=== PATIENT | female | born 1965 | race Caucasian/White ===

== ENCOUNTER → 2017-10-10 12:18 | Outpatient (CLI) | payer OTHER, MEDICAID, SELFPAY ==
--- NOTE | 2017-10-10 | DI.MG.S_ITS ---
BILATERAL DIGITAL SCREENING MAMMOGRAM 3D/2D WITH CAD: 10/10/2017 CLINICAL: Routine screening. Family history of breast cancer. Comparison is made to exams dated: 01/31/2014 mammogram, 09/09/2012 mammogram, and 06/26/2011 mammogram - [facility]. There are scattered fibroglandular elements in both breasts. Current study was also evaluated with a Computer Aided Detection (CAD) system. There is a 0.5 cm oval low density mass with a circumscribed margin in the right breast at 11 o'clock posterior depth. No other significant masses, calcifications, or other findings are seen in either breast. IMPRESSION: INCOMPLETE: NEEDS ADDITIONAL IMAGING EVALUATION The 0.5 cm oval low density mass in the right breast is indeterminate. Mediolateral and spot compression views as well as additional views with possible ultrasound are recommended. This exam was interpreted at Station ID: [id number]. NOTE: For mammograms, a report in lay terms will be sent to the patient. Approximately 15% of breast malignancies will not be visualized mammographically. In the management of a palpable breast mass, a negative mammogram must not discourage biopsy of a clinically suspicious lesion. Electronically Signed By: Ernie davis/saroj:10/12/2017 11:24:58 letter sent: Additional Imaging Needed ACR BI-RADS Category 0: Incomplete 3340F
== END ==
PROVIDERS: PCP Family Medicine; Visit Provider Family Medicine
DX: Z12.31 Encounter for screening mammogram for malignant neoplasm of breast (principal); Z80.3 Family history of malignant neoplasm of breast; R92.8 Other abnormal and inconclusive findings on diagnostic imaging of breast
CPT/HCPCS: 77063; 77067

== ENCOUNTER → 2017-10-22 09:59 | Outpatient (CLI) | payer OTHER, MEDICAID, SELFPAY ==
--- NOTE | 2017-10-22 | DI.MRI.S_ITS ---
PROCEDURE: MR FOOT RT WO CON INDICATIONS: 52 year-old female with right foot metatarsalgia since 2012, with last foot surgery December 2015. TECHNIQUE: Noncontrast sagittal T1 spin echo and T2 fast spin echo with fat saturation, long-axis T1 spin echo and T2 fast spin echo with fat saturation, short-axis T1 spin echo and T2 fast spin echo with fat saturation through the forefoot. COMPARISON: [facility], , FOOT 3V RIGHT, 04/04/2016, 15:49. [facility], CR, FOOT 3V RIGHT, 11/16/2015, 20:15. [facility], CR, FOOT 3V RIGHT, 10/05/2015, 15:37. [facility], CR, FOOT 3V RIGHT, 04/12/2014, 11:03. [facility], CR, FOOT 3V RIGHT, 02/07/2014, 13:23. FINDINGS: Image quality: There is metallic susceptibility artifact from medial column fixation and fusion hardware, obscuring adjacent bony and soft tissue structures, and causing inhomogeneous fat saturation. Bones and joints: Metallic susceptibility artifact obscures much of the first and proximal second metatarsals, as well as the medial mid foot. Patient is status post medial bunionectomy as before. No metatarsal stress fractures. There is patchy bone marrow edema within the proximal fourth and fifth metatarsals. The sesamoid bones appear in expected positions, without internal edema. There is lateral tarsometatarsal joint degeneration, with fifth metatarsal base subchondral cyst formation. No suspicious marrow space occupying lesions. Soft tissues: The visualized plantar foot muscles demonstrate normal signal and bulk. Visualized flexor and extensor tendons appear intact, without tenosynovitis. The distal insertion of the peroneus brevis tendon appears intact. No soft tissue ganglion cysts or bursal fluid collections. IMPRESSION: 1. Limited overall examination, secondary to metallic susceptibility artifact from medial column fixation and fusion hardware. 2. Marrow edema in the proximal fourth and fifth metatarsal shafts, consistent with stress reaction. No stress fractures. Dictated by: Tanvir Zaman M.D. on 10/22/2017 at 12:38 Approved by: Tanvir Zaman M.D. on 10/22/2017 at 12:50
== END ==
PROVIDERS: PCP Family Medicine; Visit Provider Podiatrist
DX: M77.41 Metatarsalgia, right foot (principal)
CPT/HCPCS: 73718

== ENCOUNTER → 2017-10-28 14:23 | Outpatient (CLI) | payer OTHER, MEDICAID, SELFPAY ==
--- NOTE | 2017-10-28 14:25 | DI.US.S_ITS ---
ULTRASOUND OF RIGHT BREAST: 10/28/2017 CLINICAL: Patient returns for additional imaging over a suspected mass in the right breast. Comparison is made to exams dated: 10/28/2017 mammogram, 10/10/2017 mammogram - [facility], and 01/31/2014 mammogram - [facility]. Color flow ultrasound of the right breast was performed. Goodwin scale images of the real-time examination were reviewed. There is a benign 0.5 cm x 0.4 cm x 0.4 cm lymph node in the right breast at 9 o'clock posterior depth 9 cm from the nipple. This correlates with mammography findings. IMPRESSION: BENIGN There is no sonographic evidence of malignancy. The 0.5 cm x 0.4 cm x 0.4 cm lymph node in the right breast is benign. A 1 year screening mammogram is recommended. This exam was interpreted at Station ID: [id number]. Electronically Signed By: Miguel rangel/saroj:10/28/2017 17:24:58 letter sent: Normal Exam Ultrasound BI-RADS: 2 Benign
--- NOTE | 2017-10-28 14:25 | DI.MG.S_ITS ---
UNILATERAL RIGHT DIGITAL DIAGNOSTIC MAMMOGRAM 3D/2D: 10/28/2017 CLINICAL: Additional evaluation requested from prior study. Comparison is made to exams dated: 10/10/2017 mammogram - [facility], 01/31/2014 mammogram, and 09/09/2012 mammogram - [facility]. There are scattered fibroglandular elements in the right breast. There is an oval low density mass with a circumscribed margin in the right breast at 9 o'clock posterior depth. No other significant masses or calcifications are seen in the breast. IMPRESSION: INCOMPLETE: NEEDS ADDITIONAL IMAGING EVALUATION The oval low density mass in the right breast is indeterminate. An ultrasound is recommended. This exam was interpreted at Station ID: [id number]. NOTE: For mammograms, a report in lay terms will be sent to the patient. Approximately 15% of breast malignancies will not be visualized mammographically. In the management of a palpable breast mass, a negative mammogram must not discourage biopsy of a clinically suspicious lesion. Electronically Signed By: Miguel rangel/saroj:10/28/2017 15:47:00 ACR BI-RADS Category 0: Incomplete 3340F
== END ==
PROVIDERS: PCP Family Medicine; Visit Provider Family Medicine
DX: R92.2 Inconclusive mammogram (principal); R59.0 Localized enlarged lymph nodes
CPT/HCPCS: 76642; 77065; G0279

== ENCOUNTER → 2018-04-02 13:57 | Outpatient (CLI) | payer OTHER, MEDICAID, SELFPAY ==
--- NOTE | 2018-04-02 13:59 | DI.RAD.S_ITS ---
PROCEDURE: XR LUMBAR SPINE 2-3V INDICATIONS: back pain TECHNIQUE: 3 views of the lumbar spine were acquired. COMPARISON: [facility], , T-SPINE WITHOUT CONTRAST, 06/03/2017, 10:10. FINDINGS: Bones: 5 [id number] vertebrae are present. There is prominent S1-S2, suggesting transitional anatomy. Mild levoscoliosis. Grade 1 spondylolisthesis L3-L4. Endplate osteophytes indicate early disc degeneration.. No vertebral body compression fractures. No suspicious bony lesions. Soft tissues: Overlying bowel gas pattern is normal. No suspicious soft tissue calcifications. IMPRESSION: Transitional anatomy may be present. Endplate osteophytes indicating early disc degeneration. Dictated by: Sai Atwood [facility] Interpreted: Félix Castano MD on 04/02/2018 at 15:47 Approved by: Félix Castano M.D. on 04/03/2018 at 9:43
== END ==
PROVIDERS: PCP Family Medicine; Visit Provider Family Medicine
DX: M51.36 Other intervertebral disc degeneration, lumbar region (principal); Z78.0 Asymptomatic menopausal state; M41.86 Other forms of scoliosis, lumbar region; M43.16 Spondylolisthesis, lumbar region; M54.9 Dorsalgia, unspecified; E07.9 Disorder of thyroid, unspecified; F17.210 Nicotine dependence, cigarettes, uncomplicated
CPT/HCPCS: 72100; 77080

== ENCOUNTER → 2018-07-05 15:52 | Outpatient (CLI) | payer OTHER, MEDICAID, SELFPAY | PROVIDERS: PCP Family Medicine; Visit Provider Family Medicine | DX: L08.9 Local infection of the skin and subcutaneous tissue, unspecified (principal); S20.101A Unspecified superficial injuries of breast, right breast, initial encounter | CPT/HCPCS: 87070; 87075; 87077; 87147; 87186; 87205 ==

== ENCOUNTER → 2018-07-22 09:40 | Outpatient (CLI) | payer OTHER, MEDICAID, SELFPAY ==
[2018-07-22 10:30] LABS: Hemoglobin A1C% w Est Avg Glu 5.3 % (4.0-6.0)
[2018-07-22 11:36] LABS: Alanine Aminotransferase 28 IU/L (9-52); Albumin 4.8 g/dL (3.5-5.0); Albumin Globulin Ratio 1.4 (1.0-2.8); Alkaline Phosphatase 88 U/L (38-126); Aspartate Aminotransferase 22 IU/L (14-36); Bilirubin Total 0.3 mg/dL (0.2-1.3); Blood Urea Nitrogen 30 mg/dL (7-17); Carbon Dioxide 30 mmol/L (22-32); Chloride 99 mmol/L (98-107); Cholesterol 234 mg/dL (140-199); Estimated Glomerular Filt Rate 47.4 mL/min (>60); Globulin 3.5 g/dL (1.7-4.1); Glucose 116 mg/dL (70-100); HDL Cholesterol 54 mg/dL (40-60); HEMOLYSIS < 15 (0-50); LDL Cholesterol Calculated 117 mg/dL (<100); Sodium 139 mmol/L (137-145); Total Protein 8.3 g/dL (6.3-8.2); Triglycerides 315 mg/dL (35-150)
[2018-07-22 11:46] LABS: Potassium 5.4 mmol/L (3.4-5.1)
[2018-07-22 11:53] LABS: Vitamin D 25 Hydroxy (D3) 38.2 ng/mL (30.0-100.0)
[2018-07-22 12:01] LABS: Creatinine Urine Random 133.8 mg/dL
[2018-07-22 12:03] LABS: Microalbumi Creatinin Ratio Ur 8.2 ug/mg CR (<30); Microalbumin Urine Random 1.1 mg/dL (0-1.6)
== END ==
PROVIDERS: PCP Family Medicine; Visit Provider Family Medicine
DX: E03.9 Hypothyroidism, unspecified (principal); E04.1 Nontoxic single thyroid nodule; E78.5 Hyperlipidemia, unspecified; I10 Essential (primary) hypertension; R73.09 Other abnormal glucose; R89.9 Unspecified abnormal finding in specimens from other organs, systems and tissues; Z87.81 Personal history of (healed) traumatic fracture
CPT/HCPCS: 36415; 80053; 80061; 82043; 82306; 82570; 83036; 84443

== ENCOUNTER → 2018-10-20 14:08 | Outpatient (CLI) | payer OTHER, MEDICAID, SELFPAY ==
[2018-10-20 15:49] LABS: Alanine Aminotransferase 23 IU/L (9-52); Albumin 4.2 g/dL (3.5-5.0); Albumin Globulin Ratio 1.5 (1.0-2.8); Alkaline Phosphatase 88 U/L (38-126); Aspartate Aminotransferase 22 IU/L (14-36); BUN Creatinine Ratio 22.7 (6-22); Bilirubin Total 0.4 mg/dL (0.2-1.3); Blood Urea Nitrogen 34 mg/dL (7-17); Carbon Dioxide 29 mmol/L (22-32); Chloride 100 mmol/L (98-107); Estimated Glomerular Filt Rate 36.6 mL/min (>60); Globulin 2.8 g/dL (1.7-4.1); Glucose 111 mg/dL (70-100); HEMOLYSIS < 15 (0-50); Potassium 4.6 mmol/L (3.4-5.1); Sodium 139 mmol/L (137-145)
== END ==
PROVIDERS: PCP Family Medicine; Visit Provider Family Medicine
DX: I10 Essential (primary) hypertension (principal)
CPT/HCPCS: 36415; 80053

== ENCOUNTER → 2018-10-27 12:40 | Outpatient (CLI) | payer OTHER, MEDICAID, SELFPAY ==
[2018-10-27 13:45] LABS: Blood Urea Nitrogen 17 mg/dL (7-17); Calcium 9.7 mg/dL (8.4-10.2); Carbon Dioxide 31 mmol/L (22-32); Chloride 99 mmol/L (98-107); Estimated Glomerular Filt Rate 58.5 mL/min (>60); Glucose 105 mg/dL (70-100); HEMOLYSIS < 15 (0-50); Potassium 4.3 mmol/L (3.4-5.1); Sodium 137 mmol/L (137-145)
[2018-10-27 14:23] LABS: Hemoglobin A1C% w Est Avg Glu 5.4 % (4.0-6.0)
== END ==
PROVIDERS: PCP Family Medicine; Visit Provider Family Medicine
DX: N28.9 Disorder of kidney and ureter, unspecified (principal); R89.9 Unspecified abnormal finding in specimens from other organs, systems and tissues; R73.09 Other abnormal glucose; Z13.1 Encounter for screening for diabetes mellitus
CPT/HCPCS: 36415; 80048; 83036

== ENCOUNTER → 2018-10-27 14:01 | Outpatient (CLI) | payer OTHER, MEDICAID, SELFPAY ==
--- NOTE | 2018-10-27 14:02 | DI.MRI.S_ITS ---
PROCEDURE: MR KNEE RT WO CON INDICATIONS: right knee pain TECHNIQUE: Noncontrast sagittal PD fast spin echo and T2 fast spin echo with fat saturation, sagittal 3-D FLASH with fat saturation; coronal T1 spin echo and PD fast spin echo with fat saturation, and axial PD fast spin echo with fat saturation through the knee. COMPARISON: None. FINDINGS: Image quality: Excellent. Menisci: The medial and lateral menisci demonstrate normal morphology and internal signal. The meniscal root ligaments appear intact. Cruciate ligaments: The anterior and posterior cruciate ligaments appear intact. Medial structures: The medial collateral ligament appears intact. Visualized portions of the pes anserinus tendons appear normal. Small amount of medial bursal fluid. Lateral structures: The lateral collateral ligament, long and short heads of the biceps femoris tendon appear intact. The popliteus tendon appears normal. Iliotibial band appears normal. Anterior structures: The quadriceps and patellar tendons appear intact. There is mild T2 signal elevation within the patellar tendon at the patellar and tibial insertion sites. Patellar alignment is normal. No femoral trochlear dysplasia or ventral trochlear prominence. No edema in the infrapatellar fat pad. Bones and cartilage: No bone marrow contusions or fractures. Mild diffuse articular cartilage loss overlies the weightbearing aspects of the medial femoral condyle and medial tibial plateau. A focal region of moderate articular cartilage loss overlies the medial patellar facet, spanning roughly 4 mm. Joint space: There is physiologic knee joint fluid. No Elizabeth's cyst. Normal appearing synovial plicae are incidentally noted. IMPRESSION: 1. Mild patellar tendinitis. 2. No internal derangement. 3. Medial and patellofemoral compartment due to cartilage loss. 4. Mild medial bursitis. Dictated by: Hoda Da Silva M.D. on 10/27/2018 at 15:34 Approved by: Hoda Da Silva M.D. on 10/27/2018 at 15:36
== END ==
PROVIDERS: PCP Family Medicine; Visit Provider Family Medicine
DX: M25.561 Pain in right knee (principal); M76.51 Patellar tendinitis, right knee; N28.9 Disorder of kidney and ureter, unspecified; R73.09 Other abnormal glucose; R89.9 Unspecified abnormal finding in specimens from other organs, systems and tissues; Z13.1 Encounter for screening for diabetes mellitus
CPT/HCPCS: 36415; 73721; 80048; 83036

== ENCOUNTER → 2018-11-10 13:59 | Outpatient (CLI) | payer OTHER, MEDICAID, SELFPAY ==
--- NOTE | 2018-11-10 14:07 | DI.NM.S_ITS ---
PROCEDURE: NM HIDA WITH CCK PHARMACEUTICAL: 5.0 mCi Tc-99m mebrofenin IV; 1.0 mcg CCK IV. INDICATIONS: Right upper quadrant pain TECHNIQUE: Following intravenous administration of Tc-99m mebrofenin, sequential anterior abdominal images were obtained. To evaluate the contractile response of the gallbladder in response to Cholecystokinin (CCK), sincalide (0.02 ?g/kg) was administered by slow intravenous infusion approximately 60 minutes after the administration of the radiopharmaceutical. Sequential imaging was continued for 30 minutes after the start of CCK infusion. Gallbladder ejection fraction was calculated. COMPARISON: [facility], CT, CT ABDOMEN PELVIS WITH CONTRAST, 10/24/2018, 22:07. FINDINGS: Biliary scan: There is normal tracer uptake and excretion by the liver. There is normal visualization of the intrahepatic ducts, common bile duct, and gallbladder. There is normal tracer transit into the duodenum. CCK stimulation: There is normal contractile response of the gallbladder to CCK infusion. The calculated gallbladder ejection fraction is 84%; normal values are above 35%. It has been shown that any patient abdominal pain after CCK administration is related to the rate of CCK injection, rather than to any underlying gallbladder disease (Clinical Nuclear Medicine 2012; 37: 63-70. Journal of Nuclear Medicine 2014; 55: 1-9). IMPRESSION: 1. Normal filling of gallbladder. No evidence for acute cholecystitis. 2. Normal contractile response of gallbladder to CCK stimulation. Dictated by: Félix Castano M.D. on 11/10/2018 at 15:51 Approved by: Félix Castano M.D. on 11/10/2018 at 15:53
== END ==
PROVIDERS: PCP Family Medicine; Visit Provider Family Medicine
DX: R10.11 Right upper quadrant pain (principal)
CPT/HCPCS: 78227; A9537; J2805

== ENCOUNTER → 2018-12-01 14:46 | Outpatient (CLI) | payer OTHER, MEDICAID, SELFPAY ==
[2018-12-01 15:34] LABS: D Dimer 329 ng/mL (<230)
[2018-12-01 15:40] LABS: Add Manual Diff / Slide Review NO; Basophils Absolute Auto 100 /uL (0-100); Basophils Percent Auto 0.9 % (0-2); Eosinophils Absolute Auto 300 /uL (0-450); Eosinophils Percent Auto 2.5 % (2-4); Hematocrit 42.5 % (36-46); Hemoglobin 14.4 g/dL (12.0-16.0); Lymphocytes Absolute Auto 4400 /uL (1100-4500); Lymphocytes Percent Auto 37.3 % (25-40); Mean Corpuscular HGB Conc 33.9 % (30-36); Mean Corpuscular Hemoglobin 31.2 PG (26-34); Mean Corpuscular Volume 92.2 fL (80-100); Monocytes Absolute Auto 700 /uL (0-900); Monocytes Percent Auto 5.8 % (3-14); Neutrophils Absolute Auto 6300 /uL (1500-7000); Neutrophils Percent Auto 53.5 % (50-75); Platelet Count 470 X10^3/uL (150-400); Red Blood Cell Count 4.61 X10^6/uL (4.0-5.2); Red Cell Distribution Width 13.4 % (11.6-14.8); White Blood Cell Count 11.7 X10^3/uL (4.5-11.0)
[2018-12-01 15:53] LABS: Blood Urea Nitrogen 26 mg/dL (7-17); Calcium 9.7 mg/dL (8.4-10.2); Carbon Dioxide 28 mmol/L (22-32); Chloride 101 mmol/L (98-107); Estimated Glomerular Filt Rate 58.5 mL/min (>60); Glucose 90 mg/dL (70-100); HEMOLYSIS < 15 (0-50); Potassium 4.8 mmol/L (3.4-5.1); Sodium 140 mmol/L (137-145)
== END ==
PROVIDERS: PCP Family Medicine; Visit Provider Hospitalist
DX: I10 Essential (primary) hypertension (principal); M54.9 Dorsalgia, unspecified
CPT/HCPCS: 36415; 80048; 85025; 85379

== ENCOUNTER → 2018-12-24 09:19 | Outpatient (CLI) | payer OTHER, MEDICAID, SELFPAY ==
--- NOTE | 2018-12-24 09:35 | DI.RAD.S_ITS ---
PROCEDURE: XR SACROILIAC JOINT MIN 3V INDICATIONS: Right sacroiliac joint tenderness TECHNIQUE: 3 views of the sacroiliac joints were acquired. COMPARISON: None. FINDINGS: Bones: No bony erosions or ankylosis. No suspicious bony lesions. No fractures. Partial left-sided L5 sacralization. There is mild sacroiliac sclerosis without joint space narrowing Soft tissues: Overlying bowel gas pattern is normal. No suspicious soft tissue densities. IMPRESSION: Mild bilateral sacroiliac sclerosis without joint space narrowing. Incidentally noted partial left-sided L5 sacralization Dictated by: Mariusz Dudley M.D. on 12/24/2018 at 12:48 Approved by: Mariusz Dudley M.D. on 12/24/2018 at 12:49
[2018-12-24 09:53] LABS: Appearance Urine UA CLEAR; Bilirubin Urine UA NEGATIVE (NEGATIVE); Color Urine UA YELLOW; Glucose Urine UA NEGATIVE (Negative); Ketones Urine UA NEGATIVE (NEGATIVE); Leukocyte Esterase Urine UA 1+ (NEGATIVE); Nitrite Urine UA NEGATIVE (Negative); Occult Blood Urine UA 1+ (Negative); Protein Urine UA NEGATIVE (Negative); Specific Gravity Urine UA 1.015 (1.000-1.035); Urobilinogen Urine UA 0.2 E.U./dL (0.2); pH Urine UA 5.5 (4.5-8.0)
[2018-12-24 10:30] LABS: Bacteria Urine Moderate (10-30); RBC Urine 0-1/HPF (0-5/HPF); Squamous Epithelial Cell Urine 0-1 /HPF (0-5/HPF); WBC Urine 1-5/HPF (0-5/HPF)
[2018-12-24 10:31] LABS: Culture Indicated Urine Specimen Cultured
[2018-12-24 11:17] LABS: Erythrocyte Sedimentation Rate 5 MM/HR (0-20)
[2018-12-24 11:23] LABS: C-Reactive Protein Quant 1.3 mg/dL (<1.0)
== END ==
PROVIDERS: Hospitalist; PCP Family Medicine; Visit Provider Family Medicine
DX: M46.1 Sacroiliitis, not elsewhere classified (principal); M54.9 Dorsalgia, unspecified
CPT/HCPCS: 36415; 72202; 81001; 85651; 86140; 87077; 87086; 87186

== ENCOUNTER → 2018-12-31 09:25 | Outpatient (CLI) | payer OTHER, MEDICAID, SELFPAY ==
[2019-01-02 21:26] LABS: HLA B27 NEGATIVE (Negative)
== END ==
PROVIDERS: PCP Family Medicine; Visit Provider Family Medicine
DX: M46.1 Sacroiliitis, not elsewhere classified (principal)
CPT/HCPCS: 36415; 86812

== ENCOUNTER → 2019-01-05 13:04 | Outpatient (CLI) | payer OTHER, MEDICAID, SELFPAY ==
[2019-01-05 13:48] LABS: Bacteria Urine None Seen
[2019-01-05 13:52] LABS: Appearance Urine UA CLEAR; Bilirubin Urine UA NEGATIVE (NEGATIVE); Color Urine UA YELLOW; Glucose Urine UA NEGATIVE (Negative); Ketones Urine UA NEGATIVE (NEGATIVE); Leukocyte Esterase Urine UA 1+ (NEGATIVE); Nitrite Urine UA NEGATIVE (Negative); Occult Blood Urine UA 1+ (Negative); Protein Urine UA NEGATIVE (Negative); Urobilinogen Urine UA 0.2 E.U./dL (0.2)
[2019-01-05 13:58] LABS: Culture Indicated Urine Cult Not Indicated; RBC Urine 5-10/HPF (0-5/HPF); Squamous Epithelial Cell Urine 5-10 /HPF (0-5/HPF); WBC Urine 5-10/HPF (0-5/HPF)
== END ==
PROVIDERS: PCP Family Medicine; Visit Provider Hospitalist
DX: M54.9 Dorsalgia, unspecified (principal)
CPT/HCPCS: 81001

== ENCOUNTER → 2019-02-21 13:47 | Outpatient (CLI) | payer OTHER, MEDICAID, SELFPAY ==
--- NOTE | 2019-02-21 13:51 | DI.MRI.S_ITS ---
PROCEDURE: MR LUMBAR SPINE WO CON INDICATIONS: severe low back pain TECHNIQUE: Noncontrast sagittal T1 spin echo and T2 fast echo, sagittal STIR, axial T1 and T2 fast spin echo through the lumbar spine. In cases with scoliosis, additional coronal T2 fast spin echo may be performed. COMPARISON: [facility], , L-SPINE WITHOUT CONTRAST, 05/04/2007, 20:45. FINDINGS: Image quality: Excellent. Alignment and Curvature: Transitional lumbosacral vertebra is seen. Please see montage image for further clarification of the spinal segmental level numbering scheme used in this report, similar to that used on prior study from 05/04/07, and prior to any spinal intervention. Left-sided lumbosacral pseudoarthrosis, congenital. There is normal bony alignment. Bone Marrow: Marrow is of normal overall signal. No acute vertebral body compression fractures. Multilevel degenerative endplate sclerosis and spurring. Diffuse facet arthropathy. Spinal Cord: Conus medullaris terminates at the L2 level. Visualized cord demonstrates normal signal and size. Paraspinous Soft Tissues: No paravertebral masses. Dorsal epidural lipomatosis is seen from the level of L3-S1 L1-L2: Normal appearance. L2-L3: Normal appearance. L3-L4: Normal appearance. L4-L5: Posterior annular fissure. Mild central canal narrowing in part due to dorsal epidural lipomatosis. Partial effacement of both lateral recesses with bilaterally symmetric appearance. Mild left foraminal narrowing. No right foraminal stenosis. Overall, no interval change L5-S1: Mild central canal narrowing due to epidural lipomatosis. Lateral recess appear grossly patent. Mild bilateral foraminal narrowing, grossly unchanged S1-S2: Sagittal canal narrowing due to epidural lipomatosis. Lateral recess appear grossly patent. No foraminal stenosis. IMPRESSION: Overall, no high-grade canal or foraminal stenosis. Increase in diffuse epidural lipomatosis since the prior study otherwise no interval change Diffuse facet arthropathy. Dictated by: Mariusz Dudley M.D. on 02/21/2019 at 17:11 Approved by: Mariusz Dudley M.D. on 02/21/2019 at 17:18
== END ==
PROVIDERS: PCP Family Medicine; Visit Provider Family Medicine
DX: M54.5 Low back pain (principal); E88.2 Lipomatosis, not elsewhere classified; M47.816 Spondylosis without myelopathy or radiculopathy, lumbar region
CPT/HCPCS: 72148

== ENCOUNTER → 2019-08-20 11:10 | Outpatient (CLI) | payer OTHER, SELFPAY ==
[2019-08-20 17:12] LABS: Influenza A - CEPHEID Flu A NEGATIVE (NEGATIVE); Influenza B - CEPHEID Flu B NEGATIVE (NEGATIVE)
[2019-08-22 12:04] LABS: COVID19 Sendout Not Detected (Not Detected)
== END ==
PROVIDERS: PCP Family Medicine; Visit Provider Physician Assistant
DX: R05 Cough (principal); R50.9 Fever, unspecified
CPT/HCPCS: 87502; 87635

== ENCOUNTER → 2019-10-18 12:19 | Outpatient (CLI) | payer OTHER, SELFPAY ==
[2019-10-22 02:09] LABS: H pylori Breath Test Negative (Negative)
== END ==
PROVIDERS: PCP Family Medicine; Referring Provider Family Medicine; Visit Provider Family Medicine
DX: R10.13 Epigastric pain (principal)
CPT/HCPCS: 83013

== ENCOUNTER → 2019-10-22 10:02 | Outpatient (CLI) | payer OTHER, SELFPAY ==
--- NOTE | 2019-10-22 | DI.MG.S_ITS ---
BILATERAL DIGITAL SCREENING MAMMOGRAM 3D/2D WITH CAD: 10/22/2019 CLINICAL: Routine screening. Family history of breast cancer. Comparison is made to exams dated: 10/10/2017 mammogram - [facility], 01/31/2014 mammogram, and 09/09/2012 mammogram - [facility]. There are scattered fibroglandular elements in both breasts. Current study was also evaluated with a Computer Aided Detection (CAD) system. No significant masses, calcifications, or other findings are seen in either breast. There has been no significant interval change. IMPRESSION: NEGATIVE There is no mammographic evidence of malignancy. A 1 year screening mammogram is recommended. This exam was interpreted at Station ID: [id number]. NOTE: For mammograms, a report in lay terms will be sent to the patient. Approximately 15% of breast malignancies will not be visualized mammographically. In the management of a palpable breast mass, a negative mammogram must not discourage biopsy of a clinically suspicious lesion. Electronically Signed By: Fahad bethea/saroj:10/24/2019 07:48:47 letter sent: Normal Exam ACR BI-RADS Category 1: Negative 3341F
== END ==
PROVIDERS: PCP Family Medicine; Referring Provider Family Medicine; Visit Provider Family Medicine
DX: Z12.31 Encounter for screening mammogram for malignant neoplasm of breast (principal); Z80.3 Family history of malignant neoplasm of breast
CPT/HCPCS: 77063; 77067

== ENCOUNTER → 2019-11-05 14:02 | Outpatient (CLI) | payer OTHER, SELFPAY ==
[2019-11-06 02:21] LABS: COVID19 Sendout Not Detected (Not Detect)
== END ==
PROVIDERS: PCP Family Medicine; Visit Provider Physician Assistant
DX: Z01.818 Encounter for other preprocedural examination (principal)
CPT/HCPCS: 87635

== ENCOUNTER 2019-11-08 13:07 | Day surgery (SDC) | payer OTHER, SELFPAY ==
[2019-11-08] VITALS (8 sets, daily range): BP systolic 111–151; BP diastolic 87–113; PULSE 81–104; RESP 15–31; TEMP 36.2–36.6; O2SAT 92–100; BMI 36.4
--- NOTE | 2019-11-08 | PATH_ITS ---
[facility] Accession Number: [id number] . 01 Material submitted: . PART A: gastrointestinal site - GASTRIC BIOPSIES PART B: esophagus - DISTAL ESOPHAGUS BIOPSIES . 01 Diagnosis: A. Stomach, Biopsies: Gastric antral mucosa with mild chronic inflammation. Negative for Helicobacter organism by immunohistochemistry. Negative for intestinal metaplasia. Negative for dysplasia or malignancy. . B. Distal Esophagus, Biopsies: Proximal gastric-type mucosa with mild chronic inflammation. Negative for specialized intestinal metaplasia on alcian blue stain. Negative for dysplasia or malignancy. [facility] 11/10/2019 1313 Local . 01 Electronically signed: . Juan R Ambriz MD, PhD, Pathologist NPI- [id number] . 01 Gross description: . Part A: GASTRIC BIOPSIES: Received in formalin are 2 fragment(s) of trejo, soft tissue measuring 0.1 x 0.1 x 0.1 cm to 0.3 x 0.2 x 0.2 cm submitted entirely in 1 cassette(s) Part B: DISTAL ESOPHAGUS BIOPSIES: Received in formalin are 2 fragment(s) of trejo, soft tissue measuring 0.1 x 0.1 x 0.1 cm to 0.2 x 0.2 x 0.2 cm submitted entirely in 1 cassette(s) /[facility]ACK 11/08/2019 2224 Local . 01 Microscopic: . A. An immunohistochemical stain was performed to evaluate for Helicobacter organisms and is negative. The control stain showed appropriate reactivity. . B. An alcian blue stain is performed to evaluate for specialized intestinal metaplasia, and is negative for goblet cells. A control stain shows appropriate reactivity. . * This test was developed and its performance characteristics determined by [employer]. It has not been cleared or approved by the U.S. Food and Drug Administration. The FDA has determined that such clearance or approval is not necessary. This test is used for clinical purposes. It should not be regarded as investigational or for research. . 01 Pathologist provided ICD-10: R10.13, K29.70, K20.9 . 01 CPT . 962690, 346251, Q75887, 956813 Performed at: [address] [facility] [address], [place], [place] [id number] MD Ernie Lamb MD Phone: [phone]
[2019-11-08] MEDS: SODIUM CHLORIDE 0.9% 1,000 ML 200 ML IV (13:41)
--- NOTE | 2019-11-08 14:14 | PM.PREOP ---
Pre-operative Note COVID-19 COVID-19 status: Negative Result date/Date tested (Pos, Neg/Pending): 11/05/19 Interval Note History & Physical reviewed/Exam performed by Physician: Yes Changes to H&P: No ASA Class (for procedural sedation): III
--- NOTE | 2019-11-08 14:16 | PM.OP.ENDO ---
Operative Date/Time/Diagnoses Date of procedure: 11/08/19 Time of procedure: 14:16 Pre-op diagnosis: Epigastric pain Post-op diagnosis: other (gastritis, mild gastric ulcers without active bleeding or exposed vessel, Hill grade 4 hiatal hernia) Procedure & Clinicians Study performed: EGD with cold forceps biopsies of stomach and distal esophagus Same procedure as scheduled: Yes Indications: Epigastric pain, history of perforated peptic ulcer Surgeon: Rebekah Ordonez Procedure Notes SCOAP/Timeout: Before Procedure in detail: The patient was brought to the room and placed in left lateral decubitus position with all bony prominences padded. A bite block was positioned in the patient's mouth to protect the lips, teeth, and tongue for the procedure. A time-out was performed and then the patient was given procedural sedation starting with 4 mg of Versed and 100 mcg of fentanyl. The patient was wide awake and continuing to talk around the bite block. She was gradually given additional doses of Versed until we reached 8 mg, and the patient was still completely alert and talking around the bite block. At this point we called for the anesthesiologist to come in and put her under MAC sedation with propofol. Vitals were monitored throughout the procedure and remained stable. Once adequately sedated, the procedure was begun. The lubricated gastroscope was passed through the bite block and across the tongue and into the esophagus. A tubular view of the esophagus was maintained as the scope was advanced through the esophagus and into the stomach. The scope was advanced through the stomach and to the pylorus. The scope was gently popped through the pylorus and into the duodenal bulb. The scope was flexed and advanced into the second and third portions of the duodenum. The duodenum and duodenal bulb appeared fairly normal. No duodenal ulcers or signs of duodenitis were seen. The scope was withdrawn into the stomach. The stomach appeared irritated with moderate antral gastritis. Biopsies were taken at this site. Some mild ulcerations were seen, but no active bleeding and no exposed vessels were seen. There was no heaped up mucosa or chronic appearing ulcers. The scope was retroflexed and the gastric cardia was examined. The there was a Hill grade 4 hiatal hernia which was 4 cm x 4 cm in size. The scope was then straightened, and withdrawn into the esophagus. The Z-line appeared abnormal with tongues of salmon-colored mucosa coming up into the distal esophagus. These were biopsied. The esophagus appeared otherwise normal. The scope was then withdrawn through the esophagus with a tubular view. The scope was then withdrawn from the patient the procedure was concluded. The patient tolerated the procedure well and was transferred to the PACU in stable condition. Findings: Whyte's esophagus, gastritis and hiatal hernia Specimen(s): other (Distal esophagus, gastric mucosa) Complications: none Impression: Moderate gastritis, with some mild ulcerations, no active bleeding or exposed vessels. Post-procedure Recommendations: Continue medication(s) (Continue omeprazole but increased dose to 40 mg twice daily) and Other recommendation (Follow-up with Dr. Ordonez to review biopsy results and recommendations) Follow up: weeks (Two weeks) Disposition: PACU
[2019-11-08] MEDS: LIDOCAINE 4% SOLN 50 ML 20 ML TOP (14:37)
[2019-11-08] MEDS: fentaNYL 250 MCG/5 ML INJ IV (14:37)
[2019-11-08] MEDS: MIDAZOLAM 5 MG/5 ML VIAL IV (14:38)
[2019-11-08] MEDS: ALBUTEROL 2.5 MG/3 ML NEB (ADULT) INH (15:04)
[2019-11-08] MEDS: ACETAMINOPHEN 325 MG TABLET 650 MG PO (15:56)
--- NOTE | 2019-11-08 16:02 | SUR.PHASEII ---
Dr. Ordonez evaluated patient. ordered hydration, caffeine and Tylenol for the patient and patient to go to the ER if there is no improvement. IV site patient, po water provided. Patient declined caffeine. Tylenol given. Patient crying, holding head and rocking. Will continue to monitor.
--- NOTE | 2019-11-08 16:45 | SUR.PHASEII ---
Patient still teary. Denied improvement of the headache. Discussed recommendation to go to the ER if she is without improvement. Patient agreed. Patient declined to review discharge instructions. Patient taken to the ER with belongings bag. Report given to Olga. Patient smiling and able to transfer self to ER stretcher. IV patent. Patient's spouse arrived and with patient.
== END 2019-11-08 16:35 | disposition home or self-care (01) ==
PROVIDERS: PCP Family Medicine; Referring Provider Surgery; Visit Provider Surgery
PROC: 0DJ08ZZ Inspection of Upper Intestinal Tract, Via Natural or Artificial Opening Endoscopic (ICD-10-PCS; CPT 43235; principal; 2019-11-08 14:30)
DX: K29.50 Unspecified chronic gastritis without bleeding (principal); M79.7 Fibromyalgia; E66.9 Obesity, unspecified; I10 Essential (primary) hypertension; F17.210 Nicotine dependence, cigarettes, uncomplicated; G43.009 Migraine without aura, not intractable, without status migrainosus; K22.70 Barrett's esophagus without dysplasia; K44.9 Diaphragmatic hernia without obstruction or gangrene; K25.9 Gastric ulcer, unspecified as acute or chronic, without hemorrhage or perforation; K21.0 Gastro-esophageal reflux disease with esophagitis
CPT/HCPCS: 43239; 99283; J1100; J1200; J2250; J2704; J2765; J3010; J7613

== ENCOUNTER 2019-11-08 16:39 | Emergency (ER) | payer OTHER, SELFPAY ==
[2019-11-08 16:45] VITALS: BP 158/87; PULSE 82; RESP 16; TEMP 36.9; O2SAT 97; BMI 36.4
--- NOTE | 2019-11-08 17:07 | ED_ITS ---
HPI - Headache <Brenda GallardoJOHN - Last Filed: 11/08/19 18:41> General Chief Complaint: Headache Stated Complaint: Headache,brought from OR Time Seen by Provider: 11/08/19 16:40 History of Present Illness HPI Narrative: 54-year-old female with a history of migraines, presents emergency department from postop following an endoscopy that occurred approximately 3 hours ago. Versed and fentanyl were used for sedation. However, patient was difficult to sedate and propofol was used as well. In recovery she complained of a migraine, was given fluids and Zofran and Tylenol as well as caffeine in the recovery area. Patient was brought emergency department for further evaluation. She states that she gets migraines multiple times a month with usually to ?bad ?migraines a month. She has tried multiple medications including triptans, Reglan, amitriptyline, and etc drip without relief. Patient states she usually takes oxycodone or Dilaudid for her migraines. She reports mild light sensitivity and a frontal pain of 8/10. Patient denies double vision, vision loss, aura, neck pain, vomiting, chest pain, shortness of breath, neck stiffness, dizziness, gait disturbances, or any other concerns. Related Data Home Medications Medication Instructions Recorded Confirmed acetaminophen 500 mg capsule 1,000 mg PO Q6H PRN 11/03/19 11/08/19 Previous Rx's Medication Instructions Recorded omeprazole 20 mg capsule,delayed 20 mg PO BID #60 cap 01/13/19 release atorvastatin 40 mg tablet 40 mg PO HS #90 tab 04/18/19 cyclobenzaprine 10 mg tablet 10 mg PO BEDTIME #30 tab 08/15/19 duloxetine 60 mg capsule,delayed 60 mg PO DAILY #30 cap 08/15/19 release levothyroxine 112 mcg tablet 112 mcg PO QAM #30 tab 08/15/19 meloxicam 7.5 mg tablet 7.5 mg PO DAILY #30 tab 08/15/19 paroxetine HCl 40 mg tablet 20 mg PO QAM #45 tab 08/24/19 benzonatate 200 mg capsule 200 mg PO TID #60 cap 08/31/19 trazodone 50 mg tablet 100 mg PO BEDTIME PRN #60 tab 09/20/19 triamterene 37.5 1 tab PO QDAY #30 tab 05/11/20 mg-hydrochlorothiazide 25 mg tablet oxycodone 5 mg capsule 5 mg PO Q8H PRN #10 cap 10/18/19 omeprazole 40 mg PO BID #60 cap 11/08/19 Allergies Allergy/AdvReac Type Severity Reaction Status Date / Time felodipine [FELODIPINE] Allergy Severe EDEMA IN Verified 11/08/19 13:24 THE LOWER LEGS pineapple [PINEAPPLE] Allergy Severe TONGUE Verified 11/08/19 13:24 SWELLING strawberry [STRAWBERRY] Allergy Severe ITCHING, Verified 11/08/19 13:24 WELTS ON ARMS Sulfa (Sulfonamide Allergy Severe ANAPHYLAXIS Verified 11/08/19 13:24 Antibiotics) [SULFA (SULFONAMIDE ANTIBIOTICS)] tramadol [TRAMADOL] Allergy Severe SWELLING Verified 11/08/19 13:24 IN THE LEGS adhesive tape Allergy Intermediate red, Verified 11/08/19 14:44 blister, itching gabapentin [GABAPENTIN] Allergy Unknown leg Verified 11/08/19 13:24 swelling NSAIDS (Non-Steroidal Allergy Unknown irritates Verified 11/08/19 13:24 Anti-Inflamma GI tract [NSAIDS (NON-STEROIDAL ANTI-INFLAMMA] sucralfate AdvReac Mild itching Verified 11/08/19 13:24 Review of Systems <JOHN Deshpande - Last Filed: 11/08/19 18:41> Review of Systems Narrative: REVIEW OF SYSTEMS: GENERAL: Denies fever or chills. HENT: No head trauma. Reports headache, see HPI. EYES: No loss of vision, double vision, eye pain, or irritation. CARDIOVASCULAR: No chest pain or syncope. RESPIRATORY: No shortness of breath or cough. GASTROINTESTINAL: No vomiting, diarrhea, or constipation. Intermittent nausea, see HPI. GENITOURINARY: No flank pain or dysuria. MUSCULOSKELETAL: No pain, weakness, or deformities. INTEGUMENTARY: No rash, lesions, or pruritus. NEURO: No numbness, tingling, memory loss, or confusion. PSYCH: No behavior or mood changes. Patient History <JOHN Deshpande - Last Filed: 11/08/19 18:41> Medical History Anemia (Chronic) Anxiety (Chronic) Chicken pox (Resolved 1978) Depression (Chronic) Fibromyalgia (Chronic) Foot pain (Chronic 2012) Gastric ulcer (Resolved 01/24/10) Hypertension (Chronic) Hypothyroidism (Chronic) Irregular periods/menstrual cycles (Chronic) Mumps (Resolved 1969) Osteoarthritis (Chronic) Recurrent sinusitis (Chronic) Surgical History Anesthesia (Resolved) History of incisional hernia repair (Resolved 01/17/13) History of surgery (Resolved 12/2015) Hx of abdominal surgery (Resolved 01/24/10) Status post appendectomy (Resolved 1977) Status post delivery (Resolved 08/28/00) Status post right foot surgery (Resolved 06/19/15) Family History Grandmother Hypertension Stroke Mother Age: 75 Hypertension Mental health problem Stroke Sister Age: 47 Hypertension High cholesterol Mental health problem Father Traffic accident Grandfather Swallowed foreign body Grandfather No problems noted. Grandmother No problems noted. Sister No problems noted. 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 seatbelt use: always helmet use: Yes water heater temp set < 120 deg: Yes working smoke detector in home: Yes fire extinguisher in home: Yes carbon monox detector in home: Yes firearms in home: No Smoking Status: Current every day smoker quit status: quit date established during the past year weight has: increased > 10 lbs well-balanced diet: daily or most days daily servings fruits/ve-4 caffeine: Yes eating out: 1-3 times/week Smoking Status: Current every day smoker alcohol intake frequency: holidays/special occasions only Substance Use Type: does not use Exam <JOHN Deshpande - Last Filed: 11/08/19 18:41> Initial Vital Signs Initial Vital Signs: Vital Signs Temperature 98.4 F 11/08/19 16:45 Pulse Rate 82 11/08/19 16:45 Respiratory Rate 16 11/08/19 16:45 Blood Pressure 158/87 H 11/08/19 16:45 Pulse Oximetry 97 11/08/19 16:45 PHYSICAL EXAMINATION: GENERAL: Well groomed, alert, and cooperative. Answers questions promptly and appropriately. Vital signs noted. HENT: Normocephalic. Ear canals patent. Oral mucosa is pink and moist. EYES: PERRLA, EOMIs, conjunctiva pink, sclera white, no periorbital swelling. NECK: Full ROM, no midline or spinal tenderness. CARDIOVASCULAR: S1 and S2 sounds normal. Regular rate and rhythm, no murmurs, clicks, or bruits. RESPIRATORY: Normal respiratory rate, trachea midline, airway patent. No stridor, nasal flaring or accessory muscle use. Lungs are clear in all arevalo without wheeze, rhonchi, or crackles. MUSCULOSKELETAL: Normal gait and coordination. Equal tone and mass bilaterally. Equal strength bilaterally to upper and lower extremities. No spinal tenderness. EXTREMITIES: CMS intact. Moves all extremities. SKIN: Warm, dry, soft, appropriate color for ethnicity. No lesions, rashes, or wounds to visualized areas. NEURO: Alert and Oriented X 3. GCS: 15. Good coordination. No ataxia, or sensory deficits, or cognitive issues. Cranial Nerves: II: Visual arevalo grossly intact. III & IV & : EOMIs V: Able to open and close jaw. VII: Facial movements symetrical. Able to close eyelids tightly. VIII: Hearing grossly intact, adequate balance. X: Uvula pronation intact. XI: Patient is able to shrug shoulders. XII: Patient is able to stick out tongue and move it side to side. PSYCH: Appropriate affect and mood. <Braulio Reed DO - Last Filed: 11/09/19 07:02> Initial Vital Signs Initial Vital Signs: Vital Signs Temperature 98.4 F 11/08/19 16:45 Pulse Rate 82 11/08/19 16:45 Respiratory Rate 16 11/08/19 16:45 Blood Pressure 158/87 H 11/08/19 16:45 Pulse Oximetry 97 11/08/19 16:45 Scores <JOHN Deshpande - Last Filed: 11/08/19 18:41> GCS Chuckie coma scale eye opening: Spontaneous Chuckie coma scale verbal response: Orientated Chuckie coma scale motor response: Obey commands [place] coma scale total score: 15 Course <JOHN Deshpande - Last Filed: 11/08/19 18:41> Course Course Narrative: 1800: Patient stating she feels better and like to go home. Patient seen eating pizza, no distress. Orders Ordered: Discontinued Medications Dexamethasone (Decadron) 10 mg IV NOW ONE Stop: 11/08/19 17:58 Last Admin: 11/08/19 18:03 Dose: 10 mg Documented by: CHAVO Diphenhydramine HCl (Benadryl) 25 mg IV NOW ONE Stop: 11/08/19 17:04 Last Admin: 11/08/19 17:10 Dose: 25 mg Documented by: JAQUELINE Metoclopramide HCl (Reglan) 10 mg IV NOW ONE Stop: 11/08/19 17:04 Last Admin: 11/08/19 17:10 Dose: 10 mg Documented by: JAQUELINE Vital Signs Vital signs: Vital Signs - 8 hr 11/08/19 16:45 11/08/19 18:23 11/08/19 18:30 Temperature 98.4 F 98.3 F Pulse Rate 82 92 H 82 Respiratory Rate 16 18 20 Blood Pressure 158/87 H 140/75 Blood Pressure [Left Arm] 143/90 H Pulse Oximetry 97 98 97 <Braulio Reed DO - Last Filed: 11/09/19 07:02> Orders Ordered: Discontinued Medications Dexamethasone (Decadron) 10 mg IV NOW ONE Stop: 11/08/19 17:58 Last Admin: 11/08/19 18:03 Dose: 10 mg Documented by: CHAVO Diphenhydramine HCl (Benadryl) 25 mg IV NOW ONE Stop: 11/08/19 17:04 Last Admin: 11/08/19 17:10 Dose: 25 mg Documented by: JAQUELINE Metoclopramide HCl (Reglan) 10 mg IV NOW ONE Stop: 11/08/19 17:04 Last Admin: 11/08/19 17:10 Dose: 10 mg Documented by: JAQUELINE Vital Signs Vital signs: Vital Signs - 8 hr 11/08/19 16:45 11/08/19 18:23 11/08/19 18:30 Temperature 98.4 F 98.3 F Pulse Rate 82 92 H 82 Respiratory Rate 16 18 20 Blood Pressure 158/87 H 140/75 Blood Pressure [Left Arm] 143/90 H Pulse Oximetry 97 98 97 MDM - Headache <JOHN Deshpande - Last Filed: 11/08/19 18:41> Medical Records Attestation: I reviewed the patient's medical records. Lab Data Attestation: I reviewed the patient's lab results. MDM Narrative Medical decision making narrative: 54-year-old female with a history of migraines presenting to the emergency department for postop migraine. Patient was given fluids, Zofran, Tylenol, and caffeine and postop. She continued to have headache, with to the ER for further evaluation. No CT indicated as low concern for intracranial etiology at this time as patients pain decreased after Reglan and Benadryl was administered, neuro exam intact, patient has a history of migraines and this is consistent with her prior migraines, no alarming signs or symptoms such as vomiting. Upon discussing p ossible CT with patient, patient states I do not want one and I don't think I need one. After re-evaluation patient reports improved pain, due to small amount of continued pain, patient was given dexamethasone to help with symptoms. She was counseled about the importance of follow-up with her primary care provider and/or discussion of referral to neurologist if she continues to have issues wit h frequent migraines. Return precautions given for new or worsening symptoms. Patient agreed to plan of care verbalized understanding. Discharge Plan Departure Patient Disposition: Home Clinical Impression: Migraine Qualifiers: Migraine type: without aura Status migrainosus presence: without status migrainosus Intractability: not intractable Qualified Code(s): G43.009 - Migraine without aura, not intractable, without status migrainosus Discharge Date/Time: 11/08/19 18:28 Instructions: DI for Migraine Activity Restrictions/Additional Instructions: Thank you for entrusting me with your care today. As discussed, we have given you Benadryl, Reglan, and dexamethasone for your migraine. I recommend taking Tylenol in another 4 hours if you continue to have pain. Please follow-up with your primary care provider for discussion and possible follow-up with a neurologist if you continue to have issues with migraines. Return emergency department immediately if you develop worsening symptoms such as severe pain, vision changes, gait changes, facial droop, limb weakness, chest pain, shortness of breath, or any other concerns. Prescriptions: No Action omeprazole 20 mg capsule,delayed release(DR/EC) 20 mg PO BID Qty: 60 RF: 1 oxycodone 5 mg capsule 5 mg PO Q8H PRN (Reason: pain) Qty: 10 RF: 0 atorvastatin 40 mg tablet 40 mg PO HS Qty: 90 RF: 2 duloxetine 60 mg capsule,delayed release(DR/EC) 60 mg PO DAILY Qty: 30 RF: 5 levothyroxine 112 mcg tablet 112 mcg PO QAM Qty: 30 RF: 5 meloxicam 7.5 mg tablet 7.5 mg PO DAILY Qty: 30 RF: 5 cyclobenzaprine 10 mg tablet 10 mg PO BEDTIME Qty: 30 RF: 5 paroxetine HCl [Paxil] 40 mg tablet 20 mg PO QAM Qty: 45 RF: 3 benzonatate 200 mg capsule 200 mg PO TID Qty: 60 RF: 0 trazodone 50 mg tablet 100 mg PO BEDTIME PRN (Reason: insomnia) Qty: 60 RF: 2 triamterene-hydrochlorothiazid 37.5-25 mg tablet 1 tab PO QDAY Qty: 30 RF: 5 acetaminophen 500 mg capsule 1,000 mg PO Q6H PRN (Reason: Muscle Pain) RF: 0 omeprazole 40 mg capsule,delayed release(DR/EC) 40 mg PO BID Qty: 60 RF: 6 Referrals: Abbey Patel MD [Primary Care Provider] - <Braulio Reed DO - Last Filed: 11/09/19 07:02> [facility] Dr Reed Co-Sign Statement: I was available for consultation during this patient's emergency department visit. This chart is signed by myself for administrative purposes only. I did not have direct contact with this patient during this visit. They were seen independently by the APC.
[2019-11-08] MEDS: METOCLOPRAMIDE 10 MG/2 ML INJ IV (17:10)
[2019-11-08] MEDS: diphenhydrAMINE 50 MG/ML VIAL 25 MG IV (17:10)
[2019-11-08] MEDS: DEXAMETHASONE 10 MG/ML VIAL IV (18:03)
[2019-11-08 18:23] VITALS: BP 143/90; PULSE 92; RESP 18; O2SAT 98
[2019-11-08 18:30] VITALS: BP 140/75; PULSE 82; RESP 20; TEMP 36.8; O2SAT 97
== END 2019-11-08 18:28 | disposition home or self-care (01) ==
PROVIDERS: Emergency Provider Nurse Practitioner; PCP Family Medicine
DX: G43.009 Migraine without aura, not intractable, without status migrainosus (principal)
CPT/HCPCS: 99283; J1100; J1200; J2765

== ENCOUNTER → 2019-11-22 07:49 | Outpatient (CLI) | payer OTHER, SELFPAY ==
--- NOTE | 2019-11-22 | DI.NM.S_ITS ---
PROCEDURE: [place] HIDA WITH CCK PHARMACEUTICAL: 5.5 mCi Tc-99m mebrofenin IV; 1.0 mcg CCK IV. INDICATIONS: Epigastric pain TECHNIQUE: Following intravenous administration of Tc-99m mebrofenin, sequential anterior abdominal images were obtained. To evaluate the contractile response of the gallbladder in response to Cholecystokinin (CCK), sincalide (0.02 ?g/kg) was administered by slow intravenous infusion approximately 60 minutes after the administration of the radiopharmaceutical. Sequential imaging was continued for 30 minutes after the start of CCK infusion. Gallbladder ejection fraction was calculated. COMPARISON: [place], [place], [place] HIDA WITH CCK, 11/10/2018, 14:15. FINDINGS: Biliary scan: There is normal tracer uptake and excretion by the liver. There is normal visualization of the intrahepatic ducts, common bile duct, and gallbladder. There is normal tracer transit into the duodenum. CCK stimulation: There is appropriate contractile response of the gallbladder to CCK infusion. The calculated gallbladder ejection fraction is 89%; normal values are above 35%. It has been shown that any patient abdominal pain after CCK administration is related to the rate of CCK injection, rather than to any underlying gallbladder disease (Clinical Nuclear Medicine 2012; 37: 63-70. Journal of Nuclear Medicine 2014; 55: 1-9). IMPRESSION: 1. No evidence of cholecystitis. Dictated by: Hoda Da Silva M.D. on 11/22/2019 at 11:17 Approved by: Hoda Da Silva M.D. on 11/22/2019 at 11:18
== END ==
PROVIDERS: PCP Family Medicine; Referring Provider Surgery; Visit Provider Surgery
DX: R10.13 Epigastric pain (principal)
CPT/HCPCS: 78227; A9537; J2805

== ENCOUNTER 2019-11-28 20:22 | Emergency (ER) | payer OTHER, SELFPAY ==
[2019-11-28 20:21] VITALS: BP 128/76; PULSE 73; RESP 16; TEMP 36.3; O2SAT 100; BMI 37.1
[2019-11-28 20:48] LABS: Add Manual Diff / Slide Review NO; Basophils Absolute Auto 200 /uL (0-100); Basophils Percent Auto 1.6 % (0-2); Eosinophils Absolute Auto 300 /uL (0-450); Eosinophils Percent Auto 2.4 % (2-4); Lymphocytes Absolute Auto 4900 /uL (1100-4500); Lymphocytes Percent Auto 42.3 % (25-40); Mean Corpuscular HGB Conc 34.2 % (30-36); Mean Corpuscular Volume 93.6 fL (80-100); Monocytes Absolute Auto 600 /uL (0-900); Monocytes Percent Auto 4.8 % (3-14); Neutrophils Absolute Auto 5700 /uL (1500-7000); Neutrophils Percent Auto 48.9 % (50-75); Platelet Count 341 X10^3/uL (150-400); Red Blood Cell Count 4.38 X10^6/uL (4.0-5.2); Red Cell Distribution Width 13.3 % (11.6-14.8); White Blood Cell Count 11.7 X10^3/uL (4.5-11.0)
[2019-11-28 20:51] LABS: INR 0.9 (0.9-1.3)
[2019-11-28 20:54] LABS: PTT Partial Thromboplastin Tim 31 SECONDS (26.4-36.2)
[2019-11-28 20:55] LABS: Alanine Aminotransferase 20 IU/L (<35); Albumin 4.5 g/dL (3.5-5.0); Albumin Globulin Ratio 1.5 (1.0-2.8); Alkaline Phosphatase 75 U/L (38-126); Aspartate Aminotransferase 24 IU/L (14-36); BUN Creatinine Ratio 27.7 (6-22); Bilirubin Total 0.4 mg/dL (0.2-1.3); Blood Urea Nitrogen 23 mg/dL (7-17); Calcium 9.9 mg/dL (8.4-10.2); Carbon Dioxide 25 mmol/L (22-32); Chloride 104 mmol/L (98-107); Estimated Glomerular Filt Rate > 60.0 mL/min (>60); Globulin 3.1 g/dL (1.7-4.1); Glucose 94 mg/dL (70-100); HEMOLYSIS < 15 (0-50); Lipase 263 U/L (23-300); Potassium 3.9 mmol/L (3.4-5.1); Sodium 138 mmol/L (137-145); Total Protein 7.6 g/dL (6.3-8.2)
[2019-11-28 21:16] LABS: Bacteria Urine None Seen
[2019-11-28 21:25] LABS: Culture Indicated Urine Cult Not Indicated; RBC Urine 1-5/HPF (0-5/HPF); Squamous Epithelial Cell Urine 1-5 /HPF (0-5/HPF); WBC Urine 0-1/HPF (0-5/HPF)
[2019-11-28] MEDS: ONDANSETRON 4 MG/2 ML INJ IV (21:36)
--- NOTE | 2019-11-28 21:41 | ED_ITS ---
HPI - Abdominal Pain General Chief Complaint: Abdominal Pain Stated Complaint: abd pain Time Seen by Provider: 11/28/19 21:34 Source: EMS Mode of arrival: EMS Limitations: no limitations History of Present Illness HPI narrative: The patient presents with severe abdominal pain. She had pain issue start in the right upper quadrant September 2019. She previously had a HIDA scan last year that was benign. Outside studies of abdominal CT and ultrasound reveal no evidence of cholecystitis, I do not have the slightest but this is noted from reading medical records. HIDA scan was recently done this facility, revealing no evidence of cholecystitis she has ongoing right upper quadrant pain, she now arrives by EMS with pain radiating to her back. She has nausea without emesis. She has a history of PUD, she required emergency surgery about 10 years ago for a perforated ulcer. She takes omeprazole 20 mg daily. She has no URI symptoms, no cough, no fever chills. She has no difficulty breathing. In addition to ultrasound and CT obtained at an outside hospital prior to local treatment, an EGD was diet. The doctor noted gastritis as well as hiatal hernia. Related Data Home Medications Medication Instructions Recorded Confirmed acetaminophen 500 mg capsule 1,000 mg PO Q6H PRN 11/03/19 11/08/19 Previous Rx's Medication Instructions Recorded omeprazole 20 mg capsule,delayed 20 mg PO BID #60 cap 01/13/19 release atorvastatin 40 mg tablet 40 mg PO HS #90 tab 04/18/19 cyclobenzaprine 10 mg tablet 10 mg PO BEDTIME #30 tab 08/15/19 duloxetine 60 mg capsule,delayed 60 mg PO DAILY #30 cap 08/15/19 release levothyroxine 112 mcg tablet 112 mcg PO QAM #30 tab 08/15/19 meloxicam 7.5 mg tablet 7.5 mg PO DAILY #30 tab 08/15/19 paroxetine HCl 40 mg tablet 20 mg PO QAM #45 tab 08/24/19 benzonatate 200 mg capsule 200 mg PO TID #60 cap 08/31/19 trazodone 50 mg tablet 100 mg PO BEDTIME PRN #60 tab 09/20/19 triamterene 37.5 1 tab PO QDAY #30 tab 10/03/19 mg-hydrochlorothiazide 25 mg tablet oxycodone 5 mg capsule 5 mg PO Q8H PRN #10 cap 10/18/19 omeprazole 40 mg PO BID #60 cap 11/08/19 metoclopramide HCl 10 mg tablet 10 mg PO Q6H PRN #20 tab 11/11/19 oxycodone-acetaminophen 5 mg-325 1 tab PO Q8H PRN #20 tab 11/18/19 mg tablet Allergies Allergy/AdvReac Type Severity Reaction Status Date / Time felodipine [FELODIPINE] Allergy Severe EDEMA IN Verified 11/28/19 20:29 THE LOWER LEGS pineapple [PINEAPPLE] Allergy Severe TONGUE Verified 11/28/19 20:29 SWELLING strawberry [STRAWBERRY] Allergy Severe ITCHING, Verified 11/28/19 20:29 WELTS ON ARMS Sulfa (Sulfonamide Allergy Severe ANAPHYLAXIS Verified 11/28/19 20:29 Antibiotics) [SULFA (SULFONAMIDE ANTIBIOTICS)] tramadol [TRAMADOL] Allergy Severe SWELLING Verified 11/28/19 20:29 IN THE LEGS adhesive tape Allergy Intermediate red, Verified 11/28/19 20:29 blister, itching gabapentin [GABAPENTIN] Allergy Unknown leg Verified 11/28/19 20:29 swelling NSAIDS (Non-Steroidal Allergy Unknown irritates Verified 11/28/19 20:29 Anti-Inflamma GI tract [NSAIDS (NON-STEROIDAL ANTI-INFLAMMA] sucralfate AdvReac Mild itching Verified 11/28/19 20:29 Review of Systems Review of Systems ROS Unobtainable: All systems reviewed & are unremarkable except as noted in HPI and below Constitutional Constitutional: Denies chills, Denies fever(s), Denies lethargy and Denies weakness Eyes Comments: No visual complaints. ENT Ears, Nose, Mouth, and Throat: Denies vertigo and Denies dizziness Comments: No headache, sinus pressure, rhinorrhea or sore throat Cardiovascular Cardiovascular: Denies chest pain, Denies palpitations, Denies dyspnea and Denies orthopnea Respiratory Respiratory: Denies cough, Denies dyspnea and Denies wheezing Gastrointestinal Gastrointestinal: Reports as per HPI, Reports abdominal pain and Reports nausea Genitourinary Comments: No urinary complaints. Musculoskeletal Comments: Mid back pain associated with the abdominal pain, see HPI. Integumentary/Breasts Skin/Breast: Denies pruritus, Denies erythema, Denies rash and Denies wounds Neurologic Neurologic: Denies confusion, Denies vertigo, Denies dizziness and Denies weakness Psychiatric Psychiatric: Reports anxiety and Denies confusion Endocrine Endocrine: Denies palpitations Allergic/Immunologic Allergic/Immunologic: Denies wheezing Patient History Medical History Anemia (Chronic) Anxiety (Chronic) Chicken pox (Resolved 1978) Depression (Chronic) Fibromyalgia (Chronic) Foot pain (Chronic 2012) Gastric ulcer (Resolved 01/24/10) Hypertension (Chronic) Hypothyroidism (Chronic) Irregular periods/menstrual cycles (Chronic) Mumps (Resolved 1969) Osteoarthritis (Chronic) Recurrent sinusitis (Chronic) Surgical History Anesthesia (Resolved) History of incisional hernia repair (Resolved 01/17/13) History of surgery (Resolved 12/2015) Hx of abdominal surgery (Resolved 01/24/10) Status post appendectomy (Resolved 1977) Status post delivery (Resolved 08/28/00) Status post right foot surgery (Resolved 06/19/15) Family History Grandmother Hypertension Stroke Mother Age: 75 Hypertension Mental health problem Stroke Sister Age: 47 Hypertension High cholesterol Mental health problem Father Traffic accident Grandfather Swallowed foreign body Grandfather No problems noted. Grandmother No problems noted. Sister No problems noted. 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 seatbelt use: always helmet use: Yes water heater temp set < 120 deg: Yes working smoke detector in home: Yes fire extinguisher in home: Yes carbon monox detector in home: Yes firearms in home: No Smoking Status: Current every day smoker quit status: quit date established during the past year weight has: increased > 10 lbs well-balanced diet: daily or most days daily servings fruits/ve-4 caffeine: Yes eating out: 1-3 times/week Smoking Status: Current every day smoker alcohol intake frequency: holidays/special occasions only Substance Use Type: does not use Exam Initial Vital Signs Initial Vital Signs: Vital Signs Temperature 97.3 F L 11/28/19 20:21 Pulse Rate 73 07/06/20 20:21 Respiratory Rate 16 11/28/19 20:21 Blood Pressure 128/76 11/28/19 20:21 Pulse Oximetry 100 11/28/19 20:21 Const General: cooperative, well developed and acute distress Nutritional Appearance: well nourished [facility] Mouth: oral mucosae normal Throat: posterior oropharynx normal Eyes General: appearance normal, both eyes and all related structures Eyelids: eyelids normal Conjunctivae: conjunctivae normal Sclera: sclerae normal Pupils: PERRL EOM: EOM intact bilaterally Neck Neck: No JVD Chest Chest: normal palpation of entire chest wall Resp Effort & Inspection: normal respiratory effort and able to speak in complete sentences Auscultation: clear to auscultation bilaterally, no rales, no rhonchi and no wh eezes Cardio Rate: regular rate Rhythm: regular rhythm Heart Sounds: no click, no gallops, no murmurs and no rubs Pulses: normal peripheral pulses GI Other: RUQ tenderness with guarding, no rebound. No distention. Normal bowel sounds. No masses. Back/Spine/Pelvis Other: Right mid back tenderness. No CVAT Skin General: no rashes or lesions noted, No jaundice and No petechiae Neuro General: patient alert, patient oriented x3, gait normal and no focal motor deficits Speech: speech normal Extrem General: full ROM, no pedal edema and no calf tenderness Course Course Course Narrative: The patient was given Dilaudid, as well as Protonix. I think the use of Protonix has been the significant reason for improvement. We di scussed her recent EGD with evidence of hiatal hernia and gastritis. She has previously been prescribed Protonix, she did not tolerate the medication well. I recommended she continue taking omeprazole and stop smoking as soon as possible. Orders Ordered: ED Orders 11/28/19 20:35 Complete Blood Count AUTO DIFF Stat Comprehensive Metabolic Panel Stat Lipase Stat Partial Thromboplastin Time Stat Prothrombin Time INR Stat 11/28/19 21:09 Urine Microscopic Stat 11/29/19 00:02 CT abdomen pelvis w con Stat Discontinued Medications Hydromorphone HCl (Dilaudid) 1 mg IV NOW ONE Stop: 11/28/19 21:41 Last Admin: 11/28/19 22:01 Dose: 1 mg Documented by: ADRIÁN Hydromorphone HCl (Dilaudid) 1 mg IV NOW ONE Stop: 11/29/19 00:03 Last Admin: 11/29/19 00:21 Dose: 1 mg Documented by: ADRIÁN Ondansetron HCl (Zofran) 4 mg IV NOW ONE Stop: 11/28/19 20:26 Last Admin: 11/28/19 21:36 Dose: 4 mg Documented by: ADRIÁN Pantoprazole Sodium (Protonix) 40 mg IV NOW ONE Stop: 11/28/19 21:41 Last Admin: 11/28/19 22:00 Dose: 40 mg Documented by: ADRIÁN Vital Signs Vital signs: Vital Signs - 8 hr 11/28/19 20:21 11/28/19 23:51 11/29/19 00:00 Temperature 97.3 F L Pulse Rate 73 109 H 104 H Respiratory Rate 16 Blood Pressure 128/76 156/102 H Pulse Oximetry 100 96 97 11/29/19 00:01 11/29/19 00:36 11/29/19 00:52 Temperature Pulse Rate 104 H 114 H 103 H Respiratory Rate Blood Pressure 151/101 H 140/79 Pulse Oximetry 93 93 91 11/29/19 01:00 11/29/19 01:30 Temperature Pulse Rate 102 H 102 H Respiratory Rate Blood Pressure Pulse Oximetry 94 95 MDM - Abdominal Pain Lab Data Result diagrams: 11/28/19 20:35 11/28/19 20:35 Labs: Lab Results 11/28/19 11/28/19 11/28/19 Range/Units 20:35 20:35 20:35 WBC 11.7 H (4.5-11.0) X10^3/uL RBC 4.38 (4.0-5.2) X10^6/uL Hgb 14.0 (12.0-16.0) g/dL Hct 41.0 (36-46) % MCV 93.6 (80-100) fL MCH 32.0 (26-34) PG MCHC 34.2 (30-36) % RDW 13.3 (11.6-14.8) % Plt Count 341 (150-400) X10^3/uL Neut % (Auto) 48.9 L (50-75) % Lymph % (Auto) 42.3 H (25-40) % [place] % (Auto) 4.8 (3-14) % Eos % (Auto) 2.4 (2-4) % Baso % (Auto) 1.6 (0-2) % Neut # (Auto) 5700 (3225-8102) /uL Lymph # (Auto) 4900 H (2289-2594) /uL [place] # (Auto) 600 (0-900) /uL Eos # (Auto) 300 (0-450) /uL Baso # (Auto) 200 H (0-100) /uL PT 10.0 L (10.1-12.7) SECONDS INR 0.9 (0.9-1.3) APTT 31 (26.4-36.2) SECONDS Sodium 138 (137-145) mmol/L Potassium 3.9 (3.4-5.1) mmol/L Chloride 104 (98-107) mmol/L Carbon Dioxide 25 (22-32) mmol/L BUN 23 H (7-17) mg/dL Creatinine 0.83 (0.52-1.04) mg/dL Estimated GFR > 60.0 (>60) mL/min BUN/Creatinine Ratio 27.7 H (6-22) Glucose 94 (70-100) mg/dL Calcium 9.9 (8.4-10.2) mg/dL Total Bilirubin 0.4 (0.2-1.3) mg/dL AST 24 (14-36) IU/L ALT 20 (<35) IU/L Alkaline Phosphatase 75 (38-126) U/L Total Protein 7.6 (6.3-8.2) g/dL Albumin 4.5 (3.5-5.0) g/dL Globulin 3.1 (1.7-4.1) g/dL Albumin/Globulin Ratio 1.5 (1.0-2.8) Lipase 263 (23-300) U/L Urine RBC (0-5/HPF) Urine WBC (0-5/HPF) Ur Squamous Epith Cells (0-5/HPF) Urine Bacteria (None) Ur Culture Indicated? 11/28/19 Range/Units 21:09 WBC (4.5-11.0) X10^3/uL RBC (4.0-5.2) X10^6/uL Hgb (12.0-16.0) g/dL Hct (36-46) % MCV (80-100) fL MCH (26-34) PG MCHC (30-36) % RDW (11.6-14.8) % Plt Count (150-400) X10^3/uL Neut % (Auto) (50-75) % Lymph % (Auto) (25-40) % [place] % (Auto) (3-14) % Eos % (Auto) (2-4) % Baso % (Auto) (0-2) % Neut # (Auto) (9554-2416) /uL Lymph # (Auto) (6454-5415) /uL [place] # (Auto) (0-900) /uL Eos # (Auto) (0-450) /uL Baso # (Auto) (0-100) /uL PT (10.1-12.7) SECONDS INR (0.9-1.3) APTT (26.4-36.2) SECONDS Sodium (137-145) mmol/L Potassium (3.4-5.1) mmol/L Chloride (98-107) mmol/L Carbon Dioxide (22-32) mmol/L BUN (7-17) mg/dL Creatinine (0.52-1.04) mg/dL Estimated GFR (>60) mL/min BUN/Creatinine Ratio (6-22) Glucose (70-100) mg/dL Calcium (8.4-10.2) mg/dL Total Bilirubin (0.2-1.3) mg/dL AST (14-36) IU/L ALT (<35) IU/L Alkaline Phosphatase (38-126) U/L Total Protein (6.3-8.2) g/dL Albumin (3.5-5.0) g/dL Globulin (1.7-4.1) g/dL Albumin/Globulin Ratio (1.0-2.8) Lipase (23-300) U/L Urine RBC 1-5/hpf (0-5/HPF) Urine WBC 0-1/hpf (0-5/HPF) Ur Squamous Epith Cells 1-5 /hpf (0-5/HPF) Urine Bacteria None seen (None) Ur Culture Indicated? Cult not indicated Point of care testing: Urine Dip Bedside Urine Glucose Negative Bedside Urine Bilirubin - Negative Bedside Urine Ketone - Negative Urine Specific Hallie 1.010 Bedside Urine Occult Blood + Bedside Urine pH 6.0 Bedside Urine Protein - Negative Bedside Urine Urobilinogen - Negative Bedside Urine Nitrite - Negative Bedside Urine Leukocytes - Negative Esterase Imaging Data CT scan - abdomen/pelvis: Radiologist's Impression: No acute intra-abdominal or pelvic findings. No bowel obstruction. No renal disease. Discharge Plan Departure Patient Disposition: Home Clinical Impression: Right upper quadrant abdominal pain Gastritis Qualifiers: Gastritis type: unspecified gastritis Chronicity: chronic Gastritis bleeding: without bleeding Qualified Code(s): K29.50 - Unspecified chronic gastritis without bleeding Instructions: DI for Gastritis Activity Restrictions/Additional Instructions: There is no evidence of gallbladder disease based upon recent evaluations. Abdominal CT showed no issues with your liver or gallbladder. There is no suggestion of a penetrating ulcer Based on your recent endoscopy showing gastritis, I suspect gastritis is the source of your discomfort. Continue omeprazole. I highly recommend you quit smoking, as we discussed. Follow-up with your surgery appointment, return the ER if symptoms escalate. Prescriptions: No Action omeprazole 20 mg capsule,delayed release(DR/EC) 20 mg PO BID Qty: 60 RF: 1 oxycodone 5 mg capsule 5 mg PO Q8H PRN (Reason: pain) Qty: 10 RF: 0 atorvastatin 40 mg tablet 40 mg PO HS Qty: 90 RF: 2 duloxetine 60 mg capsule,delayed release(DR/EC) 60 mg PO DAILY Qty: 30 RF: 5 levothyroxine 112 mcg tablet 112 mcg PO QAM Qty: 30 RF: 5 meloxicam 7.5 mg tablet 7.5 mg PO DAILY Qty: 30 RF: 5 cyclobenzaprine 10 mg tablet 10 mg PO BEDTIME Qty: 30 RF: 5 paroxetine HCl [Paxil] 40 mg tablet 20 mg PO QAM Qty: 45 RF: 3 benzonatate 200 mg capsule 200 mg PO TID Qty: 60 RF: 0 trazodone 50 mg tablet 100 mg PO BEDTIME PRN (Reason: insomnia) Qty: 60 RF: 2 triamterene-hydrochlorothiazid 37.5-25 mg tablet 1 tab PO QDAY Qty: 30 RF: 5 metoclopramide HCl [Reglan] 10 mg tablet 10 mg PO Q6H PRN (Reason: nausea and vomiting) Qty: 20 RF: 0 oxycodone-acetaminophen 5-325 mg tablet 1 tab PO Q8H PRN (Reason: pain) Qty: 20 RF: 0 acetaminophen 500 mg capsule 1,000 mg PO Q6H PRN (Reason: Muscle Pain) RF: 0 omeprazole 40 mg capsule,delayed release(DR/EC) 40 mg PO BID Qty: 60 RF: 6 Referrals: Abbey Patel MD [Primary Care Provider] -
[2019-11-28] MEDS: PANTOPRAZOLE 40 MG VIAL IV (22:00)
[2019-11-28] MEDS: HYDROMORPHONE 1 MG INJ IV (22:01)
[2019-11-28 23:51] VITALS: BP 156/102; PULSE 109; O2SAT 96
[2019-11-29] VITALS (7 sets, daily range): BP systolic 140–151; BP diastolic 79–101; PULSE 102–114; RESP 18; O2SAT 91–97
--- NOTE | 2019-11-29 00:02 | DI.CT.S_ITS ---
PROCEDURE: CT ABDOMEN PELVIS W CON INDICATIONS: Right upper quadrant pain TECHNIQUE: After the administration of intravenous contrast, 5 mm thick sections acquired from the diaphragm to the symphysis. 5 mm coronal and sagittal reformats were acquired. For radiation dose reduction, the following was used: automated exposure control, adjustment of mA and/or kV according to patient size. COMPARISON: [facility], CT, CT ABDOMEN PELVIS WITH CONTRAST, 10/24/2018, 22:07. FINDINGS: Image quality: Excellent. ABDOMEN: Lung bases: Lung bases are clear. Heart size is normal. Solid organs: Liver is normal in size and enhancement. Gallbladder appears normal. Biliary system is non dilated. Pancreas enhances normally. Spleen is normal in size and enhancement. No adrenal nodules. Kidneys demonstrate normal size and enhancement, without hydronephrosis. Peritoneum and bowel: Bowel loops demonstrate normal wall thickness and caliber. No free fluid or air. Nodes and vessels: No retroperitoneal or mesenteric adenopathy by size criteria. Aorta and inferior vena cava are normal in size. Miscellaneous: No ventral hernias. PELVIS: Genitourinary: Bladder wall thickness is normal. Miscellaneous: No inguinal hernias or adenopathy. Bones: No suspicious bony lesions. No vertebral body compression fractures. IMPRESSION: No source of current abdominal pain is found. No sign of underlying infection or neoplasm. Dictated by: Vasu Garcia M.D. on 11/29/2019 at 9:19 Approved by: Vasu Garcia M.D. on 11/29/2019 at 9:20
[2019-11-29] MEDS: HYDROMORPHONE 1 MG INJ IV (00:21)
== END 2019-11-29 02:40 | disposition home or self-care (01) ==
PROVIDERS: Emergency Provider Emergency Medicine; PCP Family Medicine
DX: R10.11 Right upper quadrant pain (principal); K29.50 Unspecified chronic gastritis without bleeding
CPT/HCPCS: 74177; 80053; 81003; 81015; 83690; 85025; 85610; 85730; 96374; 96375; 96376; 99284; C9113; J1170; J2405; Q9967

== ENCOUNTER → 2020-03-07 12:40 | Outpatient (CLI) | payer OTHER, SELFPAY ==
--- NOTE | 2020-03-07 12:41 | DI.RAD.S_ITS ---
PROCEDURE: XR CHEST 2V INDICATIONS: persistent chest pain after fall TECHNIQUE: 2 views of the chest were acquired. COMPARISON: None. FINDINGS: Surgical changes and devices: None. Lungs and pleura: Lungs are clear. No pleural effusions or pneumothorax. Mediastinum: Mediastinal contours are normal. Heart size is normal. Bones and chest wall: No suspicious bony abnormalities. Soft tissues appear unremarkable. IMPRESSION: Chest without acute cardiopulmonary abnormalities. No displaced rib fractures visualized. Dictated by: Fahad Nash M.D. on 03/07/2020 at 16:54 Approved by: Fahad Nash M.D. on 03/07/2020 at 16:54
== END ==
PROVIDERS: PCP Family Medicine; Referring Provider Family Medicine; Visit Provider Family Medicine
DX: R07.89 Other chest pain (principal)
CPT/HCPCS: 71046

== ENCOUNTER → 2020-05-29 14:36 | Outpatient (CLI) | payer OTHER, SELFPAY ==
[2020-05-29 15:02] LABS: Appearance Urine UA SL CLOUDY; Bilirubin Urine UA NEGATIVE (NEGATIVE); Color Urine UA YELLOW; Glucose Urine UA NEGATIVE (Negative); Ketones Urine UA NEGATIVE (NEGATIVE); Leukocyte Esterase Urine UA 2+ (NEGATIVE); Nitrite Urine UA NEGATIVE (Negative); Occult Blood Urine UA 2+ (Negative); Protein Urine UA TRACE (Negative); Urobilinogen Urine UA 0.2 E.U./dL (0.2)
[2020-05-29 15:06] LABS: pH Urine UA 6.5 (4.5-8.0)
[2020-05-29 15:11] LABS: Bacteria Urine Many (>30); Culture Indicated Urine Cult Not Indicated; RBC Urine 1-5/HPF (0-5/HPF); Squamous Epithelial Cell Urine 10-30 /HPF (0-5/HPF); WBC Urine 10-30/HPF (0-5/HPF)
== END ==
PROVIDERS: PCP Family Medicine; Referring Provider Family Medicine; Visit Provider Family Medicine
DX: R30.0 Dysuria (principal)
CPT/HCPCS: 81001; 87086

== ENCOUNTER → 2020-10-09 10:25 | Outpatient (CLI) | payer OTHER, SELFPAY ==
--- NOTE | 2020-10-09 10:28 | DI.RAD.S_ITS ---
PROCEDURE: XR FOOT RT MIN 3V INDICATIONS: FOOT PAIN TECHNIQUE: 3 views of the foot were acquired. COMPARISON: [facility], CR, FOOT 3V RIGHT, 02/07/2014, 13:23. [facility], CR, XR FOOT 3VW RT, 03/13/2016, 17:01. [facility], CR, FOOT 3V RIGHT, 10/05/2015, 15:37. [facility], CR, XR FOOT 3+ VIEWS RIGHT, 09/24/2017, 14:16. [facility], CR, FOOT 3V RIGHT, 04/04/2016, 15:49. FINDINGS: Bones: No fractures or dislocations. Bunionectomy. Arthrodesis of the 1st and 2nd metatarsophalangeal joints. No suspicious bony lesions. There is moderate degenerative joint disease at the 3rd, 4th and 5th tarsometatarsal joints, 1st metatarsal phalangeal joint and multiple interphalangeal joints. Soft tissues: No tibiotalar joint effusion. Achilles tendon appears normal. Soft tissue swelling. IMPRESSION: 1. Stable postsurgical changes related to bunionectomy and arthrodesis of the 1st and 2nd metatarsophalangeal joints. 2. Moderate degenerative joint disease. 3. Soft tissue swelling. Dictated by: Félix Castano M.D. on 10/09/2020 at 12:01 Approved by: Félix Castano M.D. on 10/09/2020 at 12:19
--- NOTE | 2020-10-09 10:28 | DI.US.S_ITS ---
PROCEDURE: US THYROID INDICATIONS: NECK SWELLING TECHNIQUE: Real-time scanning was performed of the thyroid gland, with image documentation. COMPARISON: None. FINDINGS: Right: Thyroid lobe measures 7.1 x 4.2 x 2.8 cm, and is diffusely heterogeneous in echotexture. Left: Thyroid lobe measures 4.9 x 2.6 x 2.0 cm, and is diffusely heterogeneous in echotexture. Isthmus: 7.6 mm thick. IMPRESSION: Diffusely enlarged and heterogeneous thyroid bilaterally. No focal nodules identified. Dictated by: Sai Atwood Jonathan Interpreted: Adarsh Cohen MD on 10/09/2020 at 17:15 Transcribed by: TERRY on 10/09/2020 at 17:16 Approved by: Adarsh Cohen M.D. on 10/09/2020 at 17:28
[2020-10-09 13:10] LABS: Free T3, Triiodothyronine Free 3.74 pg/mL (2.77-5.27); Free T4, Direct Thyroxine 1.15 ng/dL (0.78-2.19)
== END ==
PROVIDERS: PCP Family Medicine; Referring Provider Family Medicine; Visit Provider Family Medicine
DX: R59.0 Localized enlarged lymph nodes (principal); E04.9 Nontoxic goiter, unspecified; E03.9 Hypothyroidism, unspecified; M79.671 Pain in right foot; M19.071 Primary osteoarthritis, right ankle and foot; M79.89 Other specified soft tissue disorders; Z98.890 Other specified postprocedural states
CPT/HCPCS: 36415; 73630; 76536; 84439; 84443; 84481

== ENCOUNTER → 2020-10-23 09:19 | Outpatient (CLI) | payer OTHER, SELFPAY ==
--- NOTE | 2020-10-23 09:20 | DI.RAD.S_ITS ---
PROCEDURE: XR KNEE LT 3V INDICATIONS: left patellar pain TECHNIQUE: 3 views of the knee were acquired. COMPARISON: None. FINDINGS: Bones: No fractures or dislocations. No suspicious bony lesions. Mild tricompartmental periarticular osteophyte formation. Soft tissues: No joint effusion. No suspicious soft tissue calcifications. IMPRESSION: Osteoarthritis. No acute fracture. No osseous lesion. If symptoms and/or clinical suspicion for pathology persist, further assessment with repeat, or advanced imaging (e.g., CT, MRI, or bone scan) may be helpful for further assessment. Dictated by: Hoda Da Silva M.D. on 10/23/2020 at 16:22 Approved by: Hoda Da Silva M.D. on 10/23/2020 at 16:23
== END ==
PROVIDERS: PCP Family Medicine; Referring Provider Family Medicine; Visit Provider Family Medicine
DX: M17.12 Unilateral primary osteoarthritis, left knee (principal)
CPT/HCPCS: 73562

== ENCOUNTER → 2020-11-27 11:28 | Outpatient (CLI) | payer OTHER, SELFPAY ==
--- NOTE | 2020-11-27 | DI.MG.S_ITS ---
BILATERAL DIGITAL SCREENING MAMMOGRAM 3D/2D WITH CAD: 11/27/2020 CLINICAL: Routine screening. Family history of breast cancer. Comparison is made to exams dated: 10/22/2019 mammogram, 10/10/2017 mammogram - [facility], and 01/31/2014 mammogram - [facility]. There are scattered fibroglandular elements in both breasts. Current study was also evaluated with a Computer Aided Detection (CAD) system. No significant masses, calcifications, or other findings are seen in either breast. There has been no significant interval change. IMPRESSION: NEGATIVE There is no mammographic evidence of malignancy. A 1 year screening mammogram is recommended. This exam was interpreted at Station ID: [id number]. NOTE: For mammograms, a report in lay terms will be sent to the patient. Approximately 15% of breast malignancies will not be visualized mammographically. In the management of a palpable breast mass, a negative mammogram must not discourage biopsy of a clinically suspicious lesion. Electronically Signed By: Epi Salinas acr/saroj:11/27/2020 11:58:35 letter sent: Normal Exam ACR BI-RADS Category 1: Negative [id number]
[2020-11-27 14:17] LABS: Alanine Aminotransferase 30 IU/L (<35); Albumin 4.4 g/dL (3.5-5.0); Albumin Globulin Ratio 1.5 (1.0-2.8); Alkaline Phosphatase 78 U/L (38-126); Aspartate Aminotransferase 34 IU/L (14-36); BUN Creatinine Ratio 33.3 (6-22); Bilirubin Total 0.3 mg/dL (0.2-1.3); Blood Urea Nitrogen 25 mg/dL (7-17); Calcium 9.8 mg/dL (8.4-10.2); Carbon Dioxide 27 mmol/L (22-32); Chloride 104 mmol/L (98-107); Cholesterol 210 mg/dL (140-199); Estimated Glomerular Filt Rate > 60.0 mL/min (>60); Globulin 2.9 g/dL (1.7-4.1); Glucose 113 mg/dL (70-100); HDL Cholesterol 62 mg/dL (40-60); HEMOLYSIS < 15 (0-50); LDL Cholesterol Calculated 70 mg/dL (<100); Potassium 4.7 mmol/L (3.4-5.1); Sodium 138 mmol/L (137-145); Total Protein 7.3 g/dL (6.3-8.2); Triglycerides 388 mg/dL (35-150)
[2020-11-27 16:05] LABS: Creatinine Urine Random 34.9 mg/dL
[2020-11-27 16:09] LABS: Microalbumi Creatinin Ratio Ur 37.2 ug/mg CR (<30); Microalbumin Urine Random 1.3 mg/dL (0-1.6)
== END ==
PROVIDERS: PCP Family Medicine; Referring Provider Family Medicine; Visit Provider Family Medicine
DX: Z12.31 Encounter for screening mammogram for malignant neoplasm of breast (principal); Z80.3 Family history of malignant neoplasm of breast; I10 Essential (primary) hypertension
CPT/HCPCS: 77063; 77067; 80053; 80061; 82043; 82570

== ENCOUNTER → 2021-01-18 09:20 | Outpatient (CLI) | payer OTHER, SELFPAY ==
--- NOTE | 2021-01-18 09:21 | DI.RAD.S_ITS ---
PROCEDURE: XR FINGER RT MIN 2V INDICATIONS: pain and swelling TECHNIQUE: AP hand, 2 views of the 1st finger(s) acquired. COMPARISON: None. FINDINGS: Bones: No fractures or dislocations. Mild osteoarthritic changes are seen in 1st MCP and interphalangeal joints. No gross bony erosive changes. No suspicious bony lesions. Soft tissues: No suspicious soft tissue calcifications. IMPRESSION: No right thumb fracture or dislocation. Mild right thumb osteoarthritis. Dictated by: Adarsh Cohen M.D. on 01/18/2021 at 10:48 Approved by: Adarsh Cohen M.D. on 01/18/2021 at 10:56
== END ==
PROVIDERS: PCP Family Medicine; Referring Provider Family Medicine; Visit Provider Family Medicine
DX: M79.646 Pain in unspecified finger(s) (principal); M19.041 Primary osteoarthritis, right hand; M79.89 Other specified soft tissue disorders
CPT/HCPCS: 73140

== ENCOUNTER 2021-05-09 11:39 | Emergency (ER) | payer OTHER, SELFPAY ==
[2021-05-09 12:02] VITALS: BP 180/110; PULSE 108; RESP 18; TEMP 36.2; O2SAT 99; BMI 37.9
--- NOTE | 2021-05-09 15:47 | ED_ITS ---
HPI - Back Pain/Injury <Alton Jett PA-C - Last Filed: 05/09/21 19:36> General Chief Complaint: Back Pain/Injury Stated Complaint: Lower Back/Upper Thigh Pain Time Seen by Provider: 05/09/21 15:33 Source: patient History of Present Illness HPI Narrative: Patient is a 56-year-old female presenting to the emergency department today for evaluation of back pain that began 5 days ago. Patient states that she has experienced pain throughout her sacrum that has wrapped around to her size that has been gradually worsening. Additionally, patient states that the pain in her thighs worsens when ?sitting down on the toilet?. Patient denies known injury, trauma,or recent falls. She denies fever, chills, chest pain, cough, shortness of breath, nausea, vomiting, diarrhea, abdominal pain, numbness and tingling throughout the bilateral lower extremities, urinary incontinence, fecal incontinence. No other concerns were voiced at this time. Patient states she has experienced symptoms similar to this past. Related Data Home Medications Medication Instructions Recorded Confirmed acetaminophen 500 mg capsule 1,000 mg PO Q6H PRN 11/03/19 01/18/21 Previous Rx's Medication Instructions Recorded metoclopramide HCl 10 mg tablet 10 mg PO Q6H PRN #20 tab 11/11/19 (Reglan) nystatin 100,000 unit/gram topical 1 applic TOPICAL QID #60 g 04/24/20 powder nitrofurantoin macrocrystal 100 mg 100 mg PO BID #10 cap 05/29/20 capsule acyclovir 400 mg tablet 400 mg PO TID #21 tab 06/21/20 atorvastatin 40 mg tablet See Rx Instructions .ROUTE 11/19/20 .COMPLEX #90 tab oxycodone 5 mg tablet 5 mg PO BID PRN #10 tab 01/18/21 levothyroxine 112 mcg tablet See Rx Instructions .ROUTE 01/30/21 .COMPLEX #30 tab meloxicam 7.5 mg tablet See Rx Instructions .ROUTE 01/30/21 .COMPLEX #30 tab omeprazole 20 mg capsule,delayed See Rx Instructions .ROUTE 01/30/21 release .COMPLEX #60 cap duloxetine 60 mg capsule,delayed See Rx Instructions .ROUTE 02/18/21 release .COMPLEX #90 cap paroxetine HCl 40 mg tablet See Rx Instructions .ROUTE 02/18/21 .COMPLEX #45 tab cyclobenzaprine 10 mg tablet See Rx Instructions .ROUTE 04/23/21 .COMPLEX #30 tab trazodone 50 mg tablet See Rx Instructions .ROUTE 04/23/21 .COMPLEX #60 tab lisinopril 20 mg tablet See Rx Instructions .ROUTE 05/06/21 .COMPLEX #30 tab triamterene 37.5 See Rx Instructions .ROUTE 05/06/21 mg-hydrochlorothiazide 25 mg tablet .COMPLEX #30 tablet oxycodone 5 mg tablet 5 mg PO BEDTIME #3 tab 05/09/21 oxycodone-acetaminophen 5 mg-325 1 tab PO Q6H PRN #10 tab 05/09/21 mg tablet Allergies Allergy/AdvReac Type Severity Reaction Status Date / Time felodipine [FELODIPINE] Allergy Severe EDEMA IN Verified 10/23/20 08:21 THE LOWER LEGS pineapple [PINEAPPLE] Allergy Severe TONGUE Verified 10/23/20 08:21 SWELLING strawberry [STRAWBERRY] Allergy Severe ITCHING, Verified 10/23/20 08:21 WELTS ON ARMS Sulfa (Sulfonamide Allergy Severe ANAPHYLAXIS Verified 10/23/20 08:21 Antibiotics) [SULFA (SULFONAMIDE ANTIBIOTICS)] tramadol [TRAMADOL] Allergy Severe SWELLING Verified 10/23/20 08:21 IN THE LEGS adhesive tape Allergy Intermediate red, Verified 10/23/20 08:21 blister, itching gabapentin [GABAPENTIN] Allergy Unknown leg Verified 10/23/20 08:21 swelling NSAIDS (Non-Steroidal Allergy Unknown irritates Verified 10/23/20 08:21 Anti-Inflamma GI tract [NSAIDS (NON-STEROIDAL ANTI-INFLAMMA] sucralfate AdvReac Mild itching Verified 10/23/20 08:21 Review of Systems <Alton Jett PA-C - Last Filed: 05/09/21 19:36> Constitutional Constitutional: Denies chills, Denies fatigue, Denies fever(s), Denies frequent falls, Denies lethargy and Denies weakness Eyes Eyes: Denies loss of vision ENT Ears, Nose, Mouth, and Throat: Denies dizziness and Denies neck pain Cardiovascular Cardiovascular: Denies chest pain, Denies irregular heart rhythm, Denies lightheadedness, Denies palpitations, Denies dyspnea, Denies dyspnea on exertion and Denies orthopnea Respiratory Respiratory: Denies cough, Denies dyspnea, Denies dyspnea on exertion and Denies wheezing Gastrointestinal Gastrointestinal: Denies abdominal pain, Denies change in bowel habits, Denies diarrhea, Denies nausea and Denies vomiting Genitourinary Genitourinary: Denies hematuria, Denies flank pain, Denies urinary incontinence and Denies urinary urgency Musculoskeletal Musculoskeletal: Reports back pain, Denies muscle weakness, Denies neck pain, Denies numbness and Denies tingling Neurologic Neurologic: Denies behavioral changes, Denies confusion, Denies dizziness, Denies frequent falls, Denies loss of vision, Denies numbness, Denies tingling and Denies weakness Psychiatric Psychiatric: Denies behavioral changes and Denies confusion Endocrine Endocrine: Denies fatigue and Denies palpitations Allergic/Immunologic Allergic/Immunologic: Denies wheezing Patient History <Alton Jett PA-C - Last Filed: 05/09/21 19:36> Medical History (Updated 05/09/21 @ 15:52 by Alton Jett PA-C) Anemia Anxiety Chicken pox (1978) Depression Fibromyalgia Foot pain (2012) Gastric ulcer (01/24/10) Hypertension Hypothyroidism Irregular periods/menstrual cycles Mumps (1969) Osteoarthritis Recurrent sinusitis Surgical History Anesthesia History of incisional hernia repair (01/17/13) History of surgery (12/2015) Hx of abdominal surgery (01/24/10) Status post appendectomy (1977) Status post delivery (08/28/00) Status post right foot surgery (06/19/15) Family History Grandmother Hypertension Stroke Mother Age: 77 Hypertension Mental health problem Stroke Sister Age: 49 Hypertension High cholesterol Mental health problem Father Traffic accident Grandfather Swallowed foreign body Grandfather No problems noted. Grandmother No problems noted. Sister No problems noted. 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 seatbelt use: always helmet use: Yes water heater temp set < 120 deg: Yes working smoke detector in home: Yes fire extinguisher in home: Yes carbon monox detector in home: Yes firearms in home: No Smoking Status: Current every day smoker quit status: quit date established during the past year weight has: increased > 10 lbs well-balanced diet: daily or most days daily servings fruits/ve-4 caffeine: Yes eating out: 1-3 times/week Smoking Status: Current every day smoker alcohol intake frequency: holidays/special occasions only Substance Use Type: does not use Exam <Alton Jett PA-C - Last Filed: 05/09/21 19:36> Narrative Exam Narrative: GENERAL: 56 year old patient appears stated age. Well-developed patient, in no acute distress. HEAD: Atraumatic. Normocephalic. EYES: Pupils equal round and reactive. Extraocular motions intact. No scleral icterus. No injection or drainage. ENT: Nose without bleeding, purulent drainage. Throat without erythema, tonsillar hypertrophy or exudate. Airway patent. NECK: Trachea midline. Non tender CARDIOVASCULAR: Regular rate and rhythm without murmurs, gallops, or rubs. RESPIRATORY: Clear to auscultation. Breath sounds equal bilaterally. No wheezes, rales, or rhonchi. GASTROINTESTINAL: Abdomen soft, non-tender, nondistended. EXTREMITIES: No edema or joint tenderness. BACK: No deformity or crepitance. No flank tenderness. Tenderness to palpation appreciated throughout the sacrum. No deformity, ecchymosis, erythema, or swelling noted. NEURO: AOx3. Good sensation appreciated throughout the bilateral lower extremities to light touch. Gross motor function intact throughout the bilateral lower extremities. SKIN: No rash or erythema of visible areas Initial Vital Signs Initial Vital Signs: Vital Signs Temperature 97.1 F L 05/09/21 12:02 Pulse Rate 108 H 05/09/21 12:02 Respiratory Rate 18 05/09/21 12:02 Blood Pressure 180/110 H 05/09/21 12:02 Pulse Oximetry 99 05/09/21 12:02 <Era Caro MD - Last Filed: 05/15/21 08:12> Initial Vital Signs Initial Vital Signs: Vital Signs Temperature 97.1 F L 05/09/21 12:02 Pulse Rate 108 H 05/09/21 12:02 Respiratory Rate 18 05/09/21 12:02 Blood Pressure 180/110 H 12/16/21 12:02 Pulse Oximetry 99 05/09/21 12:02 Course <Alton Jett PA-C - Last Filed: 05/09/21 19:36> Course Course Narrative: 50 mg of IM Toradol administered. Orders Ordered: Discontinued Medications Ketorolac Tromethamine (Ketorolac 30 Mg/Ml Vial) 15 mg IM NOW ONE Stop: 05/09/21 15:47 Last Admin: 05/09/21 15:57 Dose: 15 mg Documented by: GIA Vital Signs Vital signs: Vital Signs - 8 hr 05/09/21 12:02 05/09/21 16:50 Temperature 97.1 F L Pulse Rate 108 H 96 H Respiratory Rate 18 16 Blood Pressure 180/110 H 138/72 Pulse Oximetry 99 98 <Era Caro MD - Last Filed: 05/15/21 08:12> Orders Ordered: Discontinued Medications Ketorolac Tromethamine (Ketorolac 30 Mg/Ml Vial) 15 mg IM NOW ONE Stop: 05/09/21 15:47 Last Admin: 05/09/21 15:57 Dose: 15 mg Documented by: GIA Vital Signs Vital signs: Vital Signs - 8 hr 05/09/21 12:02 05/09/21 16:50 Temperature 97.1 F L Pulse Rate 108 H 96 H Respiratory Rate 18 16 Blood Pressure 180/110 H 138/72 Pulse Oximetry 99 98 MDM - Back Pain/Injury <Alton Jett PA-C - Last Filed: 05/09/21 19:36> MDM Narrative Medical decision making narrative: To consider low back pain versus lumbago versus herniated disc versus spinal stenosis. Overall physical examination and history are reassuring. Discussed with patient possibility of ordering imaging at this time, however since she does not report any recent trauma, falls, or injuries she does not feel it is necessary. Discussed treatment plan with patient she agrees to plan. At this time she feels comfortable being discharged home. Strict return precautions discussed prior to discharge. Reviewed allergies with patient prior to discharge, she states she is not allergic to oxycodone. Discharge Plan Departure Patient Disposition: Home Clinical Impression: Low back pain Instructions: DI for Low Back Pain Activity Restrictions/Additional Instructions: *You have been diagnosed with low back pain *What to do: *Please continue to take your regular medications as directed. [ ] New medication prescriptions sent to your pharmacy: [ ] [X] New medication written as a paper prescription: [facility] - Oxycodone [ ] No new medications given *Please follow up with your primary care provider in 2-3 days, call for an appointment. Let them know you were seen in the Emergency Department and that we ask that you be seen in follow up. We will electronically transmit a record of today's note if your PCP is in our system *If you do not have a primary care provider please contact the [facility] R sabrina line at [phone]. They will ask some questions about your medical history and help get you set up with a doctor in the community. *Return to Emergency Department if you should have any new, worsening or concerning symptoms, such as fever greater than 101 F, shaking chills, worsening pain, persistent vomiting, numbness and tingling in the legs, urinary incontinence, fecal incontinence, or other bothersome symptoms. Prescriptions: New oxycodone 5 mg tablet 5 mg PO BEDTIME Qty: 3 0RF oxycodone-acetaminophen 5-325 mg tablet 1 tab PO Q6H PRN (Reason: pain) Qty: 10 0RF No Action metoclopramide HCl [Reglan] 10 mg tablet 10 mg PO Q6H PRN (Reason: nausea and vomiting) Qty: 20 0RF nystatin 100,000 unit/gram powder 1 applic topical QID Qty: 60 3RF nitrofurantoin macrocrystal 100 mg capsule 100 mg PO BID Qty: 10 0RF Rx Instructions: must administer with a meal/food acyclovir 400 mg tablet 400 mg PO TID Qty: 21 2RF atorvastatin 40 mg tablet See Rx Instructions .ROUTE .COMPLEX Qty: 90 1RF Dose Instruction: TAKE 1 TABLET BY MOUTH AT BEDTIME Rx Instructions: TAKE 1 TABLET BY MOUTH AT BEDTIME oxycodone 5 mg tablet 5 mg PO BID PRN (Reason: pain) Qty: 10 0RF omeprazole 20 mg capsule,delayed release(DR/EC) See Rx Instructions .ROUTE .COMPLEX Qty: 60 1RF Dose Instruction: TAKE ONE CAPSULE BY MOUTH TWICE DAILY FOR GASTRITIS Rx Instructions: TAKE ONE CAPSULE BY MOUTH TWICE DAILY FOR GASTRITIS levothyroxine 112 mcg tablet See Rx Instructions .ROUTE .COMPLEX Qty: 30 3RF Dose Instruction: TAKE 1 TABLET BY MOUTH EVERY MORNING Rx Instructions: TAKE 1 TABLET BY MOUTH EVERY MORNING meloxicam 7.5 mg tablet See Rx Instructions .ROUTE .COMPLEX Qty: 30 1RF Dose Instruction: TAKE 1 TABLET BY MOUTH EVERY DAY WITH LARGEST MEAL Rx Instructions: TAKE 1 TABLET BY MOUTH EVERY DAY WITH LARGEST MEAL duloxetine 60 mg capsule,delayed release(DR/EC) See Rx Instructions .ROUTE .COMPLEX Qty: 90 3RF Dose Instruction: TAKE 1 CAPSULE BY MOUTH EVERY DAY Rx Instructions: TAKE 1 CAPSULE BY MOUTH EVERY DAY paroxetine HCl 40 mg tablet See Rx Instructions .ROUTE .COMPLEX Qty: 45 2RF Dose Instruction: TAKE 1/2 TABLET BY MOUTH EVERY MORNING Rx Instructions: TAKE 1/2 TABLET BY MOUTH EVERY MORNING cyclobenzaprine 10 mg tablet See Rx Instructions .ROUTE .COMPLEX Qty: 30 1RF Dose Instruction: TAKE ONE TABLET BY MOUTH THREE TIMES DAILY Rx Instructions: TAKE ONE TABLET BY MOUTH THREE TIMES DAILY trazodone 50 mg tablet See Rx Instructions .ROUTE .COMPLEX Qty: 60 1RF Dose Instruction: TAKE 2 TABLETS BY MOUTH AT BEDTIME NEEDED FOR INSOMNIA Rx Instructions: TAKE 2 TABLETS BY MOUTH AT BEDTIME NEEDED FOR INSOMNIA triamterene-hydrochlorothiazid 37.5-25 mg tablet See Rx Instructions .ROUTE .COMPLEX Qty: 30 2RF Dose Instruction: TAKE ONE TABLET BY MOUTH ONE TIME DAILY Rx Instructions: TAKE ONE TABLET BY MOUTH ONE TIME DAILY lisinopril 20 mg tablet See Rx Instructions .ROUTE .COMPLEX Qty: 30 2RF Dose Instruction: TAKE ONE TABLET BY MOUTH ONE TIME DAILY Rx Instructions: TAKE ONE TABLET BY MOUTH ONE TIME DAILY acetaminophen 500 mg capsule 1,000 mg PO Q6H PRN (Reason: Muscle Pain) 0RF Referrals: Abbey Patel MD [Primary Care Provider] - <Era Caro MD - Last Filed: 05/15/21 08:12> Cosign ED Attending Cosignature Attestation: I was immediately available in the department for consultation throughout this patient's visit. I agree with documentation as above. Era Caro MD
[2021-05-09] MEDS: KETOROLAC 30 MG/ML VIAL 15 MG IM (15:57)
[2021-05-09 16:50] VITALS: BP 138/72; PULSE 96; RESP 16; O2SAT 98
--- NOTE | 2021-05-09 18:46 | PC.NURSE ---
Patient left without prescription. Voicemail left for patient to call back ED manager fund. 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
== END 2021-05-09 16:51 | disposition home or self-care (01) ==
PROVIDERS: Emergency Provider Physician Assistant; PCP Family Medicine
DX: M54.50 Low back pain, unspecified (principal); Z88.6 Allergy status to analgesic agent; Z88.5 Allergy status to narcotic agent; F17.200 Nicotine dependence, unspecified, uncomplicated
CPT/HCPCS: 96372; 99283; J1885

== ENCOUNTER → 2021-06-21 09:21 | Outpatient (CLI) | payer OTHER, SELFPAY ==
--- NOTE | 2021-06-21 09:22 | DI.US.S_ITS ---
PROCEDURE: US THYROID INDICATIONS: GOITER TECHNIQUE: Real-time scanning was performed of the thyroid gland, with image documentation. COMPARISON: [facility], [place], US THYROID, 10/09/2020, 10:52. FINDINGS: Right: Thyroid lobe measures 8.0 x 2.8 x 4.0 cm, and is heterogeneous in echotexture. Mildly increased vascularity. Left: Thyroid lobe measures 6.5 x 2.4 x 2.9 cm, and is heterogeneous in echotexture. Mildly increased vascularity. Isthmus: 11.7 mm thick. Nodule number: 1 Location: Superior right thyroid lobe Size: 0.9 x 0.5 x 0.6 cm. Composition: Calcified. Echogenicity: Hyperechoic Shape: wider than tall. Margins: Smooth Echogenic foci: Macrocalcification Total points: 3 ACR TI-RADS category: 3 IMPRESSION: 1. Diffusely enlarged thyroid gland with heterogeneous echotexture suggesting thyroiditis or multinodular goiter. Please correlate with thyroid function tests. 2. A calcified nodule in the superior right thyroid lobe. ACR TI-RADS definitions and recommendations: TI-RADS 1 (benign): 0 points. FNA not needed. TI-RADS 2 (not suspicious): 2 points. FNA not needed. TI-RADS 3 (mildly suspicious): 3 points. * FNA if 2.5 cm or larger, follow up if 1.5 cm or larger (at 1, 3, and 5 years). TI-RADS 4 (moderately suspicious): 4-6 points. * FNA if 1.5 cm or larger, follow up if 1 cm or larger (at 1, 2, 3, and 5 years). TI-RADS 5 (highly suspicious): 7 points or more. * FNA if 1 cm or larger, follow up if 0.5 cm or larger (every year for 5 years). Dictated by: Félix Castano M.D. on 06/21/2021 at 18:27 Approved by: Félix Castano M.D. on 06/21/2021 at 18:30
== END ==
PROVIDERS: PCP Family Medicine; Referring Provider Family Medicine; Visit Provider Family Medicine
DX: E04.1 Nontoxic single thyroid nodule (principal)
CPT/HCPCS: 76536

== ENCOUNTER 2021-06-21 09:45 | Emergency (ER) | payer OTHER, SELFPAY ==
[2021-06-21 09:48] VITALS: BP 145/86; PULSE 126; RESP 18; TEMP 36.3; O2SAT 99; BMI 37.4
--- NOTE | 2021-06-21 10:06 | ED_ITS ---
HPI - Fall General Chief Complaint: Trauma Stated Complaint: fell and smashed her face, left side Time Seen by Provider: 06/21/21 10:05 Source: patient Mode of arrival: Ambulatory History of Present Illness HPI Narrative: Patient stepped outside her home into the dark 3 nights ago. She tripped over yard debris. She fell striking her left face on concrete. She denies LOC. She has no acute visual changes. She has had intermittent epistaxis, including this morning. She complains of tingling to the left upper nose. She has significant ecchymosis to the left periorbital area of the left cheek. She has ongoing edema to the site 3 days later. There is no dental injury. She denies neck pain. She has no chest pain or dyspnea. She has no extremity injuries. Injuries are limited to her left face as described above. Related Data Home Medications Medication Instructions Recorded Confirmed acetaminophen 500 mg capsule 1,000 mg PO Q6H PRN 11/03/19 01/18/21 Previous Rx's Medication Instructions Recorded metoclopramide HCl 10 mg tablet 10 mg PO Q6H PRN #20 tab 11/11/19 (Reglan) nystatin 100,000 unit/gram topical 1 applic TOPICAL QID #60 g 04/24/20 powder nitrofurantoin macrocrystal 100 mg 100 mg PO BID #10 cap 05/29/20 capsule acyclovir 400 mg tablet 400 mg PO TID #21 tab 06/21/20 oxycodone 5 mg tablet 5 mg PO BID PRN #10 tab 01/18/21 duloxetine 60 mg capsule,delayed See Rx Instructions .ROUTE 02/18/21 release .COMPLEX #90 cap paroxetine HCl 40 mg tablet See Rx Instructions .ROUTE 02/18/21 .COMPLEX #45 tab trazodone 50 mg tablet See Rx Instructions .ROUTE 04/23/21 .COMPLEX #60 tab lisinopril 20 mg tablet See Rx Instructions .ROUTE 05/06/21 .COMPLEX #30 tab triamterene 37.5 See Rx Instructions .ROUTE 05/06/21 mg-hydrochlorothiazide 25 mg tablet .COMPLEX #30 tablet oxycodone 5 mg tablet 5 mg PO BEDTIME #3 tab 05/09/21 oxycodone-acetaminophen 5 mg-325 1 tab PO Q6H PRN #10 tab 05/09/21 mg tablet meloxicam 7.5 mg tablet See Rx Instructions .ROUTE 05/21/21 .COMPLEX #30 tab omeprazole 20 mg capsule,delayed See Rx Instructions .ROUTE 05/21/21 release .COMPLEX #60 cap cyclobenzaprine 10 mg tablet See Rx Instructions .ROUTE 06/12/21 .COMPLEX #30 tab levothyroxine 112 mcg tablet See Rx Instructions .ROUTE 06/12/21 .COMPLEX #30 tab atorvastatin 40 mg tablet See Rx Instructions .ROUTE 06/17/21 .COMPLEX #90 tab cephalexin 500 mg capsule 500 mg PO Q6H 7 Days #28 cap 06/21/21 hydrocodone 5 mg-acetaminophen 325 1 tab PO Q4-6H PRN #14 tab 06/21/21 mg tablet Allergies Allergy/AdvReac Type Severity Reaction Status Date / Time felodipine [FELODIPINE] Allergy Severe EDEMA IN Verified 06/21/21 12:11 THE LOWER LEGS pineapple [PINEAPPLE] Allergy Severe TONGUE Verified 06/21/21 12:11 SWELLING strawberry [STRAWBERRY] Allergy Severe ITCHING, Verified 06/21/21 12:11 WELTS ON ARMS Sulfa (Sulfonamide Allergy Severe ANAPHYLAXIS Verified 06/21/21 12:11 Antibiotics) [SULFA (SULFONAMIDE ANTIBIOTICS)] tramadol [TRAMADOL] Allergy Severe SWELLING Verified 06/21/21 12:11 IN THE LEGS adhesive tape Allergy Intermediate red, Verified 06/21/21 12:11 blister, itching gabapentin [GABAPENTIN] Allergy Unknown leg Verified 06/21/21 12:11 swelling NSAIDS (Non-Steroidal Allergy Unknown irritates Verified 06/21/21 12:11 Anti-Inflamma GI tract [NSAIDS (NON-STEROIDAL ANTI-INFLAMMA] sucralfate AdvReac Mild itching Verified 06/21/21 12:11 Review of Systems Constitutional Constitutional: Denies chills, Denies fatigue, Denies fever(s) and Denies headache(s) Eyes Eyes: Denies blurry vision and Denies change in vision ENT Ears, Nose, Mouth, and Throat: Denies vertigo, Denies dizziness, Denies headache(s), Denies sore throat and Denies throat swelling Comments: Left facial injuries noted HPI. Cardiovascular Cardiovascular: Denies chest pain, Denies syncope, Denies rapid heart rate and Denies dyspnea Respiratory Respiratory: Denies cough and Denies dyspnea Gastrointestinal Gastrointestinal: Denies nausea and Denies vomiting Musculoskeletal Musculoskeletal: Denies back pain and Denies arthralgias Integumentary/Breasts Skin/Breast: Denies lesions and Denies rash Neurologic Neurologic: Denies behavioral changes, Denies vertigo, Denies dizziness, Denies syncope and Denies headache(s) Psychiatric Psychiatric: Denies anxiety and Denies behavioral changes Endocrine Endocrine: Denies fatigue Hematologic/Lymphatic Hematologic/Lymphatic: Denies easy bleeding and Denies easy bruising Allergic/Immunologic Allergic/Immunologic: Denies throat swelling Patient History Medical History Anemia Anxiety Chicken pox (1978) Depression Fibromyalgia Foot pain (2012) Gastric ulcer (01/24/10) Hypertension Hypothyroidism Irregular periods/menstrual cycles Mumps (1969) Osteoarthritis Recurrent sinusitis Surgical History Anesthesia History of incisional hernia repair (01/17/13) History of surgery (12/2015) Hx of abdominal surgery (01/24/10) Status post appendectomy (1977) Status post delivery (08/28/00) Status post right foot surgery (06/19/15) Family History Grandmother Hypertension Stroke Mother Age: 77 Hypertension Mental health problem Stroke Sister Age: 49 Hypertension High cholesterol Mental health problem Father Traffic accident Grandfather Swallowed foreign body Grandfather No problems noted. Grandmother No problems noted. Sister No problems noted. 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 seatbelt use: always helmet use: Yes water heater temp set < 120 deg: Yes working smoke detector in home: Yes fire extinguisher in home: Yes carbon monox detector in home: Yes firearms in home: No Smoking Status: Current every day smoker quit status: quit date established during the past year weight has: increased > 10 lbs well-balanced diet: daily or most days daily servings fruits/ve-4 caffeine: Yes eating out: 1-3 times/week Smoking Status: Current every day smoker alcohol intake frequency: holidays/special occasions only Substance Use Type: does not use Exam Initial Vital Signs Initial Vital Signs: Vital Signs Temperature 97.4 F L 06/21/21 09:48 Pulse Rate 126 H 06/21/21 09:48 Respiratory Rate 18 06/21/21 09:48 Blood Pressure 145/86 H 06/21/21 09:48 Pulse Oximetry 99 06/21/21 09:48 Const General: cooperative, healthy appearing and comfortable [facility] Head: normal to inspection and contusion (Large inferior orbital/left cheek contusion with hematoma.) Face and sinus: no crepitus Mouth: oral mucosae normal Throat: posterior oropharynx normal Eyes General: appearance normal, both eyes and all related structures Alignment and Position: alignment normal Pupils: PERRL EOM: EOM intact bilaterally (No suggestion of entrapment.) Neck Neck: full ROM, supple and No tender Resp Effort & Inspection: normal respiratory effort Auscultation: clear to auscultation bilaterally Cardio Rate: regular rate Rhythm: regular rhythm Heart Sounds: S1 normal, S2 normal, no click, no gallops, no murmurs and no rubs GI Inspection: normal to inspection Palpation: soft and No tender Auscultation: normal bowel sounds Skin General: no rashes or lesions noted (Other than the facial injury) Neuro General: patient alert, patient awake, patient oriented x3 and no focal motor deficits Cranial Nerves: CN's II-XI intact bilaterally and individual cranial nerve findings Extrem General: normal to inspection and full ROM Course Course Course Narrative: The patient has a left inferior orbital blowout fracture, with no evidence of entrapment. The case was discussed initially with ENT, Dr. Hernandez. He recommended initial referral to Ophthalmology. Ophthalmology, Dr. Serna was consulted and agreed to see the patient today. The patient was discharged on Spiritwood for pain as well as Keflex. Orders Ordered: Discontinued Medications Hydrocodone Bitart/Acetaminophen (Hydrocodone/Acet 5/325 Tablet) 1 tab PO NOW ONE Stop: 06/21/21 12:12 Last Admin: 06/21/21 12:37 Dose: 1 tab Documented by: JULIA Cephalexin HCl (Cephalexin 250 Mg Capsule) 500 mg PO NOW ONE Stop: 06/21/21 12:12 Last Admin: 06/21/21 12:37 Dose: 500 mg Documented by: JULIA Vital Signs Vital signs: Vital Signs - 8 hr 06/21/21 13:36 Pulse Rate 72 Respiratory Rate 16 Blood Pressure 168/78 H Pulse Oximetry 99 MDM - Fall Imaging Data Facial bone CT: Radiologist's Impression: Left inferior orbital blowout fracture. CT scan - head: Radiologist's Impression: 1. Small punctate focus of hyperintensity at the junction of the right temporal and occipital lobes which may represent artifact or small acute parenchymal bleed. ? 2. Left inferior orbit wall blowout fracture.? Discharge Plan Departure Patient Disposition: Home Clinical Impression: Closed blow-out fracture of left orbit Instructions: DI for Orbital Fracture Activity Restrictions/Additional Instructions: Apply cold compresses over your left face frequently for the next 2 days. OTC analgesics, Tylenol or Advil as needed. Spiritwood every 4 hours as needed for added pain control. Mucinex 2 times daily to avoid sinus congestion. Keflex 4 times daily for 7 days. Once you depart the ER, go [facility], Dr. Rolanda Serna will see you today. Prescriptions: New cephalexin 500 mg capsule 500 mg PO Q6H 7 Days Qty: 28 0RF hydrocodone-acetaminophen 5-325 mg tablet 1 tab PO Q4-6H PRN (Reason: pain) Qty: 14 0RF No Action metoclopramide HCl [Reglan] 10 mg tablet 10 mg PO Q6H PRN (Reason: nausea and vomiting) Qty: 20 0RF nystatin 100,000 unit/gram powder 1 applic topical QID Qty: 60 3RF nitrofurantoin macrocrystal 100 mg capsule 100 mg PO BID Qty: 10 0RF Rx Instructions: must administer with a meal/food acyclovir 400 mg tablet 400 mg PO TID Qty: 21 2RF oxycodone 5 mg tablet 5 mg PO BID PRN (Reason: pain) Qty: 10 0RF duloxetine 60 mg capsule,delayed release(DR/EC) See Rx Instructions .ROUTE .COMPLEX Qty: 90 3RF Dose Instruction: TAKE 1 CAPSULE BY MOUTH EVERY DAY Rx Instructions: TAKE 1 CAPSULE BY MOUTH EVERY DAY paroxetine HCl 40 mg tablet See Rx Instructions .ROUTE .COMPLEX Qty: 45 2RF Dose Instruction: TAKE 1/2 TABLET BY MOUTH EVERY MORNING Rx Instructions: TAKE 1/2 TABLET BY MOUTH EVERY MORNING trazodone 50 mg tablet See Rx Instructions .ROUTE .COMPLEX Qty: 60 1RF Dose Instruction: TAKE 2 TABLETS BY MOUTH AT BEDTIME NEEDED FOR INSOMNIA Rx Instructions: TAKE 2 TABLETS BY MOUTH AT BEDTIME NEEDED FOR INSOMNIA triamterene-hydrochlorothiazid 37.5-25 mg tablet See Rx Instructions .ROUTE .COMPLEX Qty: 30 2RF Dose Instruction: TAKE ONE TABLET BY MOUTH ONE TIME DAILY Rx Instructions: TAKE ONE TABLET BY MOUTH ONE TIME DAILY lisinopril 20 mg tablet See Rx Instructions .ROUTE .COMPLEX Qty: 30 2RF Dose Instruction: TAKE ONE TABLET BY MOUTH ONE TIME DAILY Rx Instructions: TAKE ONE TABLET BY MOUTH ONE TIME DAILY meloxicam 7.5 mg tablet See Rx Instructions .ROUTE .COMPLEX Qty: 30 1RF Dose Instruction: TAKE 1 TABLET BY MOUTH EVERY DAY WITH LARGEST MEAL Rx Instructions: TAKE 1 TABLET BY MOUTH EVERY DAY WITH LARGEST MEAL omeprazole 20 mg capsule,delayed release(DR/EC) See Rx Instructions .ROUTE .COMPLEX Qty: 60 1RF Dose Instruction: TAKE ONE CAPSULE BY MOUTH TWICE DAILY FOR GASTRITIS Rx Instructions: TAKE ONE CAPSULE BY MOUTH TWICE DAILY FOR GASTRITIS cyclobenzaprine 10 mg tablet See Rx Instructions .ROUTE .COMPLEX Qty: 30 1RF Dose Instruction: TAKE ONE TABLET BY MOUTH THREE TIMES DAILY Rx Instructions: TAKE ONE TABLET BY MOUTH THREE TIMES DAILY levothyroxine 112 mcg tablet See Rx Instructions .ROUTE .COMPLEX Qty: 30 3RF Dose Instruction: TAKE 1 TABLET BY MOUTH EVERY MORNING Rx Instructions: TAKE 1 TABLET BY MOUTH EVERY MORNING atorvastatin 40 mg tablet See Rx Instructions .ROUTE .COMPLEX Qty: 90 1RF Dose Instruction: TAKE 1 TABLET BY MOUTH AT BEDTIME Rx Instructions: TAKE 1 TABLET BY MOUTH AT BEDTIME acetaminophen 500 mg capsule 1,000 mg PO Q6H PRN (Reason: Muscle Pain) 0RF oxycodone 5 mg tablet 5 mg PO BEDTIME Qty: 3 0RF oxycodone-acetaminophen 5-325 mg tablet 1 tab PO Q6H PRN (Reason: pain) Qty: 10 0RF Referrals: Rolanda Serna MD [Physician] - Abbey Patel MD [Primary Care Provider] -
--- NOTE | 2021-06-21 10:07 | DI.CT.S_ITS ---
PROCEDURE: CT HEAD/BRAIN WO CON INDICATIONS: Fall. Significant facial injury. TECHNIQUE: Noncontrast 4.5 mm thick angled axial sections acquired from the foramen magnum to the vertex, with coronal and sagittal reformats. For radiation dose reduction, the following was used: automated exposure control, adjustment of mA and/or kV according to patient size. COMPARISON: None. FINDINGS: Image quality: Excellent. CSF spaces: Basal cisterns are patent. No extra-axial fluid collections. Ventricles are normal in size and shape. Brain: No midline shift. No intracranial masses. Small punctate focus of hyperintensity noted at the junction of the right temporal-occipital lobes (series 4, image 33; series 2, image 15). Goodwin-white matter interface is normal. Skull and face: Calvarium is intact, without suspicious lesions. Large fracture of the left inferior orbit wall. Left periorbital facial soft tissue swelling. Small metallic foreign bodies noted in the left frontal scalp of uncertain etiology. Sinuses: Small amount of hemorrhage noted in the left maxillary sinus. The mastoids are clear. IMPRESSION: 1. Small punctate focus of hyperintensity at the junction of the right temporal and occipital lobes which may represent artifact or small acute parenchymal bleed. 2. Left inferior orbit wall blowout fracture. Dictated by: Jennifer Olmedo MD, PhD on 06/21/2021 at 10:59 Approved by: Jennifer Olmedo MD, PhD on 06/21/2021 at 11:02
--- NOTE | 2021-06-21 10:07 | DI.CT.S_ITS ---
PROCEDURE: CT FACIAL BONES WO CON INDICATIONS: Fall with left facial injury. TECHNIQUE: Noncontrast 2.5 mm thick axial images acquired from the mandible through the frontal sinuses, with coronal and sagittal reformatting. For radiation dose reduction, the following was used: automated exposure control, adjustment of mA and/or kV according to patient size. COMPARISON: None. FINDINGS: Image quality: Excellent. Bones and teeth: Blowout fracture of the left inferior orbit wall noted. 7 millimeter and 8 millimeter segmented bone fragments are displaced inferiorly into the right maxillary sinus. Left extraconal, intraorbital fat is displaced through the inferior orbit wall defect. The left inferior rectus muscle follows a normal course and has normal contour without CT evidence of impingement. Sinus frias show no fracture or deformity. Nasal bones and septum are intact. Visualized portions of the mandible demonstrate no fractures or subluxation. Zygomatic arches are intact. Pterygoid plates are intact. Visualized portions of the skull base and auditory canals are intact. Sinuses: Mild mucosal thickening noted in the left maxillary sinus. Small small amount of intra sinus hemorrhage noted in left maxillary sinus. Mastoid air cells are aerated. Soft tissues: Left periorbital facial soft tissue swelling. No retro bulbar orbit fluid collections are inflammation. No enlarged lymph nodes. No soft tissue lacerations or debris. Vascular: Visualized vascular structures appear normal in the absence of contrast. Bony vascular foramina and canals are intact. IMPRESSION: Left inferior orbit wall fracture. Dictated by: Jennifer Olmedo MD, PhD on 06/21/2021 at 10:53 Approved by: Jennifer Olmedo MD, PhD on 06/21/2021 at 10:57
[2021-06-21] MEDS: cephALEXin 250 MG CAPSULE 500 MG PO (12:37)
[2021-06-21] MEDS: HYDROCODONE/ACET 5/325 TABLET 1 TAB PO (12:37)
[2021-06-21 13:36] VITALS: BP 168/78; PULSE 72; RESP 16; O2SAT 99
== END 2021-06-21 13:38 | disposition home or self-care (01) ==
PROVIDERS: Emergency Provider Emergency Medicine; PCP Family Medicine
DX: S02.32XA Fracture of orbital floor, left side, initial encounter for closed fracture (principal); E04.1 Nontoxic single thyroid nodule; F17.200 Nicotine dependence, unspecified, uncomplicated; W18.09XA Striking against other object with subsequent fall, initial encounter; Y92.009 Unspecified place in unspecified non-institutional (private) residence as the place of occurrence of the external cause
CPT/HCPCS: 70450; 70486; 76536; 99284

== ENCOUNTER → 2021-07-08 09:32 | Outpatient (CLI) | payer OTHER, SELFPAY ==
[2021-07-08 11:44] LABS: Free T4, Direct Thyroxine 1.28 ng/dL (0.78-2.19)
[2021-07-08 11:58] LABS: Thyroid Stimulating Hormone 4.09 uIU/mL (0.47-4.68)
[2021-07-09 11:08] LABS: Triiodothyronine T3 Total 100 ng/dL (71-180)
== END ==
LOC: LAB 09:33
PROVIDERS: PCP Family Medicine; Referring Provider Family Medicine; Visit Provider Family Medicine
DX: E04.9 Nontoxic goiter, unspecified (principal)
CPT/HCPCS: 36415; 84439; 84443; 84480

== ENCOUNTER → 2021-11-11 13:03 | Outpatient (CLI) | payer OTHER, SELFPAY ==
--- NOTE | 2021-11-11 13:03 | DI.CT.S_ITS ---
PROCEDURE: CT FACIAL BONES WO [facility] INDICATIONS: f/u orbital fracture TECHNIQUE: Noncontrast 2.5 mm thick axial images acquired from the mandible through the frontal sinuses, with coronal and sagittal reformatting. For radiation dose reduction, the following was used: automated exposure control, adjustment of mA and/or kV according to patient size. COMPARISON: [facility], CT, CT HEAD/BRAIN WO [facility], 06/21/2021, 10:38. [facility], CT, CT FACIAL BONES WO [facility], 06/21/2021, 10:38. FINDINGS: Image quality: Excellent. Bones and teeth: Segmented and displaced fracture of the inferior left orbit wall is stable in appearance compared to June 21, 2021. Extraconal left orbit fat herniates through the left inferior orbit wall defect. Left inferior rectus muscle is normal in appearance without evidence of herniation or impingement. Sinus frias show no fracture or deformity. Nasal bones and septum are intact. Visualized portions of the mandible demonstrate no fractures or subluxation. Zygomatic arches are intact. Pterygoid plates are intact. Visualized portions of the skull base and auditory canals are intact. Sinuses: Mild mucosal thickening noted in the frontal sinuses, the ethmoid air cells and the right sphenoid sinus. No air-fluid levels identified in the paranasal sinuses. Mastoid air cells are aerated. Soft tissues: No edema, masses, or fluid collections. No enlarged lymph nodes. No soft tissue lacerations or debris. Vascular: Visualized vascular structures appear normal in the absence of contrast. Bony vascular foramina and canals are intact. IMPRESSION: Left inferior orbit wall fracture stable in appearance compared to June 21, 2021. Dictated by: Jennifer Olmedo MD, PhD on 11/11/2021 at 14:26 Approved by: Jennifer Olmedo MD, PhD on 11/11/2021 at 14:31
--- NOTE | 2021-11-11 13:03 | DI.CT.S_ITS ---
PROCEDURE: CT HEAD/BRAIN WO CON INDICATIONS: f/u orbital fracture TECHNIQUE: Noncontrast 4.5 mm thick angled axial sections acquired from the foramen magnum to the vertex, with coronal and sagittal reformats. For radiation dose reduction, the following was used: automated exposure control, adjustment of mA and/or kV according to patient size. COMPARISON: [facility], CT, CT HEAD/BRAIN WO CON, 06/21/2021, 10:38. FINDINGS: Image quality: Excellent. CSF spaces: Basal cisterns are patent. No extra-axial fluid collections. The ventricles are symmetric in size and shape. Brain: No intracranial bleeds or masses. There is cerebral volume loss for age, with resultant ventricular and sulcal prominence. There are periventricular and deep white matter chronic small vessel ischemic changes. There is intracranial internal carotid artery atherosclerosis. Skull and face: Calvarium appears intact, without suspicious lesions. Left inferior orbit wall fracture is stable compared to the prior exam. Small metallic density foreign bodies noted in the left frontal scalp which are stable. Sinuses: Visualized sinuses and mastoids are clear. IMPRESSION: No acute intracranial disease process. Stable left inferior orbit wall fracture. Dictated by: Jennifer Olmedo MD, PhD on 11/11/2021 at 14:31 Approved by: Jennifer Olmedo MD, PhD on 11/11/2021 at 14:35
== END ==
PROVIDERS: PCP Family Medicine; Referring Provider Family Medicine; Visit Provider Family Medicine
DX: S02.85XA Fracture of orbit, unspecified, initial encounter for closed fracture (principal); W19.XXXA Unspecified fall, initial encounter
CPT/HCPCS: 70450; 70486

== ENCOUNTER → 2022-01-18 10:51 | Outpatient (CLI) | payer OTHER, SELFPAY ==
[2022-01-18 12:33] LABS: Add Manual Diff / Slide Review NO; Basophils Absolute Auto 100 /uL (0-100); Basophils Percent Auto 0.8 % (0-2); Eosinophils Absolute Auto 300 /uL (0-450); Eosinophils Percent Auto 2.1 % (2-4); Hematocrit 38.3 % (36-46); Lymphocytes Absolute Auto 4300 /uL (1100-4500); Lymphocytes Percent Auto 30.4 % (25-40); Mean Corpuscular HGB Conc 33.9 % (30-36); Mean Corpuscular Hemoglobin 32.2 PG (26-34); Mean Corpuscular Volume 95.1 fL (80-100); Monocytes Absolute Auto 900 /uL (0-900); Monocytes Percent Auto 6.5 % (3-14); Neutrophils Absolute Auto 8500 /uL (1500-7000); Neutrophils Percent Auto 60.2 % (50-75); Platelet Count 419 X10^3/uL (150-400); Red Blood Cell Count 4.02 X10^6/uL (4.0-5.2); Red Cell Distribution Width 12.8 % (11.6-14.8); White Blood Cell Count 14.1 X10^3/uL (4.5-11.0)
[2022-01-18 12:45] LABS: Alanine Aminotransferase 34 IU/L (<35); Albumin 4.5 g/dL (3.5-5.0); Albumin Globulin Ratio 1.4 (1.0-2.8); Alkaline Phosphatase 93 U/L (38-126); Aspartate Aminotransferase 32 IU/L (14-36); Bilirubin Total 0.5 mg/dL (0.2-1.3); Blood Urea Nitrogen 33 mg/dL (7-17); Calcium 9.2 mg/dL (8.4-10.2); Carbon Dioxide 25 mmol/L (22-32); Chloride 105 mmol/L (98-107); Estimated Glomerular Filt Rate 50 mL/min (>60); Globulin 3.3 g/dL (1.7-4.1); Glucose 104 mg/dL (70-100); HEMOLYSIS < 15 (0-50); Sodium 139 mmol/L (137-145); Total Protein 7.8 g/dL (6.3-8.2)
[2022-01-18 13:13] LABS: TSH w/ Reflex to FT4 1.34 uIU/mL (0.47-4.68)
== END ==
PROVIDERS: PCP Family Medicine; Referring Provider Family Medicine; Visit Provider Family Medicine
DX: E03.9 Hypothyroidism, unspecified (principal); I10 Essential (primary) hypertension; N60.09 Solitary cyst of unspecified breast
CPT/HCPCS: 36415; 80053; 84443; 85025

== ENCOUNTER 2022-05-04 15:15 | Inpatient (IN) | payer SELFPAY ==
[2022-05-04] VITALS (99 sets, daily range): BP systolic 78–119; BP diastolic 49–72; PULSE 62–111; RESP 14–37; TEMP 34.9–36.7; O2SAT 68–100; BMI 35.8
--- NOTE | 2022-05-04 15:32 | ED.GENADULT ---
HPI - General Adult <Braulio Reed DO - Last Filed: 05/04/22 18:35> General Chief complaint: Fever Stated complaint: Diarrhea x7 / Rt Flank pain / UTI sym Time Seen by Provider: 05/04/22 15:26 Source: patient and EMS Mode of arrival: EMS History of Present Illness HPI narrative: 57-year-old female who is here for evaluation of 7 days of diarrhea. She also states that she is had decreased urine output. Despite the stated complaint she does not have any abdominal pain. She describes it as lower back pain. No vomiting. No fevers. No recent travel. No recent antibiotics. She has tried Imodium at home without any improvement of symptoms. The diarrhea does not change her back pain. Related Data Home Medications Medication Instructions Recorded Confirmed acetaminophen 500 mg capsule 1,000 mg PO Q6H PRN Muscle Pain 11/03/19 01/18/21 Previous Rx's Medication Instructions Recorded metoclopramide HCl 10 mg tablet 10 mg PO Q6H PRN nausea and 11/11/19 (Reglan) vomiting #20 tabs nystatin 100,000 unit/gram topical 1 applic topical QID #60 grams 04/24/20 powder acyclovir 400 mg tablet 400 mg PO TID #21 tabs 06/21/20 omeprazole 20 mg capsule,delayed See Rx Instructions .Route 07/22/21 release .COMPLEX #60 caps paroxetine HCl 40 mg tablet See Rx Instructions .Route 10/07/21 .COMPLEX #45 tabs atorvastatin 40 mg tablet See Rx Instructions .Route 10/18/21 .COMPLEX #90 tabs hydrocodone 5 mg-acetaminophen 325 1 tab PO Q4-6H PRN pain #20 tabs 11/19/21 mg tablet levothyroxine 112 mcg tablet See Rx Instructions .Route 02/27/22 .COMPLEX #30 tabs meloxicam 7.5 mg tablet See Rx Instructions .Route 03/18/22 .COMPLEX #30 tabs triamterene 37.5 See Rx Instructions .Route 04/03/22 mg-hydrochlorothiazide 25 mg tablet .COMPLEX #30 tabs cyclobenzaprine 10 mg tablet See Rx Instructions .Route 04/04/22 .COMPLEX #30 tabs duloxetine 60 mg capsule,delayed See Rx Instructions .Route 04/04/22 release .COMPLEX #30 caps trazodone 50 mg tablet See Rx Instructions .Route 04/04/22 .COMPLEX #60 tabs lisinopril 20 mg tablet See Rx Instructions .Route 04/30/22 .COMPLEX #30 tabs Allergies Allergy/AdvReac Type Severity Reaction Status Date / Time felodipine [FELODIPINE] Allergy Severe EDEMA IN Verified 05/04/22 15:27 THE LOWER LEGS pineapple [PINEAPPLE] Allergy Severe TONGUE Verified 05/04/22 15:27 SWELLING strawberry [STRAWBERRY] Allergy Severe ITCHING, Verified 05/04/22 15:27 WELTS ON ARMS Sulfa (Sulfonamide Allergy Severe ANAPHYLAXIS Verified 05/04/22 15:27 Antibiotics) [SULFA (SULFONAMIDE ANTIBIOTICS)] tramadol [TRAMADOL] Allergy Severe SWELLING Verified 05/04/22 15:27 IN THE LEGS adhesive tape Allergy Intermediate red, Verified 05/04/22 15:27 blister, itching gabapentin [GABAPENTIN] Allergy Unknown leg Verified 05/04/22 15:27 swelling NSAIDS (Non-Steroidal Allergy Unknown irritates Verified 05/04/22 15:27 Anti-Inflamma GI tract [NSAIDS (NON-STEROIDAL ANTI-INFLAMMA] sucralfate AdvReac Mild itching Verified 05/04/22 15:27 Review of Systems <Braulio Reed DO - Last Filed: 05/04/22 18:35> Constitutional Constitutional: Reports system reviewed and no additional complaints, except as documented Cardiovascular Cardiovascular: Reports system reviewed and no additional complaints, except as documented Respiratory Respiratory: Reports system reviewed and no additional complaints, except as documented Gastrointestinal Gastrointestinal: Reports system reviewed and no additional complaints, except as documented Genitourinary Genitourinary: Reports system reviewed and no additional complaints, except as documented Musculoskeletal Musculoskeletal: Reports system reviewed and no additional complaints, except as documented Integumentary/Breasts Skin/Breast: Reports system reviewed and no additional complaints, except as documented Hematologic/Lymphatic On Anticoagulants: No Patient History <Braulio Reed DO - Last Filed: 05/04/22 18:35> Medical History (Updated 05/05/22 @ 04:33 by Marvin Lundberg DO) Anemia Anxiety Chicken pox (1978) Depression Fibromyalgia Foot pain (2012) Gastric ulcer (01/24/10) Hypertension Hypothyroidism Irregular periods/menstrual cycles Mumps (1969) Osteoarthritis Recurrent sinusitis Surgical History Anesthesia History of incisional hernia repair (01/17/13) History of surgery (12/2015) Hx of abdominal surgery (01/24/10) Status post appendectomy (1977) Status post delivery (08/28/00) Status post right foot surgery (06/19/15) Family History Grandmother Hypertension Stroke Mother Age: 78 Hypertension Mental health problem Stroke Sister Age: 50 Hypertension High cholesterol Mental health problem Father Traffic accident Grandfather Swallowed foreign body Grandfather No problems noted. Grandmother No problems noted. Sister No problems noted. 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 seatbelt use: always helmet use: Yes water heater temp set < 120 deg: Yes working smoke detector in home: Yes fire extinguisher in home: Yes carbon monox detector in home: Yes firearms in home: No Smoking Status: Current every day smoker quit status: quit date established during the past year weight has: increased > 10 lbs well-balanced diet: daily or most days daily servings fruits/ve-4 caffeine: Yes eating out: 1-3 times/week Smoking Status: Current every day smoker alcohol intake frequency: holidays/special occasions only Substance Use Type: does not use Exam <Braulio Reed DO - Last Filed: 05/04/22 18:35> Initial Vital Signs Initial Vital Signs: Vital Signs Temperature 98.1 F 05/04/22 15:18 Pulse Rate 100 H 05/04/22 15:18 Respiratory Rate 24 05/04/22 15:18 Blood Pressure 88/53 L 05/04/22 15:18 Pulse Oximetry 98 05/04/22 15:18 Oxygen Delivery Method 05/04/22 15:18 Const General: cooperative and No ill appearing HENMT Head: normal to inspection and normocephalic Resp Effort & Inspection: normal respiratory effort Auscultation: clear to auscultation bilaterally Cardio Rate: regular rate Rhythm: regular rhythm Other: Capillary refill approximately 4 seconds GI Palpation: soft, No firm and No tender Back/Spine/Pelvis Thoracic/Lumbar Spine: No paraspinal tenderness, No thoracic spinal tenderness and lumbar spinal tenderness Skin General: no rashes or lesions noted Neuro General: patient alert, patient awake, patient oriented x3 and moves all extremities Extrem General: normal to inspection and capillary refill normal <Marvin Lundberg DO - Last Filed: 05/05/22 04:33> Initial Vital Signs Initial Vital Signs: Vital Signs Temperature 98.1 F 05/04/22 15:18 Pulse Rate 100 H 05/04/22 15:18 Respiratory Rate 24 05/04/22 15:18 Blood Pressure 88/53 L 05/04/22 15:18 Pulse Oximetry 98 05/04/22 15:18 Oxygen Delivery Method 05/04/22 15:18 Scores <Braulio Reed DO - Last Filed: 05/04/22 18:35> GCS [place] coma scale eye opening: Spontaneous [place] coma scale verbal response: Orientated Chuckie coma scale motor response: Obey commands [place] coma scale total score: 15 <Marvin Lundberg, DO - Last Filed: 05/05/22 04:33> GCS Chuckie coma scale total score: 15 Course <Braulio Reed DO - Last Filed: 05/04/22 18:35> Orders Ordered: Acetaminophen (Acetaminophen 325 Mg Tablet) 650 mg PO Q6H PRN PRN Reason: Fever/Mild Pain (1-3) Hydrocodone Bitart/Acetaminophen (Hydrocodone/Acet 5/325 Tablet) 1 tab PO Q4H PRN PRN Reason: Pain, Moderate (4-6) Last Admin: 05/05/22 03:13 Dose: 1 tab Documented By: JAMEL Duloxetine HCl (Duloxetine 30 Mg Capsule) 30 mg PO DAILY [facility] Enoxaparin Sodium (Enoxaparin 40 Mg/0.4 Ml Syringe) 40 mg SUBCUT DAILY [facility] Hydromorphone HCl (Hydromorphone 1 Mg Inj) 1 mg IV Q4H PRN PRN Reason: Pain, Severe (7-10) Piperacillin Sod/Tazobactam (Sod 3.375 gm/ Sodium Chloride) 100 mls @ 25 mls/hr IV Q8H [facility] Last Admin: 05/05/22 03:26 Dose: 25 mls/hr Documented By: JAMEL Dextrose/Sodium Chloride (Dextrose 5%-0.45% Ns) 1,000 mls @ 100 mls/hr IV CONT [facility] Last Admin: 05/05/22 03:27 Dose: 100 mls/hr Documented By: JAMEL Lactated Ringer's (Lactated Ringers) 1,000 mls @ 200 mls/hr IV CONT [facility] Levothyroxine Sodium (Levothyroxine 112 Mcg Tablet) 112 mcg PO 0600 [facility] Naloxone HCl (Naloxone 0.4 Mg/Ml Vial) 0.2 mg IV Q2MIN PRN PRN Reason: Opiate Reversal Pantoprazole Sodium (Pantoprazole 40 Mg Vial) 40 mg IV DAILY [facility] Paroxetine HCl (Paroxetine 20 Mg Tablet) 10 mg PO DAILY [facility] Discontinued Medications Sodium Chloride (Normal Saline 0.9%) 1,000 mls @ 1,000 mls/hr IV BOLUS ONE Stop: 05/04/22 16:25 Last Infusion: 05/04/22 18:02 Dose: 0 mls/hr Documented By: ANN MARIE Admin: 05/04/22 16:19 Dose: 1,000 mls/hr Documented By: PRAKASH Sodium Chloride (Normal Saline 0.9%) 1,000 mls @ 1,000 mls/hr IV BOLUS ONE Stop: 05/04/22 17:03 Last Infusion: 05/04/22 17:01 Dose: 0 mls/hr Documented By: ANN MARIE Infusion: 05/04/22 17:00 Dose: 0 mls/hr Documented By: ANN MARIE Admin: 05/04/22 16:19 Dose: 1,000 mls/hr Documented By: PRAKASH Metronidazole (Flagyl) 500 mg in 100 mls @ 100 mls/hr IV NOW ONE Stop: 05/04/22 17:41 Last Infusion: 05/04/22 18:46 Dose: 0 mls/hr Documented By: ANN MARIE Admin: 05/04/22 17:41 Dose: 100 mls/hr Documented By: GALINDO Vancomycin HCl (Vancomycin) 1,000 mg in 200 mls @ 200 mls/hr IV NOW ONE Stop: 05/04/22 17:43 Last Infusion: 05/04/22 19:50 Dose: 0 mls/hr Documented By: Admin: 05/04/22 18:49 Dose: 200 mls/hr Documented By: ANN MARIE Piperacillin Sod/Tazobactam (Sod 4.5 gm/ Sodium Chloride) 100 mls @ 200 mls/hr IV NOW ONE Stop: 05/04/22 16:45 Last Infusion: 05/04/22 17:40 Dose: 0 mls/hr Documented By: Admin: 05/04/22 16:58 Dose: 200 mls/hr Documented By: ANN MARIE Sodium Chloride (Normal Saline 0.9%) 1,000 mls @ 250 mls/hr IV CONT N[facility] Last Admin: 05/04/22 17:35 Dose: Not Given Documented By: GALINDO Sodium Chloride (Normal Saline 0.9%) 1,000 mls @ 1,000 mls/hr IV BOLUS ONE Stop: 05/04/22 18:03 Last Infusion: 05/04/22 18:53 Dose: 0 mls/hr Documented By: ANN MARIE Admin: 05/04/22 17:35 Dose: 1,000 mls/hr Documented By: GALINDO Lactated Ringer's (Lactated Ringers) 1,000 mls @ 250 mls/hr IV CONT NIDIA Last Infusion: 05/04/22 20:15 Dose: 0 mls/hr Documented By: Infusion: 05/04/22 19:55 Dose: 0 mls/hr Documented By: Infusion: 05/04/22 19:18 Dose: 999 mls/hr Documented By: ANN MARIE Admin: 05/04/22 18:03 Dose: 250 mls/hr Documented By: ANN MARIE Morphine Sulfate (Morphine 4 Mg/Ml Inj) 4 mg IV NOW ONE Stop: 05/04/22 16:10 Last Admin: 05/04/22 16:19 Dose: 4 mg Documented By: PRAKASH Pantoprazole Sodium (Pantoprazole 40 Mg Vial) 40 mg IV NOW ONE Stop: 05/04/22 20:38 Last Admin: 05/04/22 20:40 Dose: 40 mg Documented By: YONATHAN Vital Signs Vital signs: Vital Signs - 8 hr 05/04/22 20:17 05/04/22 20:17 05/04/22 20:20 Temperature 96.4 F L 96.4 F L Pulse Rate 101 H 100 H Respiratory Rate 24 23 Blood Pressure 90/61 Pulse Oximetry 96 97 Oxygen Delivery Method Room Air Room Air 05/04/22 20:21 05/04/22 20:21 05/04/22 20:25 Temperature 96.4 F L Pulse Rate 100 H Respiratory Rate 22 Blood Pressure 90/53 L 101/62 Pulse Oximetry 96 Oxygen Delivery Method Room Air 05/04/22 20:25 05/04/22 20:30 05/04/22 20:30 Temperature 96.6 F L 96.8 F L Pulse Rate 101 H 101 H Respiratory Rate 26 H 23 Blood Pressure 96/54 L Pulse Oximetry 98 98 Oxygen Delivery Method Room Air 05/04/22 20:35 05/04/22 20:35 05/04/22 20:40 Temperature 96.8 F L Pulse Rate 100 H Respiratory Rate 25 H Blood Pressure 97/57 L 102/65 Pulse Oximetry 98 Oxygen Delivery Method Room Air 05/04/22 20:40 05/04/22 20:56 05/04/22 21:00 Temperature 96.8 F L 97.0 F L Pulse Rate 100 H 93 H Respiratory Rate 21 Blood Pressure Pulse Oximetry 96 98 98 Oxygen Delivery Method Room Air Room Air Room Air 05/04/22 21:02 05/04/22 21:02 05/04/22 21:05 Temperature 97.2 F L Pulse Rate 104 H Respiratory Rate Blood Pressure 105/70 106/64 Pulse Oximetry 98 Oxygen Delivery Method Room Air 05/04/22 21:05 05/04/22 21:10 05/04/22 21:10 Temperature 97.2 F L 97.3 F L Pulse Rate 104 H 103 H Respiratory Rate Blood Pressure 100/62 Pulse Oximetry 97 Oxygen Delivery Method Room Air 05/04/22 21:15 05/04/22 21:15 05/04/22 21:40 Temperature 97.3 F L 97.3 F L Pulse Rate 104 H 104 H Respiratory Rate 17 Blood Pressure 100/67 Pulse Oximetry 98 94 Oxygen Delivery Method Room Air 05/04/22 21:45 05/04/22 21:45 05/04/22 21:50 Temperature 97.5 F L Pulse Rate 104 H Respiratory Rate 20 Blood Pressure 93/62 94/66 Pulse Oximetry 94 Oxygen Delivery Method 05/04/22 21:50 05/04/22 21:55 05/04/22 21:55 Temperature 97.5 F L 97.5 F L Pulse Rate 103 H 104 H Respiratory Rate 15 15 Blood Pressure 93/62 Pulse Oximetry 100 100 Oxygen Delivery Method 05/04/22 22:00 05/04/22 22:00 05/04/22 22:05 Temperature 97.5 F L Pulse Rate 102 H Respiratory Rate 14 Blood Pressure 94/63 94/63 Pulse Oximetry 100 Oxygen Delivery Method 05/04/22 22:05 05/04/22 22:10 05/04/22 22:10 Temperature 97.5 F L 97.5 F L Pulse Rate 103 H 103 H Respiratory Rate 17 20 Blood Pressure 98/64 Pulse Oximetry 99 100 Oxygen Delivery Method 05/04/22 22:15 05/04/22 22:15 05/04/22 22:20 Temperature 97.5 F L Pulse Rate 104 H Respiratory Rate 19 Blood Pressure 96/62 96/64 Pulse Oximetry 100 Oxygen Delivery Method 05/04/22 22:20 05/04/22 22:25 05/04/22 22:25 Temperature 97.5 F L 97.5 F L Pulse Rate 103 H 104 H Respiratory Rate 18 19 Blood Pressure 100/64 Pulse Oximetry 100 100 Oxygen Delivery Method 05/04/22 22:30 05/04/22 22:30 05/04/22 22:35 Temperature 97.5 F L Pulse Rate 103 H Respiratory Rate 15 Blood Pressure 97/61 89/51 L Pulse Oximetry 100 Oxygen Delivery Method 05/04/22 22:35 05/04/22 22:40 05/04/22 22:40 Temperature 97.5 F L 97.5 F L Pulse Rate 103 H 104 H Respiratory Rate 14 16 Blood Pressure 92/53 L Pulse Oximetry 100 93 Oxygen Delivery Method 05/04/22 22:45 05/04/22 22:45 05/04/22 22:50 Temperature 97.5 F L 97.5 F L Pulse Rate 104 H 105 H Respiratory Rate 18 24 Blood Pressure 91/53 L Pulse Oximetry 100 77 L Oxygen Delivery Method 05/04/22 22:51 05/04/22 22:51 05/04/22 22:55 Temperature 97.5 F L Pulse Rate 102 H Respiratory Rate 17 Blood Pressure 119/68 90/55 L Pulse Oximetry 100 Oxygen Delivery Method 05/04/22 22:55 05/04/22 23:00 05/04/22 23:00 Temperature 97.5 F L 97.5 F L Pulse Rate 102 H 103 H Respiratory Rate 18 17 Blood Pressure 92/60 Pulse Oximetry 100 100 Oxygen Delivery Method 05/04/22 23:05 05/04/22 23:05 05/04/22 23:10 Temperature 97.5 F L Pulse Rate 104 H Respiratory Rate 19 Blood Pressure 91/60 91/61 Pulse Oximetry 98 Oxygen Delivery Method 05/04/22 23:10 05/04/22 23:15 05/04/22 23:15 Temperature 97.7 F 97.7 F Pulse Rate 102 H 103 H Respiratory Rate 17 18 Blood Pressure 91/56 L Pulse Oximetry 73 L 68 L Oxygen Delivery Method 05/04/22 23:20 05/04/22 23:21 05/04/22 23:21 Temperature 97.7 F 97.7 F Pulse Rate 106 H 103 H Respiratory Rate 24 22 Blood Pressure 94/65 Pulse Oximetry 90 L 81 L Oxygen Delivery Method 05/04/22 23:25 05/04/22 23:25 05/04/22 23:30 Temperature 97.7 F Pulse Rate 103 H Respiratory Rate 17 Blood Pressure 101/61 105/61 Pulse Oximetry 91 Oxygen Delivery Method 05/04/22 23:30 05/04/22 23:35 05/04/22 23:36 Temperature 97.7 F 97.7 F Pulse Rate 103 H 104 H Respiratory Rate 16 23 Blood Pressure 93/68 Pulse Oximetry 98 99 Oxygen Delivery Method 05/04/22 23:36 05/04/22 23:40 05/04/22 23:40 Temperature 97.7 F 97.7 F Pulse Rate 108 H 107 H Respiratory Rate 31 H 23 Blood Pressure 100/70 Pulse Oximetry 97 98 Oxygen Delivery Method 05/04/22 23:45 05/04/22 23:46 05/04/22 23:46 Temperature 97.7 F 97.7 F Pulse Rate 109 H 108 H Respiratory Rate 34 H 31 H Blood Pressure 108/72 Pulse Oximetry 100 99 Oxygen Delivery Method 05/04/22 23:50 05/04/22 23:50 05/04/22 23:55 Temperature 97.7 F Pulse Rate 106 H Respiratory Rate 37 H Blood Pressure 101/72 98/69 Pulse Oximetry 100 Oxygen Delivery Method 05/04/22 23:55 05/05/22 00:00 05/05/22 00:00 Temperature 97.9 F 97.9 F Pulse Rate 104 H 104 H Respiratory Rate 18 17 Blood Pressure 101/67 Pulse Oximetry 97 100 Oxygen Delivery Method 05/05/22 00:05 05/05/22 00:05 05/05/22 00:10 Temperature 97.9 F Pulse Rate 106 H Respiratory Rate 17 Blood Pressure 101/68 105/68 Pulse Oximetry 98 Oxygen Delivery Method 05/05/22 00:10 05/05/22 00:15 05/05/22 00:15 Temperature 97.9 F 98.1 F Pulse Rate 106 H 108 H Respiratory Rate 19 19 Blood Pressure 101/68 Pulse Oximetry 100 100 Oxygen Delivery Method 05/05/22 00:20 05/05/22 00:20 05/05/22 00:25 Temperature 98.1 F Pulse Rate 108 H Respiratory Rate 23 Blood Pressure 105/69 102/65 Pulse Oximetry 99 Oxygen Delivery Method 05/05/22 00:25 05/05/22 00:30 05/05/22 00:31 Temperature 98.1 F 98.1 F Pulse Rate 108 H 109 H Respiratory Rate 20 25 H Blood Pressure 99/66 Pulse Oximetry 99 99 Oxygen Delivery Method 05/05/22 00:31 05/05/22 00:35 05/05/22 00:35 Temperature 98.1 F 98.1 F Pulse Rate 109 H 106 H Respiratory Rate 25 H 25 H Blood Pressure 98/64 Pulse Oximetry 100 99 Oxygen Delivery Method 05/05/22 00:40 05/05/22 00:41 05/05/22 00:41 Temperature 98.1 F 98.1 F Pulse Rate 105 H 104 H Respiratory Rate 23 24 Blood Pressure 106/70 Pulse Oximetry 98 100 Oxygen Delivery Method 05/05/22 00:45 05/05/22 00:45 05/05/22 00:50 Temperature 98.1 F Pulse Rate 104 H Respiratory Rate 34 H Blood Pressure 119/80 97/71 Pulse Oximetry 76 L Oxygen Delivery Method 05/05/22 00:50 05/05/22 00:55 05/05/22 00:55 Temperature 98.1 F 98.1 F Pulse Rate 104 H 104 H Respiratory Rate 20 23 Blood Pressure 102/66 Pulse Oximetry 94 98 Oxygen Delivery Method 05/05/22 01:00 05/05/22 01:00 05/05/22 01:05 Temperature 98.1 F Pulse Rate 104 H Respiratory Rate 21 Blood Pressure 100/59 L 97/62 Pulse Oximetry 97 Oxygen Delivery Method 05/05/22 01:05 05/05/22 01:10 05/05/22 01:11 Temperature 98.2 F 98.2 F Pulse Rate 105 H 105 H Respiratory Rate 20 19 Blood Pressure 100/68 Pulse Oximetry 97 97 Oxygen Delivery Method 05/05/22 01:11 Temperature 98.2 F Pulse Rate 104 H Respiratory Rate 18 Blood Pressure Pulse Oximetry 97 Oxygen Delivery Method <Marvin Lundberg DO - Last Filed: 05/05/22 04:33> Orders Ordered: Acetaminophen (Acetaminophen 325 Mg Tablet) 650 mg PO Q6H PRN PRN Reason: Fever/Mild Pain (1-3) Hydrocodone Bitart/Acetaminophen (Hydrocodone/Acet 5/325 Tablet) 1 tab PO Q4H PRN PRN Reason: Pain, Moderate (4-6) Last Admin: 05/05/22 03:13 Dose: 1 tab Documented By: JAMEL Duloxetine HCl (Duloxetine 30 Mg Capsule) 30 mg PO DAILY [facility] Enoxaparin Sodium (Enoxaparin 40 Mg/0.4 Ml Syringe) 40 mg SUBCUT DAILY [facility] Hydromorphone HCl (Hydromorphone 1 Mg Inj) 1 mg IV Q4H PRN PRN Reason: Pain, Severe (7-10) Piperacillin Sod/Tazobactam (Sod 3.375 gm/ Sodium Chloride) 100 mls @ 25 mls/hr IV Q8H [facility] Last Admin: 05/05/22 03:26 Dose: 25 mls/hr Documented By: [facility] Dextrose/Sodium Chloride (Dextrose 5%-0.45% Ns) 1,000 mls @ 100 mls/hr IV CONT [facility] Last Admin: 05/05/22 03:27 Dose: 100 mls/hr Documented By: JAMEL Lactated Ringer's (Lactated Ringers) 1,000 mls @ 200 mls/hr IV CONT [facility] Levothyroxine Sodium (Levothyroxine 112 Mcg Tablet) 112 mcg PO 0600 [facility] Naloxone HCl (Naloxone 0.4 Mg/Ml Vial) 0.2 mg IV Q2MIN PRN PRN Reason: Opiate Reversal Pantoprazole Sodium (Pantoprazole 40 Mg Vial) 40 mg IV DAILY [facility] Paroxetine HCl (Paroxetine 20 Mg Tablet) 10 mg PO DAILY [facility] Discontinued Medications Sodium Chloride (Normal Saline 0.9%) 1,000 mls @ 1,000 mls/hr IV BOLUS ONE Stop: 05/04/22 16:25 Last Infusion: 05/04/22 18:02 Dose: 0 mls/hr Documented By: Admin: 05/04/22 16:19 Dose: 1,000 mls/hr Documented By: PRAKASH Sodium Chloride (Normal Saline 0.9%) 1,000 mls @ 1,000 mls/hr IV BOLUS ONE Stop: 05/04/22 17:03 Last Infusion: 05/04/22 17:01 Dose: 0 mls/hr Documented By: ANN MARIE Infusion: 05/04/22 17:00 Dose: 0 mls/hr Documented By: ANN MARIE Admin: 05/04/22 16:19 Dose: 1,000 mls/hr Documented By: PRAKASH Metronidazole (Flagyl) 500 mg in 100 mls @ 100 mls/hr IV NOW ONE Stop: 05/04/22 17:41 Last Infusion: 05/04/22 18:46 Dose: 0 mls/hr Documented By: ANN MARIE Admin: 05/04/22 17:41 Dose: 100 mls/hr Documented By: GALINDO Vancomycin HCl (Vancomycin) 1,000 mg in 200 mls @ 200 mls/hr IV NOW ONE Stop: 05/04/22 17:43 Last Infusion: 05/04/22 19:50 Dose: 0 mls/hr Documented By: Admin: 05/04/22 18:49 Dose: 200 mls/hr Documented By: ANN MARIE Piperacillin Sod/Tazobactam (Sod 4.5 gm/ Sodium Chloride) 100 mls @ 200 mls/hr IV NOW ONE Stop: 05/04/22 16:45 Last Infusion: 05/04/22 17:40 Dose: 0 mls/hr Documented By: Admin: 05/04/22 16:58 Dose: 200 mls/hr Documented By: ANN MARIE Sodium Chloride (Normal Saline 0.9%) 1,000 mls @ 250 mls/hr IV CONT NIDIA Last Admin: 05/04/22 17:35 Dose: Not Given Documented By: GALINDO Sodium Chloride (Normal Saline 0.9%) 1,000 mls @ 1,000 mls/hr IV BOLUS ONE Stop: 05/04/22 18:03 Last Infusion: 05/04/22 18:53 Dose: 0 mls/hr Documented By: ANN MARIE Admin: 05/04/22 17:35 Dose: 1,000 mls/hr Documented By: GALINDO Lactated Ringer's (Lactated Ringers) 1,000 mls @ 250 mls/hr IV CONT NIDIA Last Infusion: 05/04/22 20:15 Dose: 0 mls/hr Documented By: Infusion: 05/04/22 19:55 Dose: 0 mls/hr Documented By: Infusion: 05/04/22 19:18 Dose: 999 mls/hr Documented By: ANN MARIE Admin: 05/04/22 18:03 Dose: 250 mls/hr Documented By: ANN MARIE Morphine Sulfate (Morphine 4 Mg/Ml Inj) 4 mg IV NOW ONE Stop: 05/04/22 16:10 Last Admin: 05/04/22 16:19 Dose: 4 mg Documented By: PRAKASH Pantoprazole Sodium (Pantoprazole 40 Mg Vial) 40 mg IV NOW ONE Stop: 05/04/22 20:38 Last Admin: 05/04/22 20:40 Dose: 40 mg Documented By: YONATHAN Vital Signs Vital signs: Vital Signs - 8 hr 05/04/22 20:17 05/04/22 20:17 05/04/22 20:20 Temperature 96.4 F L 96.4 F L Pulse Rate 101 H 100 H Respiratory Rate 24 23 Blood Pressure 90/61 Pulse Oximetry 96 97 Oxygen Delivery Method Room Air Room Air 05/04/22 20:21 05/04/22 20:21 05/04/22 20:25 Temperature 96.4 F L Pulse Rate 100 H Respiratory Rate 22 Blood Pressure 90/53 L 101/62 Pulse Oximetry 96 Oxygen Delivery Method Room Air 05/04/22 20:25 05/04/22 20:30 05/04/22 20:30 Temperature 96.6 F L 96.8 F L Pulse Rate 101 H 101 H Respiratory Rate 26 H 23 Blood Pressure 96/54 L Pulse Oximetry 98 98 Oxygen Delivery Method Room Air 05/04/22 20:35 05/04/22 20:35 05/04/22 20:40 Temperature 96.8 F L Pulse Rate 100 H Respiratory Rate 25 H Blood Pressure 97/57 L 102/65 Pulse Oximetry 98 Oxygen Delivery Method Room Air 05/04/22 20:40 05/04/22 20:56 05/04/22 21:00 Temperature 96.8 F L 97.0 F L Pulse Rate 100 H 93 H Respiratory Rate 21 Blood Pressure Pulse Oximetry 96 98 98 Oxygen Delivery Method Room Air Room Air Room Air 05/04/22 21:02 05/04/22 21:02 05/04/22 21:05 Temperature 97.2 F L Pulse Rate 104 H Respiratory Rate Blood Pressure 105/70 106/64 Pulse Oximetry 98 Oxygen Delivery Method Room Air 05/04/22 21:05 05/04/22 21:10 05/04/22 21:10 Temperature 97.2 F L 97.3 F L Pulse Rate 104 H 103 H Respiratory Rate Blood Pressure 100/62 Pulse Oximetry 97 Oxygen Delivery Method Room Air 05/04/22 21:15 05/04/22 21:15 05/04/22 21:40 Temperature 97.3 F L 97.3 F L Pulse Rate 104 H 104 H Respiratory Rate 17 Blood Pressure 100/67 Pulse Oximetry 98 94 Oxygen Delivery Method Room Air 05/04/22 21:45 05/04/22 21:45 05/04/22 21:50 Temperature 97.5 F L Pulse Rate 104 H Respiratory Rate 20 Blood Pressure 93/62 94/66 Pulse Oximetry 94 Oxygen Delivery Method 05/04/22 21:50 05/04/22 21:55 05/04/22 21:55 Temperature 97.5 F L 97.5 F L Pulse Rate 103 H 104 H Respiratory Rate 15 15 Blood Pressure 93/62 Pulse Oximetry 100 100 Oxygen Delivery Method 05/04/22 22:00 05/04/22 22:00 05/04/22 22:05 Temperature 97.5 F L Pulse Rate 102 H Respiratory Rate 14 Blood Pressure 94/63 94/63 Pulse Oximetry 100 Oxygen Delivery Method 05/04/22 22:05 05/04/22 22:10 05/04/22 22:10 Temperature 97.5 F L 97.5 F L Pulse Rate 103 H 103 H Respiratory Rate 17 20 Blood Pressure 98/64 Pulse Oximetry 99 100 Oxygen Delivery Method 05/04/22 22:15 05/04/22 22:15 05/04/22 22:20 Temperature 97.5 F L Pulse Rate 104 H Respiratory Rate 19 Blood Pressure 96/62 96/64 Pulse Oximetry 100 Oxygen Delivery Method 05/04/22 22:20 05/04/22 22:25 05/04/22 22:25 Temperature 97.5 F L 97.5 F L Pulse Rate 103 H 104 H Respiratory Rate 18 19 Blood Pressure 100/64 Pulse Oximetry 100 100 Oxygen Delivery Method 05/04/22 22:30 05/04/22 22:30 05/04/22 22:35 Temperature 97.5 F L Pulse Rate 103 H Respiratory Rate 15 Blood Pressure 97/61 89/51 L Pulse Oximetry 100 Oxygen Delivery Method 05/04/22 22:35 05/04/22 22:40 05/04/22 22:40 Temperature 97.5 F L 97.5 F L Pulse Rate 103 H 104 H Respiratory Rate 14 16 Blood Pressure 92/53 L Pulse Oximetry 100 93 Oxygen Delivery Method 05/04/22 22:45 05/04/22 22:45 05/04/22 22:50 Temperature 97.5 F L 97.5 F L Pulse Rate 104 H 105 H Respiratory Rate 18 24 Blood Pressure 91/53 L Pulse Oximetry 100 77 L Oxygen Delivery Method 05/04/22 22:51 05/04/22 22:51 05/04/22 22:55 Temperature 97.5 F L Pulse Rate 102 H Respiratory Rate 17 Blood Pressure 119/68 90/55 L Pulse Oximetry 100 Oxygen Delivery Method 05/04/22 22:55 05/04/22 23:00 05/04/22 23:00 Temperature 97.5 F L 97.5 F L Pulse Rate 102 H 103 H Respiratory Rate 18 17 Blood Pressure 92/60 Pulse Oximetry 100 100 Oxygen Delivery Method 05/04/22 23:05 05/04/22 23:05 05/04/22 23:10 Temperature 97.5 F L Pulse Rate 104 H Respiratory Rate 19 Blood Pressure 91/60 91/61 Pulse Oximetry 98 Oxygen Delivery Method 05/04/22 23:10 05/04/22 23:15 05/04/22 23:15 Temperature 97.7 F 97.7 F Pulse Rate 102 H 103 H Respiratory Rate 17 18 Blood Pressure 91/56 L Pulse Oximetry 73 L 68 L Oxygen Delivery Method 05/04/22 23:20 05/04/22 23:21 05/04/22 23:21 Temperature 97.7 F 97.7 F Pulse Rate 106 H 103 H Respiratory Rate 24 22 Blood Pressure 94/65 Pulse Oximetry 90 L 81 L Oxygen Delivery Method 05/04/22 23:25 05/04/22 23:25 05/04/22 23:30 Temperature 97.7 F Pulse Rate 103 H Respiratory Rate 17 Blood Pressure 101/61 105/61 Pulse Oximetry 91 Oxygen Delivery Method 05/04/22 23:30 05/04/22 23:35 05/04/22 23:36 Temperature 97.7 F 97.7 F Pulse Rate 103 H 104 H Respiratory Rate 16 23 Blood Pressure 93/68 Pulse Oximetry 98 99 Oxygen Delivery Method 05/04/22 23:36 05/04/22 23:40 05/04/22 23:40 Temperature 97.7 F 97.7 F Pulse Rate 108 H 107 H Respiratory Rate 31 H 23 Blood Pressure 100/70 Pulse Oximetry 97 98 Oxygen Delivery Method 05/04/22 23:45 05/04/22 23:46 05/04/22 23:46 Temperature 97.7 F 97.7 F Pulse Rate 109 H 108 H Respiratory Rate 34 H 31 H Blood Pressure 108/72 Pulse Oximetry 100 99 Oxygen Delivery Method 05/04/22 23:50 05/04/22 23:50 05/04/22 23:55 Temperature 97.7 F Pulse Rate 106 H Respiratory Rate 37 H Blood Pressure 101/72 98/69 Pulse Oximetry 100 Oxygen Delivery Method 05/04/22 23:55 05/05/22 00:00 05/05/22 00:00 Temperature 97.9 F 97.9 F Pulse Rate 104 H 104 H Respiratory Rate 18 17 Blood Pressure 101/67 Pulse Oximetry 97 100 Oxygen Delivery Method 05/05/22 00:05 05/05/22 00:05 05/05/22 00:10 Temperature 97.9 F Pulse Rate 106 H Respiratory Rate 17 Blood Pressure 101/68 105/68 Pulse Oximetry 98 Oxygen Delivery Method 05/05/22 00:10 05/05/22 00:15 05/05/22 00:15 Temperature 97.9 F 98.1 F Pulse Rate 106 H 108 H Respiratory Rate 19 19 Blood Pressure 101/68 Pulse Oximetry 100 100 Oxygen Delivery Method 05/05/22 00:20 05/05/22 00:20 05/05/22 00:25 Temperature 98.1 F Pulse Rate 108 H Respiratory Rate 23 Blood Pressure 105/69 102/65 Pulse Oximetry 99 Oxygen Delivery Method 05/05/22 00:25 05/05/22 00:30 05/05/22 00:31 Temperature 98.1 F 98.1 F Pulse Rate 108 H 109 H Respiratory Rate 20 25 H Blood Pressure 99/66 Pulse Oximetry 99 99 Oxygen Delivery Method 05/05/22 00:31 05/05/22 00:35 05/05/22 00:35 Temperature 98.1 F 98.1 F Pulse Rate 109 H 106 H Respiratory Rate 25 H 25 H Blood Pressure 98/64 Pulse Oximetry 100 99 Oxygen Delivery Method 05/05/22 00:40 05/05/22 00:41 05/05/22 00:41 Temperature 98.1 F 98.1 F Pulse Rate 105 H 104 H Respiratory Rate 23 24 Blood Pressure 106/70 Pulse Oximetry 98 100 Oxygen Delivery Method 05/05/22 00:45 05/05/22 00:45 05/05/22 00:50 Temperature 98.1 F Pulse Rate 104 H Respiratory Rate 34 H Blood Pressure 119/80 97/71 Pulse Oximetry 76 L Oxygen Delivery Method 05/05/22 00:50 05/05/22 00:55 05/05/22 00:55 Temperature 98.1 F 98.1 F Pulse Rate 104 H 104 H Respiratory Rate 20 23 Blood Pressure 102/66 Pulse Oximetry 94 98 Oxygen Delivery Method 05/05/22 01:00 05/05/22 01:00 05/05/22 01:05 Temperature 98.1 F Pulse Rate 104 H Respiratory Rate 21 Blood Pressure 100/59 L 97/62 Pulse Oximetry 97 Oxygen Delivery Method 05/05/22 01:05 05/05/22 01:10 05/05/22 01:11 Temperature 98.2 F 98.2 F Pulse Rate 105 H 105 H Respiratory Rate 20 19 Blood Pressure 100/68 Pulse Oximetry 97 97 Oxygen Delivery Method 05/05/22 01:11 Temperature 98.2 F Pulse Rate 104 H Respiratory Rate 18 Blood Pressure Pulse Oximetry 97 Oxygen Delivery Method Medical Decision Making <Braulio Reed, DO - Last Filed: 05/04/22 18:35> Lab Data Lab results reviewed: Yes I reviewed the patient's lab results. Result diagrams: 05/04/22 18:55 05/04/22 18:55 Labs: Lab Results 05/04/22 05/04/22 05/04/22 Range/Units 15:32 15:51 15:51 WBC 31.4 H* (4.5-11.0) X10^3/uL RBC 4.28 (4.0-5.2) X10^6/uL Hgb 13.4 (12.0-16.0) g/dL Hct 40.0 (36-46) % MCV 93.4 (80-100) fL MCH 31.3 (26-34) PG MCHC 33.6 (30-36) % RDW 13.3 (11.6-14.8) % Plt Count 704 H (150-400) X10^3/uL Neut % (Auto) Not Reportable Lymph % (Auto) Not Reportable [place] % (Auto) Not Reportable Eos % (Auto) Not Reportable Baso % (Auto) Not Reportable Lymph # (Auto) Not Reportable [place] # (Auto) Not Reportable Baso # (Auto) Not Reportable Total Counted 100 Seg Neutrophils % 60.0 (38-70) % Band Neutrophils % 15.0 H (3-7) % Lymphocytes % (Manual) 17.0 L (25-45) % Atypical Lymphs % 3.0 H ( - 0) % Monocytes % (Manual) 2.0 (2-11) % Eosinophils % (Manual) 1.0 L (2-4) % Metamyelocytes % 2.0 H (-0) % Neutrophils # (Manual) 95770 H (4552-6493) /uL RBC Morphology Normal morphology Sodium 131 L (137-145) mmol/L Potassium 3.3 L (3.4-5.1) mmol/L Chloride 96 L (98-107) mmol/L Carbon Dioxide 15 L (22-32) mmol/L BUN 115 H* (7-17) mg/dL Creatinine 2.37 H (0.52-1.04) mg/dL Estimated GFR 24 L (>60) mL/min BUN/Creatinine Ratio 48.5 H (6-22) Glucose 91 (70-100) mg/dL Lactate (0.7-2.1) mmol/L Calcium 8.8 (8.4-10.2) mg/dL Total Bilirubin 0.3 (0.2-1.3) mg/dL AST 24 (14-36) IU/L ALT 25 (<35) IU/L Alkaline Phosphatase 133 H (38-126) U/L Total Protein 7.6 (6.3-8.2) g/dL Albumin 3.8 (3.5-5.0) g/dL Globulin 3.8 (1.7-4.1) g/dL Albumin/Globulin Ratio 1.0 (1.0-2.8) Lipase 600 H (23-300) U/L Procalcitonin (<0.5) ng/mL Urine Color Yellow Urine Appearance Cloudy Urine pH 5.0 (4.5-8.0) Ur Specific [place] 1.020 (1.000-1.035) Urine Protein 1+ H (Negative) Urine Glucose (UA) Negative (Negative) g/dL Urine Ketones Negative (NEGATIVE) Urine Occult Blood 3+ H (Negative) Urine Nitrate Negative (Negative) Urine Bilirubin Negative (NEGATIVE) Urine Urobilinogen 0.2 (0.2) E.U./dL Ur Leukocyte Esterase 2+ H (NEGATIVE) Urine RBC 5-10/hpf H (0-5/HPF) Urine WBC 30-100/hpf H (0-5/HPF) Ur Squamous Epith Cells 1-5 /hpf D (0-5/HPF) Amorphous Sediment 1+ Urine Bacteria Many (>30) H (None) Ur Culture Indicated? Specimen cultured Stl C. cayetanensis PCR (Not Detect) Stool Rotavirus (PCR) (Not Detect) Stool Adenovirus (PCR) (Not Detect) Stool Astrovirus (PCR) (Not Detect) Stool Cryptosporidium PCR (Not Detect) Stl E.coli Shiga Tox PCR (Not Detect) St Sh/Enteroin Ecoli PCR (Not Detect) Stool E coli O157 PCR (Not Detect) Stl Enterotoxigenic E PCR (Not Detect) Stool EPEC (PCR) (Not Detect) Stl E. histolytica PCR (Not Detect) Stool Giardia Lamblia PCR (Not Detect) Stool Sapovirus (PCR) (Not Detect) Stl P. shigelloides PCR (Not Detect) St Y.enterocolitica PCR (Not Detect) Stool Vibrio (PCR) (Not Detect) Stl Vibrio cholerae PCR (Not Detect) Stl Enteroaggr Ecoli PCR (Not Detect) Stl Norovirus GI/GII PCR (Not Detect) Campylobacter (PCR) (Not Detect) C. difficile Tox (PCR) (Not Detect) SARS-CoV-2 (PCR) (Negative) Influenza A (RT-PCR) (NEGATIVE) Influenza B (RT-PCR) (NEGATIVE) RSV (PCR) (Negative) Salmonella (PCR) (Not Detect) 05/04/22 05/04/22 05/04/22 Range/Units 15:51 15:51 16:04 WBC (4.5-11.0) X10^3/uL RBC (4.0-5.2) X10^6/uL Hgb (12.0-16.0) g/dL Hct (36-46) % MCV (80-100) fL MCH (26-34) PG MCHC (30-36) % RDW (11.6-14.8) % Plt Count (150-400) X10^3/uL Neut % (Auto) Lymph % (Auto) [place] % (Auto) Eos % (Auto) Baso % (Auto) Lymph # (Auto) [place] # (Auto) Baso # (Auto) Total Counted Seg Neutrophils % (38-70) % Band Neutrophils % (3-7) % Lymphocytes % (Manual) (25-45) % Atypical Lymphs % ( - 0) % Monocytes % (Manual) (2-11) % Eosinophils % (Manual) (2-4) % Metamyelocytes % (-0) % Neutrophils # (Manual) (1984-2631) /uL RBC Morphology Sodium (137-145) mmol/L Potassium (3.4-5.1) mmol/L Chloride (98-107) mmol/L Carbon Dioxide (22-32) mmol/L BUN (7-17) mg/dL Creatinine (0.52-1.04) mg/dL Estimated GFR (>60) mL/min BUN/Creatinine Ratio (6-22) Glucose (70-100) mg/dL Lactate 1.8 (0.7-2.1) mmol/L Calcium (8.4-10.2) mg/dL Total Bilirubin (0.2-1.3) mg/dL AST (14-36) IU/L ALT (<35) IU/L Alkaline Phosphatase (38-126) U/L Total Protein (6.3-8.2) g/dL Albumin (3.5-5.0) g/dL Globulin (1.7-4.1) g/dL Albumin/Globulin Ratio (1.0-2.8) Lipase (23-300) U/L Procalcitonin 4.14 H (<0.5) ng/mL Urine Color Urine Appearance Urine pH (4.5-8.0) Ur Specific [place] (1.000-1.035) Urine Protein (Negative) Urine Glucose (UA) (Negative) g/dL Urine Ketones (NEGATIVE) Urine Occult Blood (Negative) Urine Nitrate (Negative) Urine Bilirubin (NEGATIVE) Urine Urobilinogen (0.2) E.U./dL Ur Leukocyte Esterase (NEGATIVE) Urine RBC (0-5/HPF) Urine WBC (0-5/HPF) Ur Squamous Epith Cells (0-5/HPF) Amorphous Sediment Urine Bacteria (None) Ur Culture Indicated? Stl C. cayetanensis PCR Not detected (Not Detect) Stool Rotavirus (PCR) Not detected (Not Detect) Stool Adenovirus (PCR) Not detected (Not Detect) Stool Astrovirus (PCR) Not detected (Not Detect) Stool Cryptosporidium PCR Not detected (Not Detect) Stl E.coli Shiga Tox PCR Not detected (Not Detect) St Sh/Enteroin Ecoli PCR Not detected (Not Detect) Stool E coli O157 PCR Not detected (Not Detect) Stl Enterotoxigenic E PCR Not detected (Not Detect) Stool EPEC (PCR) Not detected (Not Detect) Stl E. histolytica PCR Not detected (Not Detect) Stool Giardia Lamblia PCR Not detected (Not Detect) Stool Sapovirus (PCR) Not detected (Not Detect) Stl P. shigelloides PCR Not detected (Not Detect) St Y.enterocolitica PCR Not detected (Not Detect) Stool Vibrio (PCR) Not detected (Not Detect) Stl Vibrio cholerae PCR Not detected (Not Detect) Stl Enteroaggr Ecoli PCR Not detected (Not Detect) Stl Norovirus GI/GII PCR Not detected (Not Detect) Campylobacter (PCR) Not detected (Not Detect) C. difficile Tox (PCR) Not detected (Not Detect) SARS-CoV-2 (PCR) (Negative) Influenza A (RT-PCR) (NEGATIVE) Influenza B (RT-PCR) (NEGATIVE) RSV (PCR) (Negative) Salmonella (PCR) Not detected (Not Detect) 05/04/22 05/04/22 05/04/22 Range/Units 16:05 18:55 18:55 WBC (4.5-11.0) X10^3/uL RBC (4.0-5.2) X10^6/uL Hgb 11.6 L (12.0-16.0) g/dL Hct 34.5 L (36-46) % MCV (80-100) fL MCH (26-34) PG MCHC (30-36) % RDW (11.6-14.8) % Plt Count (150-400) X10^3/uL Neut % (Auto) Lymph % (Auto) [place] % (Auto) Eos % (Auto) Baso % (Auto) Lymph # (Auto) [place] # (Auto) Baso # (Auto) Total Counted Seg Neutrophils % (38-70) % Band Neutrophils % (3-7) % Lymphocytes % (Manual) (25-45) % Atypical Lymphs % ( - 0) % Monocytes % (Manual) (2-11) % Eosinophils % (Manual) (2-4) % Metamyelocytes % (-0) % Neutrophils # (Manual) (6604-8117) /uL RBC Morphology Sodium 132 L (137-145) mmol/L Potassium 4.5 D (3.4-5.1) mmol/L Chloride 103 (98-107) mmol/L Carbon Dioxide 13 L (22-32) mmol/L BUN 107 H* (7-17) mg/dL Creatinine 1.92 H (0.52-1.04) mg/dL Estimated GFR 30 L (>60) mL/min BUN/Creatinine Ratio 55.7 H (6-22) Glucose 84 (70-100) mg/dL Lactate (0.7-2.1) mmol/L Calcium 7.2 L (8.4-10.2) mg/dL Total Bilirubin 0.5 (0.2-1.3) mg/dL AST 26 (14-36) IU/L ALT 21 (<35) IU/L Alkaline Phosphatase 106 (38-126) U/L Total Protein 6.2 L (6.3-8.2) g/dL Albumin 2.9 L (3.5-5.0) g/dL Globulin 3.3 (1.7-4.1) g/dL Albumin/Globulin Ratio 0.9 L (1.0-2.8) Lipase (23-300) U/L Procalcitonin 2.50 H (<0.5) ng/mL Urine Color Urine Appearance Urine pH (4.5-8.0) Ur Specific [place] (1.000-1.035) Urine Protein (Negative) Urine Glucose (UA) (Negative) g/dL Urine Ketones (NEGATIVE) Urine Occult Blood (Negative) Urine Nitrate (Negative) Urine Bilirubin (NEGATIVE) Urine Urobilinogen (0.2) E.U./dL Ur Leukocyte Esterase (NEGATIVE) Urine RBC (0-5/HPF) Urine WBC (0-5/HPF) Ur Squamous Epith Cells (0-5/HPF) Amorphous Sediment Urine Bacteria (None) Ur Culture Indicated? Stl C. cayetanensis PCR (Not Detect) Stool Rotavirus (PCR) (Not Detect) Stool Adenovirus (PCR) (Not Detect) Stool Astrovirus (PCR) (Not Detect) Stool Cryptosporidium PCR (Not Detect) Stl E.coli Shiga Tox PCR (Not Detect) St Sh/Enteroin Ecoli PCR (Not Detect) Stool E coli O157 PCR (Not Detect) Stl Enterotoxigenic E PCR (Not Detect) Stool EPEC (PCR) (Not Detect) Stl E. histolytica PCR (Not Detect) Stool Giardia Lamblia PCR (Not Detect) Stool Sapovirus (PCR) (Not Detect) Stl P. shigelloides PCR (Not Detect) St Y.enterocolitica PCR (Not Detect) Stool Vibrio (PCR) (Not Detect) Stl Vibrio cholerae PCR (Not Detect) Stl Enteroaggr Ecoli PCR (Not Detect) Stl Norovirus GI/GII PCR (Not Detect) Campylobacter (PCR) (Not Detect) C. difficile Tox (PCR) (Not Detect) SARS-CoV-2 (PCR) Negative (Negative) Influenza A (RT-PCR) Flu a negative (NEGATIVE) Influenza B (RT-PCR) Flu b negative (NEGATIVE) RSV (PCR) Negative (Negative) Salmonella (PCR) (Not Detect) 05/04/22 Range/Units 18:55 WBC (4.5-11.0) X10^3/uL RBC (4.0-5.2) X10^6/uL Hgb (12.0-16.0) g/dL Hct (36-46) % MCV (80-100) fL MCH (26-34) PG MCHC (30-36) % RDW (11.6-14.8) % Plt Count (150-400) X10^3/uL Neut % (Auto) Lymph % (Auto) [place] % (Auto) Eos % (Auto) Baso % (Auto) Lymph # (Auto) [place] # (Auto) Baso # (Auto) Total Counted Seg Neutrophils % (38-70) % Band Neutrophils % (3-7) % Lymphocytes % (Manual) (25-45) % Atypical Lymphs % ( - 0) % Monocytes % (Manual) (2-11) % Eosinophils % (Manual) (2-4) % Metamyelocytes % (-0) % Neutrophils # (Manual) (6016-8552) /uL RBC Morphology Sodium (137-145) mmol/L Potassium (3.4-5.1) mmol/L Chloride (98-107) mmol/L Carbon Dioxide (22-32) mmol/L BUN (7-17) mg/dL Creatinine (0.52-1.04) mg/dL Estimated GFR (>60) mL/min BUN/Creatinine Ratio (6-22) Glucose (70-100) mg/dL Lactate 0.7 (0.7-2.1) mmol/L Calcium (8.4-10.2) mg/dL Total Bilirubin (0.2-1.3) mg/dL AST (14-36) IU/L ALT (<35) IU/L Alkaline Phosphatase (38-126) U/L Total Protein (6.3-8.2) g/dL Albumin (3.5-5.0) g/dL Globulin (1.7-4.1) g/dL Albumin/Globulin Ratio (1.0-2.8) Lipase (23-300) U/L Procalcitonin (<0.5) ng/mL Urine Color Urine Appearance Urine pH (4.5-8.0) Ur Specific [place] (1.000-1.035) Urine Protein (Negative) Urine Glucose (UA) (Negative) g/dL Urine Ketones (NEGATIVE) Urine Occult Blood (Negative) Urine Nitrate (Negative) Urine Bilirubin (NEGATIVE) Urine Urobilinogen (0.2) E.U./dL Ur Leukocyte Esterase (NEGATIVE) Urine RBC (0-5/HPF) Urine WBC (0-5/HPF) Ur Squamous Epith Cells (0-5/HPF) Amorphous Sediment Urine Bacteria (None) Ur Culture Indicated? Stl C. cayetanensis PCR (Not Detect) Stool Rotavirus (PCR) (Not Detect) Stool Adenovirus (PCR) (Not Detect) Stool Astrovirus (PCR) (Not Detect) Stool Cryptosporidium PCR (Not Detect) Stl E.coli Shiga Tox PCR (Not Detect) St Sh/Enteroin Ecoli PCR (Not Detect) Stool E coli O157 PCR (Not Detect) Stl Enterotoxigenic E PCR (Not Detect) Stool EPEC (PCR) (Not Detect) Stl E. histolytica PCR (Not Detect) Stool Giardia Lamblia PCR (Not Detect) Stool Sapovirus (PCR) (Not Detect) Stl P. shigelloides PCR (Not Detect) St Y.enterocolitica PCR (Not Detect) Stool Vibrio (PCR) (Not Detect) Stl Vibrio cholerae PCR (Not Detect) Stl Enteroaggr Ecoli PCR (Not Detect) Stl Norovirus GI/GII PCR (Not Detect) Campylobacter (PCR) (Not Detect) C. difficile Tox (PCR) (Not Detect) SARS-CoV-2 (PCR) (Negative) Influenza A (RT-PCR) (NEGATIVE) Influenza B (RT-PCR) (NEGATIVE) RSV (PCR) (Negative) Salmonella (PCR) (Not Detect) Imaging Data Abdominal x-ray: Radiologist's Impression: [place] [address] XRay Report Signed Patient: Dorothy Bee MR#: [id number] : 1965 Acct:[id number] Age/Sex: 57 / F Date of Service: 05/04/22 Loc: ED Accession Number: [id number] ?? Procedure: XR abdomen 1V Ordering Provider: Braulio Reed D.O. PROCEDURE:? XR ABDOMEN 1V ? INDICATIONS:? diarrhea ? TECHNIQUE:? One view of the abdomen acquired.? ? COMPARISON:? None. ? FINDINGS:? ? Surgical changes and devices:? None.? ? Bowel:? Multiple moderately distended loops of small bowel within the mid and left hemiabdomen. ? Soft tissues:? No suspicious abdominal calcifications.? Visualized solid organ contours appear normal in size.? ? Bones:? No suspicious bony lesions.? ? IMPRESSION:? Distended small bowel loops, consistent with ileus versus obstruction. ? ? Dictated by: Hoda Da Silva M.D. on 05/04/2022 at 15:35 ? ? Approved by: Hoda Da Silva M.D. on 05/04/2022 at 15:35?? MDM Narrative Medical decision making narrative: Seven days of profuse watery diarrhea. Afebrile. Not having abdominal pain but is having lower back pain which is not new. Has had decreased urine output. No recent travel. No recent antibiotics. Patient's lab resulted with a white count 30. Has a worsening of her kidney function to include an increase in her creatinine decrease in her GFR. Patient also has a CO2 of 15 on her chemistries. Does not have a lactate. Procalcitonin is elevated. Once labs resulted cultures were obtained. Have a high suspicion that this is a GI source and most likely C diff given her presentation. Antibiotics were ordered is broad coverage however there was somewhat of a delay in this because of the initial high suspicion that this was C diff however when the patient began to become hypotensive antibiotics were ordered and were aggressive fluid resuscitation was pursued. After 3 L of fluid which is 30 cc/kilogram her blood pressure did improve. She was mentating normally throughout this process. X-ray concerning for ileus versus obstruction. Non-con CT scan ordered however given her blood pressure this was somewhat delayed. PICC was placed. Care turned over to Dr. Lundberg to continue to evaluate with CT scan and disposition. <Marvin Lundberg, DO - Last Filed: 05/05/22 04:33> Lab Data Labs: Lab Results 05/04/22 05/04/22 05/04/22 Range/Units 15:32 15:51 15:51 WBC 31.4 H* (4.5-11.0) X10^3/uL RBC 4.28 (4.0-5.2) X10^6/uL Hgb 13.4 (12.0-16.0) g/dL Hct 40.0 (36-46) % MCV 93.4 (80-100) fL MCH 31.3 (26-34) PG MCHC 33.6 (30-36) % RDW 13.3 (11.6-14.8) % Plt Count 704 H (150-400) X10^3/uL Neut % (Auto) Not Reportable Lymph % (Auto) Not Reportable [place] % (Auto) Not Reportable Eos % (Auto) Not Reportable Baso % (Auto) Not Reportable Lymph # (Auto) Not Reportable [place] # (Auto) Not Reportable Baso # (Auto) Not Reportable Total Counted 100 Seg Neutrophils % 60.0 (38-70) % Band Neutrophils % 15.0 H (3-7) % Lymphocytes % (Manual) 17.0 L (25-45) % Atypical Lymphs % 3.0 H ( - 0) % Monocytes % (Manual) 2.0 (2-11) % Eosinophils % (Manual) 1.0 L (2-4) % Metamyelocytes % 2.0 H (-0) % Neutrophils # (Manual) 21012 H (5102-5189) /uL RBC Morphology Normal morphology Sodium 131 L (137-145) mmol/L Potassium 3.3 L (3.4-5.1) mmol/L Chloride 96 L (98-107) mmol/L Carbon Dioxide 15 L (22-32) mmol/L BUN 115 H* (7-17) mg/dL Creatinine 2.37 H (0.52-1.04) mg/dL Estimated GFR 24 L (>60) mL/min BUN/Creatinine Ratio 48.5 H (6-22) Glucose 91 (70-100) mg/dL Lactate (0.7-2.1) mmol/L Calcium 8.8 (8.4-10.2) mg/dL Total Bilirubin 0.3 (0.2-1.3) mg/dL AST 24 (14-36) IU/L ALT 25 (<35) IU/L Alkaline Phosphatase 133 H (38-126) U/L Total Protein 7.6 (6.3-8.2) g/dL Albumin 3.8 (3.5-5.0) g/dL Globulin 3.8 (1.7-4.1) g/dL Albumin/Globulin Ratio 1.0 (1.0-2.8) Lipase 600 H (23-300) U/L Procalcitonin (<0.5) ng/mL Urine Color Yellow Urine Appearance Cloudy Urine pH 5.0 (4.5-8.0) Ur Specific [place] 1.020 (1.000-1.035) Urine Protein 1+ H (Negative) Urine Glucose (UA) Negative (Negative) g/dL Urine Ketones Negative (NEGATIVE) Urine Occult Blood 3+ H (Negative) Urine Nitrate Negative (Negative) Urine Bilirubin Negative (NEGATIVE) Urine Urobilinogen 0.2 (0.2) E.U./dL Ur Leukocyte Esterase 2+ H (NEGATIVE) Urine RBC 5-10/hpf H (0-5/HPF) Urine WBC 30-100/hpf H (0-5/HPF) Ur Squamous Epith Cells 1-5 /hpf D (0-5/HPF) Amorphous Sediment 1+ Urine Bacteria Many (>30) H (None) Ur Culture Indicated? Specimen cultured Stl C. cayetanensis PCR (Not Detect) Stool Rotavirus (PCR) (Not Detect) Stool Adenovirus (PCR) (Not Detect) Stool Astrovirus (PCR) (Not Detect) Stool Cryptosporidium PCR (Not Detect) Stl E.coli Shiga Tox PCR (Not Detect) St Sh/Enteroin Ecoli PCR (Not Detect) Stool E coli O157 PCR (Not Detect) Stl Enterotoxigenic E PCR (Not Detect) Stool EPEC (PCR) (Not Detect) Stl E. histolytica PCR (Not Detect) Stool Giardia Lamblia PCR (Not Detect) Stool Sapovirus (PCR) (Not Detect) Stl P. shigelloides PCR (Not Detect) St Y.enterocolitica PCR (Not Detect) Stool Vibrio (PCR) (Not Detect) Stl Vibrio cholerae PCR (Not Detect) Stl Enteroaggr Ecoli PCR (Not Detect) Stl Norovirus GI/GII PCR (Not Detect) Campylobacter (PCR) (Not Detect) C. difficile Tox (PCR) (Not Detect) SARS-CoV-2 (PCR) (Negative) Influenza A (RT-PCR) (NEGATIVE) Influenza B (RT-PCR) (NEGATIVE) RSV (PCR) (Negative) Salmonella (PCR) (Not Detect) 05/04/22 05/04/22 05/04/22 Range/Units 15:51 15:51 16:04 WBC (4.5-11.0) X10^3/uL RBC (4.0-5.2) X10^6/uL Hgb (12.0-16.0) g/dL Hct (36-46) % MCV (80-100) fL MCH (26-34) PG MCHC (30-36) % RDW (11.6-14.8) % Plt Count (150-400) X10^3/uL Neut % (Auto) Lymph % (Auto) [place] % (Auto) Eos % (Auto) Baso % (Auto) Lymph # (Auto) [place] # (Auto) Baso # (Auto) Total Counted Seg Neutrophils % (38-70) % Band Neutrophils % (3-7) % Lymphocytes % (Manual) (25-45) % Atypical Lymphs % ( - 0) % Monocytes % (Manual) (2-11) % Eosinophils % (Manual) (2-4) % Metamyelocytes % (-0) % Neutrophils # (Manual) (4279-1339) /uL RBC Morphology Sodium (137-145) mmol/L Potassium (3.4-5.1) mmol/L Chloride (98-107) mmol/L Carbon Dioxide (22-32) mmol/L BUN (7-17) mg/dL Creatinine (0.52-1.04) mg/dL Estimated GFR (>60) mL/min BUN/Creatinine Ratio (6-22) Glucose (70-100) mg/dL Lactate 1.8 (0.7-2.1) mmol/L Calcium (8.4-10.2) mg/dL Total Bilirubin (0.2-1.3) mg/dL AST (14-36) IU/L ALT (<35) IU/L Alkaline Phosphatase (38-126) U/L Total Protein (6.3-8.2) g/dL Albumin (3.5-5.0) g/dL Globulin (1.7-4.1) g/dL Albumin/Globulin Ratio (1.0-2.8) Lipase (23-300) U/L Procalcitonin 4.14 H (<0.5) ng/mL Urine Color Urine Appearance Urine pH (4.5-8.0) Ur Specific [place] (1.000-1.035) Urine Protein (Negative) Urine Glucose (UA) (Negative) g/dL Urine Ketones (NEGATIVE) Urine Occult Blood (Negative) Urine Nitrate (Negative) Urine Bilirubin (NEGATIVE) Urine Urobilinogen (0.2) E.U./dL Ur Leukocyte Esterase (NEGATIVE) Urine RBC (0-5/HPF) Urine WBC (0-5/HPF) Ur Squamous Epith Cells (0-5/HPF) Amorphous Sediment Urine Bacteria (None) Ur Culture Indicated? Stl C. cayetanensis PCR Not detected (Not Detect) Stool Rotavirus (PCR) Not detected (Not Detect) Stool Adenovirus (PCR) Not detected (Not Detect) Stool Astrovirus (PCR) Not detected (Not Detect) Stool Cryptosporidium PCR Not detected (Not Detect) Stl E.coli Shiga Tox PCR Not detected (Not Detect) St Sh/Enteroin Ecoli PCR Not detected (Not Detect) Stool E coli O157 PCR Not detected (Not Detect) Stl Enterotoxigenic E PCR Not detected (Not Detect) Stool EPEC (PCR) Not detected (Not Detect) Stl E. histolytica PCR Not detected (Not Detect) Stool Giardia Lamblia PCR Not detected (Not Detect) Stool Sapovirus (PCR) Not detected (Not Detect) Stl P. shigelloides PCR Not detected (Not Detect) St Y.enterocolitica PCR Not detected (Not Detect) Stool Vibrio (PCR) Not detected (Not Detect) Stl Vibrio cholerae PCR Not detected (Not Detect) Stl Enteroaggr Ecoli PCR Not detected (Not Detect) Stl Norovirus GI/GII PCR Not detected (Not Detect) Campylobacter (PCR) Not detected (Not Detect) C. difficile Tox (PCR) Not detected (Not Detect) SARS-CoV-2 (PCR) (Negative) Influenza A (RT-PCR) (NEGATIVE) Influenza B (RT-PCR) (NEGATIVE) RSV (PCR) (Negative) Salmonella (PCR) Not detected (Not Detect) 05/04/22 05/04/22 05/04/22 Range/Units 16:05 18:55 18:55 WBC (4.5-11.0) X10^3/uL RBC (4.0-5.2) X10^6/uL Hgb 11.6 L (12.0-16.0) g/dL Hct 34.5 L (36-46) % MCV (80-100) fL MCH (26-34) PG MCHC (30-36) % RDW (11.6-14.8) % Plt Count (150-400) X10^3/uL Neut % (Auto) Lymph % (Auto) [place] % (Auto) Eos % (Auto) Baso % (Auto) Lymph # (Auto) [place] # (Auto) Baso # (Auto) Total Counted Seg Neutrophils % (38-70) % Band Neutrophils % (3-7) % Lymphocytes % (Manual) (25-45) % Atypical Lymphs % ( - 0) % Monocytes % (Manual) (2-11) % Eosinophils % (Manual) (2-4) % Metamyelocytes % (-0) % Neutrophils # (Manual) (1870-9648) /uL RBC Morphology Sodium 132 L (137-145) mmol/L Potassium 4.5 D (3.4-5.1) mmol/L Chloride 103 (98-107) mmol/L Carbon Dioxide 13 L (22-32) mmol/L BUN 107 H* (7-17) mg/dL Creatinine 1.92 H (0.52-1.04) mg/dL Estimated GFR 30 L (>60) mL/min BUN/Creatinine Ratio 55.7 H (6-22) Glucose 84 (70-100) mg/dL Lactate (0.7-2.1) mmol/L Calcium 7.2 L (8.4-10.2) mg/dL Total Bilirubin 0.5 (0.2-1.3) mg/dL AST 26 (14-36) IU/L ALT 21 (<35) IU/L Alkaline Phosphatase 106 (38-126) U/L Total Protein 6.2 L (6.3-8.2) g/dL Albumin 2.9 L (3.5-5.0) g/dL Globulin 3.3 (1.7-4.1) g/dL Albumin/Globulin Ratio 0.9 L (1.0-2.8) Lipase (23-300) U/L Procalcitonin 2.50 H (<0.5) ng/mL Urine Color Urine Appearance Urine pH (4.5-8.0) Ur Specific [place] (1.000-1.035) Urine Protein (Negative) Urine Glucose (UA) (Negative) g/dL Urine Ketones (NEGATIVE) Urine Occult Blood (Negative) Urine Nitrate (Negative) Urine Bilirubin (NEGATIVE) Urine Urobilinogen (0.2) E.U./dL Ur Leukocyte Esterase (NEGATIVE) Urine RBC (0-5/HPF) Urine WBC (0-5/HPF) Ur Squamous Epith Cells (0-5/HPF) Amorphous Sediment Urine Bacteria (None) Ur Culture Indicated? Stl C. cayetanensis PCR (Not Detect) Stool Rotavirus (PCR) (Not Detect) Stool Adenovirus (PCR) (Not Detect) Stool Astrovirus (PCR) (Not Detect) Stool Cryptosporidium PCR (Not Detect) Stl E.coli Shiga Tox PCR (Not Detect) St Sh/Enteroin Ecoli PCR (Not Detect) Stool E coli O157 PCR (Not Detect) Stl Enterotoxigenic E PCR (Not Detect) Stool EPEC (PCR) (Not Detect) Stl E. histolytica PCR (Not Detect) Stool Giardia Lamblia PCR (Not Detect) Stool Sapovirus (PCR) (Not Detect) Stl P. shigelloides PCR (Not Detect) St Y.enterocolitica PCR (Not Detect) Stool Vibrio (PCR) (Not Detect) Stl Vibrio cholerae PCR (Not Detect) Stl Enteroaggr Ecoli PCR (Not Detect) Stl Norovirus GI/GII PCR (Not Detect) Campylobacter (PCR) (Not Detect) C. difficile Tox (PCR) (Not Detect) SARS-CoV-2 (PCR) Negative (Negative) Influenza A (RT-PCR) Flu a negative (NEGATIVE) Influenza B (RT-PCR) Flu b negative (NEGATIVE) RSV (PCR) Negative (Negative) Salmonella (PCR) (Not Detect) 05/04/22 Range/Units 18:55 WBC (4.5-11.0) X10^3/uL RBC (4.0-5.2) X10^6/uL Hgb (12.0-16.0) g/dL Hct (36-46) % MCV (80-100) fL MCH (26-34) PG MCHC (30-36) % RDW (11.6-14.8) % Plt Count (150-400) X10^3/uL Neut % (Auto) Lymph % (Auto) [place] % (Auto) Eos % (Auto) Baso % (Auto) Lymph # (Auto) [place] # (Auto) Baso # (Auto) Total Counted Seg Neutrophils % (38-70) % Band Neutrophils % (3-7) % Lymphocytes % (Manual) (25-45) % Atypical Lymphs % ( - 0) % Monocytes % (Manual) (2-11) % Eosinophils % (Manual) (2-4) % Metamyelocytes % (-0) % Neutrophils # (Manual) (7887-4183) /uL RBC Morphology Sodium (137-145) mmol/L Potassium (3.4-5.1) mmol/L Chloride (98-107) mmol/L Carbon Dioxide (22-32) mmol/L BUN (7-17) mg/dL Creatinine (0.52-1.04) mg/dL Estimated GFR (>60) mL/min BUN/Creatinine Ratio (6-22) Glucose (70-100) mg/dL Lactate 0.7 (0.7-2.1) mmol/L Calcium (8.4-10.2) mg/dL Total Bilirubin (0.2-1.3) mg/dL AST (14-36) IU/L ALT (<35) IU/L Alkaline Phosphatase (38-126) U/L Total Protein (6.3-8.2) g/dL Albumin (3.5-5.0) g/dL Globulin (1.7-4.1) g/dL Albumin/Globulin Ratio (1.0-2.8) Lipase (23-300) U/L Procalcitonin (<0.5) ng/mL Urine Color Urine Appearance Urine pH (4.5-8.0) Ur Specific [place] (1.000-1.035) Urine Protein (Negative) Urine Glucose (UA) (Negative) g/dL Urine Ketones (NEGATIVE) Urine Occult Blood (Negative) Urine Nitrate (Negative) Urine Bilirubin (NEGATIVE) Urine Urobilinogen (0.2) E.U./dL Ur Leukocyte Esterase (NEGATIVE) Urine RBC (0-5/HPF) Urine WBC (0-5/HPF) Ur Squamous Epith Cells (0-5/HPF) Amorphous Sediment Urine Bacteria (None) Ur Culture Indicated? Stl C. cayetanensis PCR (Not Detect) Stool Rotavirus (PCR) (Not Detect) Stool Adenovirus (PCR) (Not Detect) Stool Astrovirus (PCR) (Not Detect) Stool Cryptosporidium PCR (Not Detect) Stl E.coli Shiga Tox PCR (Not Detect) St Sh/Enteroin Ecoli PCR (Not Detect) Stool E coli O157 PCR (Not Detect) Stl Enterotoxigenic E PCR (Not Detect) Stool EPEC (PCR) (Not Detect) Stl E. histolytica PCR (Not Detect) Stool Giardia Lamblia PCR (Not Detect) Stool Sapovirus (PCR) (Not Detect) Stl P. shigelloides PCR (Not Detect) St Y.enterocolitica PCR (Not Detect) Stool Vibrio (PCR) (Not Detect) Stl Vibrio cholerae PCR (Not Detect) Stl Enteroaggr Ecoli PCR (Not Detect) Stl Norovirus GI/GII PCR (Not Detect) Campylobacter (PCR) (Not Detect) C. difficile Tox (PCR) (Not Detect) SARS-CoV-2 (PCR) (Negative) Influenza A (RT-PCR) (NEGATIVE) Influenza B (RT-PCR) (NEGATIVE) RSV (PCR) (Negative) Salmonella (PCR) (Not Detect) MDM Narrative Medical decision making narrative: Seven days of profuse watery diarrhea. Afebrile. Not having abdominal pain but is having lower back pain which is not new. Has had decreased urine output. No recent travel. No recent antibiotics. Patient's lab resulted with a white count 30. Has a worsening of her kidney function to include an increase in her creatinine decrease in her GFR. Patient also has a CO2 of 15 on her chemistries. Does not have a lactate. Procalcitonin is elevated. Once labs resulted cultures were obtained. Have a high suspicion that this is a GI source and most likely C diff given her presentation. Antibiotics were ordered is broad coverage however there was somewhat of a delay in this because of the initial high suspicion that this was C diff however when the patient began to become hypotensive antibiotics were ordered and were aggressive fluid resuscitation was pursued. After 3 L of fluid which is 30 cc/kilogram her blood pressure did improve. She was mentating normally throughout this process. X-ray concerning for ileus versus obstruction. Non-con CT scan ordered however given her blood pressure this was somewhat delayed. PICC was placed. Care turned over to Dr. Lundberg to continue to evaluate with CT scan and disposition. [1800] (Toño) Patient received in sign out from [Brianna]. I have reviewed the clinical course and performed an independent history and physical exam. Repeat labs ordered and over the course of the day and after fluid resuscitation thankfully we are moving in the right direction, procalcitonin is improving, renal function is improving. PICC line has been placed and after significant fluid administration she continues to have map in the 70s with appropriate urine output, fluid resuscitation has been successful and there is no indication for pressor support at this time CT results reviewed and thankfully no evidence of bowel obstruction. At time of admission there is no surgical finding in history, physical or imaging, will continue treatment of urosepsis, will closely monitor vital signs, trending labs, patient admitted to the ICU <Marvin Lundberg - Last Filed: 05/05/22 04:33> Critical Care Time Critical Care Time: Yes Total Critical Care Time: 45 Attestation: The high probability of a clinically significant, sudden or life threatening deterioration of the [CV/GI] system(s) required my full and direct attention, intervention and personal management. The aggregate critical care time was [45] minutes. This time is in addition to time spent performing reported procedures but includes the following: [x] Data Review and interpretation [x] Patient assessment and monitoring of vital signs [x] Documentation [x] Medication orders and management Discharge Plan Departure Patient Disposition: Admitted As Inpatient Clinical Impression: Sepsis, UTI (urinary tract infection), Acute kidney injury, Diarrhea Admit Date/Time: 05/05/22 01:11 Admit Provider: Deven Metcalf
[2022-05-04 15:39] LABS: Appearance Urine UA CLOUDY; Bilirubin Urine UA NEGATIVE (NEGATIVE); Color Urine UA YELLOW; Glucose Urine UA NEGATIVE (Negative); Ketones Urine UA NEGATIVE (NEGATIVE); Leukocyte Esterase Urine UA 2+ (NEGATIVE); Nitrite Urine UA NEGATIVE (Negative); Occult Blood Urine UA 3+ (Negative); Protein Urine UA 1+ (Negative); Urobilinogen Urine UA 0.2 E.U./dL (0.2)
[2022-05-04 15:45] LABS: Amorphous Sediment Urine 1+; Bacteria Urine Many (>30); RBC Urine 5-10/HPF (0-5/HPF); Squamous Epithelial Cell Urine 1-5 /HPF (0-5/HPF); WBC Urine 30-100/HPF (0-5/HPF)
[2022-05-04 15:46] LABS: Culture Indicated Urine Specimen Cultured
[2022-05-04 16:00] LABS: Hemoglobin 13.4 g/dL (12.0-16.0); Mean Corpuscular HGB Conc 33.6 % (30-36); Mean Corpuscular Hemoglobin 31.3 PG (26-34); Mean Corpuscular Volume 93.4 fL (80-100); Platelet Count 704 X10^3/uL (150-400); Red Blood Cell Count 4.28 X10^6/uL (4.0-5.2); Red Cell Distribution Width 13.3 % (11.6-14.8)
[2022-05-04 16:02] LABS: Add Manual Diff / Slide Review YES; White Blood Cell Count 31.4 X10^3/uL (4.5-11.0)
--- NOTE | 2022-05-04 16:07 | DI.RAD.S_ITS ---
PROCEDURE: XR ABDOMEN 1V INDICATIONS: diarrhea TECHNIQUE: One view of the abdomen acquired. COMPARISON: None. FINDINGS: Surgical changes and devices: None. Bowel: Multiple moderately distended loops of small bowel within the mid and left hemiabdomen. Soft tissues: No suspicious abdominal calcifications. Visualized solid organ contours appear normal in size. Bones: No suspicious bony lesions. IMPRESSION: Distended small bowel loops, consistent with ileus versus obstruction. Dictated by: Hoda Da Silva M.D. on 05/04/2022 at 15:35 Approved by: Hoda Da Silva M.D. on 05/04/2022 at 15:35
[2022-05-04 16:11] LABS: Alanine Aminotransferase 25 IU/L (<35); Albumin 3.8 g/dL (3.5-5.0); Alkaline Phosphatase 133 U/L (38-126); Aspartate Aminotransferase 24 IU/L (14-36); Bilirubin Total 0.3 mg/dL (0.2-1.3); Calcium 8.8 mg/dL (8.4-10.2); Carbon Dioxide 15 mmol/L (22-32); Chloride 96 mmol/L (98-107); Globulin 3.8 g/dL (1.7-4.1); Glucose 91 mg/dL (70-100); HEMOLYSIS 16 (0-50); Lipase 600 U/L (23-300); Potassium 3.3 mmol/L (3.4-5.1); Sodium 131 mmol/L (137-145); Total Protein 7.6 g/dL (6.3-8.2)
[2022-05-04 16:15] LABS: Lactate (Lactic Acid) 1.8 mmol/L (0.7-2.1)
[2022-05-04 16:16] LABS: Neutrophils Absolute Manual 23550 /uL (3000-5900); RBC Morphology Normal Morphology; Total Cells Counted 100
[2022-05-04 16:18] LABS: BUN Creatinine Ratio 48.5 (6-22); Estimated Glomerular Filt Rate 24 mL/min (>60)
[2022-05-04 16:19] LABS: Blood Urea Nitrogen 115 mg/dL (7-17)
[2022-05-04] MEDS: MORPHINE 4 MG/ML INJ IV (16:19)
[2022-05-04] MEDS: SODIUM CHLORIDE 0.9% 1,000 ML 1000 ML IV ×3 (16:19→17:35)
[2022-05-04 16:37] LABS: Procalcitonin 4.14 ng/mL (<0.5)
--- NOTE | 2022-05-04 16:44 | DI.CT.S_ITS ---
PROCEDURE: CT ABDOMEN PELVIS WO CON INDICATIONS: eval for obstruction TECHNIQUE: Axial sections were acquired from the lung bases to the pubic symphysis. Coronal and sagittal reformats were performed. For radiation dose reduction, the following was used: automated exposure control, adjustment of mA and/or kV according to patient size. COMPARISON: None. FINDINGS: Image quality: Excellent. Lung bases: There is minimal atelectasis. Heart: Heart is normal in size. There is a small hiatal hernia. URINARY: Right Kidney and Ureter: No stones or hydronephrosis. No hydroureter. Left Kidney and Ureter: No stones or hydronephrosis. No hydroureter. Bladder: There is a Quezada catheter within a nondistended urinary bladder. No stones. ABDOMEN: Liver: Noncontrast evaluation of the liver demonstrates no discrete mass. Gallbladder: Appears surgically absent. Biliary ducts: No biliary ductal dilatation. Pancreas: Unremarkable. Spleen: Normal in size. Adrenal Glands: No adrenal nodules. Stomach and Bowel: There is mild fluid distention of multiple loops of small and large bowel with scattered air-fluid levels but no single focal transition point to suggest obstruction. The findings likely represent an ileus or gastroenteritis. No pericecal inflammatory changes to suggest appendicitis. Peritoneum: No abnormal intraperitoneal fluid. No free air. Ventral Wall: No hernia. Abdominal Nodes: No retroperitoneal or mesenteric adenopathy by size criteria. Vessels: Aorta and inferior vena cava are normal in size. PELVIS: Pelvic Organs: Unremarkable. Pelvic Nodes: No enlarged lymph nodes. Miscellaneous: No inguinal hernias identified. Bones: Visualized osseous structures demonstrate no suspicious focal lesions. IMPRESSION: 1. Scattered air-fluid levels and mild fluid distention throughout the small and large bowel without a focal transition point to suggest obstruction. The findings likely represent an ileus or gastroenteritis. 2. No evidence of nephrolithiasis or obstructive uropathy. Dictated by: Ernie Abraham M.D. on 05/04/2022 at 21:51 Approved by: Ernie Abraham M.D. on 05/04/2022 at 22:06
[2022-05-04] MEDS: PIPERACILLIN/TAZO 4.5 GM in SODIUM CHLORIDE 0.9% 100 ML IV (16:58)
[2022-05-04 17:29] LABS: Influenza A - CEPHEID Flu A NEGATIVE (NEGATIVE); Influenza B - CEPHEID Flu B NEGATIVE (NEGATIVE); Respiratory Syncytial Virus Negative (Negative)
[2022-05-04 17:36] LABS: COVID-19 CEPHEID 4-PLEX PCR Negative (Negative)
[2022-05-04] MEDS: metroNIDAZOLE 500 MG/100 ML PIGGYBACK 100 MG IV (17:41)
[2022-05-04] MEDS: LACTATED RINGERS 1,000 ML 250 ML IV (18:03)
[2022-05-04 18:05] LABS: Adenovirus F 40/41 Not Detected (Not Detect); Astrovirus Not Detected (Not Detect); Campylobacter Not Detected (Not Detect); Clostridium difficile toxin AB Not Detected (Not Detect); Cryptosporidium Not Detected (Not Detect); Cyclospora cayetanensis Not Detected (Not Detect); Entamoeba histolytica Not Detected (Not Detect); Enteroaggregative E.coli Not Detected (Not Detect); Enteropathogenic E.coli Not Detected (Not Detect); Enterotoxigenic E.coli It/st Not Detected (Not Detect); Giardia lamblia Not Detected (Not Detect); Norovirus GI/GII Not Detected (Not Detect); Plesiomonsa shigelloides Not Detected (Not Detect); Rotavirus A Not Detected (Not Detect); Salmonella Not Detected (Not Detect); Sapovirus Not Detected (Not Detect); Shiga-like toxin-prod E.coli Not Detected (Not Detect); Shigella/Enteroinvasive E.coli Not Detected (Not Detect); Vibrio Not Detected (Not Detect); Vibrio cholerae Not Detected (Not Detect); Yersinia enterocolitica Not Detected (Not Detect)
--- NOTE | 2022-05-04 18:40 | DI.RAD.S_ITS ---
PROCEDURE: XR CHEST FOR PICC 1V INDICATIONS: PICC placeemnt COMPARISON: [facility], CR, XR CHEST 2V, 03/07/2020, 12:30. FINDINGS: PICC was placed by the intravenous therapy team from the right side. Fluoroscopic spot film demonstrates the tip of PICC projecting to the area of right. The lungs demonstrate increased interstitial markings. Heart size enlarged. IMPRESSION: Tip of PICC projects to the area of right atrium. Dictated by: Epi Salinas M.D. on 05/04/2022 at 19:00 Approved by: Epi Salinas M.D. on 05/04/2022 at 19:01
[2022-05-04] MEDS: VANCOMYCIN 1,000 MG/200 ML PIGGYBACK 200 MG IV (18:49)
[2022-05-04 19:09] LABS: Hematocrit 34.5 % (36-46); Hemoglobin 11.6 g/dL (12.0-16.0)
--- NOTE | 2022-05-04 19:16 | PC.NURSE ---
PICC nurse placed line and obtained xray, Dr. Toño carrillo's use of line. Dr. Lundberg updated on BP and gave verbal order to RN to increase LR rate from 250 to 999.
[2022-05-04 19:23] LABS: Alanine Aminotransferase 21 IU/L (<35); Albumin 2.9 g/dL (3.5-5.0); Albumin Globulin Ratio 0.9 (1.0-2.8); Alkaline Phosphatase 106 U/L (38-126); Aspartate Aminotransferase 26 IU/L (14-36); BUN Creatinine Ratio 55.7 (6-22); Bilirubin Total 0.5 mg/dL (0.2-1.3); Calcium 7.2 mg/dL (8.4-10.2); Carbon Dioxide 13 mmol/L (22-32); Chloride 103 mmol/L (98-107); Estimated Glomerular Filt Rate 30 mL/min (>60); Globulin 3.3 g/dL (1.7-4.1); Glucose 84 mg/dL (70-100); Lactate (Lactic Acid) 0.7 mmol/L (0.7-2.1); Potassium 4.5 mmol/L (3.4-5.1); Sodium 132 mmol/L (137-145); Total Protein 6.2 g/dL (6.3-8.2)
[2022-05-04 19:24] LABS: HEMOLYSIS 73 (0-50)
--- NOTE | 2022-05-04 19:25 | PC.NURSE ---
Addendum entered by Pina Kwong R.N. 05/05/22 02:53: The patient is noted to have an area of redness to the left underside of her breast - states that she has had it for awhile - zinc oxide usually works for her (per pt) Original Note: Report received - assumed care of pt at this time - gowned at this time with assistance of pt - tolerated well - speaking in full sentences - alert and oriented - voicing concern that she is unable to urinate - relates frustration - placed on bedpan - relates pressure but unable to go - states I would rather have a catheter than this.
[2022-05-04 19:26] LABS: Blood Urea Nitrogen 107 mg/dL (7-17)
--- NOTE | 2022-05-04 19:30 | PC.NURSE ---
taken out of trendelenberg at this time - tolerating well - difficulty with pulse ox readings - rearranged and tried in different areas/positions - with good pleth the patient's O2 sat is 97-99% on RA - no s/sx of hypoxia or SOB noted
--- NOTE | 2022-05-04 19:35 | PC.NURSE ---
Bladder scan performed by PHARMACY TEACHER = 368 noted - MD aware
--- NOTE | 2022-05-04 19:49 | PC.NURSE ---
placed on bedpan - states that it feels like she is 8 months and there is something jumping up and down on my bladder - relates that she has been only able to completely empty her bladder 2 times in the past week - states that she has only been able to dribble a little all the other times
--- NOTE | 2022-05-04 19:55 | PC.NURSE ---
Sathish-temp lyons placed without difficulty - tolerated well - 500ml output noted of clear yellow urine - pt states that she feels some relief
--- NOTE | 2022-05-04 20:15 | PC.NURSE ---
Relates that she is feeling relief with the lyons placement - still pain to the flank otherwise doing well
--- NOTE | 2022-05-04 20:30 | PC.NURSE ---
to bedside - pt alert and talking - clear full sentences - states that she is feeling better at this time d/t the lyons - relates that she is still having some back pains and that she is having severe heartburn - states that she normally takes omeprazole 2 times a day and that she has not taken her evening dose - MD aware and orders received for protonix - pt agrees to POC
[2022-05-04] MEDS: PANTOPRAZOLE 40 MG VIAL IV (20:40)
--- NOTE | 2022-05-04 20:45 | PC.NURSE ---
To radiology via stretcher with tech - alert and oriented - PWD with respirations equal and unlabored bilaterally - speaking in full clear sentences
--- NOTE | 2022-05-04 21:00 | PC.NURSE ---
Returns to the room via stretcher with tech from CT - the patient is alert and oriented - speaking in full clear sentences - stating that she is hungry and that her stomach feels fine - states that she has had a WBC or 13-16 since her stomach ruptured - explained that it is much higher today - speaking with at bedside
--- NOTE | 2022-05-04 21:30 | PC.NURSE ---
Talking with at bedside - would like to eat but explained that the CT has not resulted yet and she needs to await the results - verbalizes understanding
--- NOTE | 2022-05-04 22:00 | PC.NURSE ---
No changes in pt status at this time - BP continues to trend up and down - no changes in pt mentation - alert and oriented - PWD with respirations equal and unlabored bilaterally
--- NOTE | 2022-05-04 22:30 | PC.NURSE ---
No changes in pt status at this time
--- NOTE | 2022-05-04 23:00 | PC.NURSE ---
Complaint of pain increasing - yelling outloud - BP still cycling low - assisted to reposition to better position of comfort
--- NOTE | 2022-05-04 23:30 | PC.NURSE ---
No changes in pt status
[2022-05-05] VITALS (98 sets, daily range): BP systolic 74–127; BP diastolic 52–80; PULSE 94–119; RESP 10–40; TEMP 36–37.2; O2SAT 38–100; BMI 35.8
--- NOTE | 2022-05-05 | PC.NURSE ---
Awaiting admission - continues to c/o pain - alert and oriented - airway patent - PWD with respirations equal and unlabored bilaterally
--- NOTE | 2022-05-05 00:30 | PC.NURSE ---
No changes in pt status at this time - awaiting admission
--- NOTE | 2022-05-05 01:00 | PC.NURSE ---
No changes in pt status at this time
--- NOTE | 2022-05-05 01:30 | PC.NURSE ---
No changes in pt status
--- NOTE | 2022-05-05 02:08 | PC.NURSE ---
Report called to REBECCA Pierce - pt to be transferred to room 231
[2022-05-05] MEDS: HYDROCODONE/ACET 5/325 TABLET 1 TAB PO ×2 (03:13→20:07)
[2022-05-05] MEDS: PIPERACILLIN/TAZO 3.375 GM in SODIUM CHLORIDE 0.9% 100 ML IV ×3 (03:26→18:11)
[2022-05-05] MEDS: DEXTROSE 5%-0.45% NS 1,000 ML 100 ML IV (03:27)
[2022-05-05] MEDS: HYDROMORPHONE 1 MG INJ IV ×4 (06:11→21:07)
[2022-05-05 06:33] LABS: Hematocrit 34.7 % (36-46); Hemoglobin 11.7 g/dL (12.0-16.0); Mean Corpuscular HGB Conc 33.8 % (30-36); Mean Corpuscular Hemoglobin 31.2 PG (26-34); Mean Corpuscular Volume 92.3 fL (80-100); Platelet Count 602 X10^3/uL (150-400); Red Blood Cell Count 3.75 X10^6/uL (4.0-5.2); Red Cell Distribution Width 13.2 % (11.6-14.8); White Blood Cell Count 24.8 X10^3/uL (4.5-11.0)
--- NOTE | 2022-05-05 06:42 | PC.NURSE ---
Admit/Night Note-Patient admitted to ICU room 231, A/Ox4. Able to stand and transfer to bed with SBA. ST 100-115, BP 90s/50-60s, MAP >65. Afebrile. SpO2 .95% on RA, lung sounds CTA, IVF and Zosyn started, [place] and IV Dilaudid given for back pain. Quezada patent.
[2022-05-05 07:49] LABS: Add Manual Diff / Slide Review YES
[2022-05-05] MEDS: DULOXETINE 30 MG CAPSULE PO (09:15)
[2022-05-05] MEDS: LEVOTHYROXINE 112 MCG TABLET PO (09:15)
[2022-05-05] MEDS: ENOXAPARIN 40 MG/0.4 ML SYRINGE SUBCUT (09:15)
[2022-05-05] MEDS: PARoxetine 20 MG TABLET 10 MG PO (09:16)
[2022-05-05] MEDS: PANTOPRAZOLE 40 MG VIAL IV (09:16)
--- NOTE | 2022-05-05 09:19 | CM.DANOTE ---
DCP: Case received, EMR reviewed and met with patient. Introduced self and role. Was able to obtain information regarding patient's baseline health prior to discharge. DCP assessment completed with information currently available. Patient is a 57 year old female who admitted early this morning to the care of the hospitalist team. PCP: Dr. Patel. Payer: confirmed: [facility]. Patient came to the hospital via ambulance secondary to having decreased urinary output, 7 days of diarrhea, low back pain. Patient was admitted for urinary tract infection, acute kidney injury, and diarrhea. PICC line was placed. Met with patient in her room. She was sitting up in bed, alert and oriented. She is on clear liquids, and was having her breakfast. Confirmed that she resides in [place] with spouse, Maikel. She is independent at her baseline, and confirmed that Dr. Patel is her primary. Patient indicated, she had been having these symptoms for about a weak, and let it go too long. P: DCP to continue to follow. Patient should be able to go home when she is deemed medically stable. Delia Dodge RN/Casing Crew Pusher Discharge Planning/Care Management CM Discharge Assessment Start: 05/05/22 09:18 Freq: Status: Active Protocol: Document 05/05/22 09:18 (Rec: 05/05/22 09:19 [id number]) Discharge Planning Assessment Assigned Circular Head Saw Operator Delia Dodge RN/Casing Crew Pusher Advance Directives? No Advance Directives on File No History Provided By Patient,Medical Record Prior Living Arrangements House Household Members spouse,family,children Type of transporation used prior to Drives own vehicle admit Independent with ADL's Yes Is patient alert and oriented? Yes Caregiver for Another No Barriers to Discharge No Discharge Plan Home Transportation Arrangement Spouse Referrals Initiated None needed Whiteboard Updated in Patient Room with Yes name and ext. # of Circular Head Saw Operator Review Status In Process Next Review Type Continued Stay Review
[2022-05-05 09:58] LABS: Alanine Aminotransferase 23 IU/L (<35); Albumin 3.4 g/dL (3.5-5.0); Alkaline Phosphatase 140 U/L (38-126); Aspartate Aminotransferase 24 IU/L (14-36); BUN Creatinine Ratio 60.6 (6-22); Bilirubin Total 0.3 mg/dL (0.2-1.3); Blood Urea Nitrogen 83 mg/dL (7-17); Calcium 8.5 mg/dL (8.4-10.2); Carbon Dioxide 17 mmol/L (22-32); Chloride 104 mmol/L (98-107); Estimated Glomerular Filt Rate 46 mL/min (>60); Globulin 3.5 g/dL (1.7-4.1); Glucose 103 mg/dL (70-100); HEMOLYSIS < 15 (0-50); Potassium 3.3 mmol/L (3.4-5.1); Sodium 136 mmol/L (137-145); Total Protein 6.9 g/dL (6.3-8.2)
[2022-05-05 09:59] LABS: Lactate (Lactic Acid) 0.9 mmol/L (0.7-2.1)
--- NOTE | 2022-05-05 10:10 | P.HP_ITS ---
History of Present Illness History of Present Illness Date Patient Seen: 05/05/22 Chief complaint: Diarhea x7 / Rt Flank pain / UTI sym Narrative: Pt is a 57yo woman with fibromyalgia, chronic pain, hypothyroidism, anxiety and depression, HTN, and GERD who presented with diarrhea and right sided back pain. The pt reports onset of acute diarrhea around April 24-. It has been persistent since then. It is water, but not excessively foul-smelling. She denies any significant abdominal pain, nausea, or vomiting. She did develop severe lower back and right flank pain starting around 1 week ago. She felt feverish one night but did not check her temperature, and otherwise denies any recent fevers/chills. She states that she has not had much of an appetite, and has been drinking very little. She is urinating less that usual. She denies any unusual food intake, recent outdoor activities, or other expoures. The pt denies any recent chest pain or SOB. She was in her usual state of health prior to the beginning of April. In the ED, the pt was noted to be hypotensive and tachycardic, with normal pulse ox. She received multiple IV fluid boluses, and her BP stabilized. She was originally thought to have C diff, however stool PCR returned negative. Labs showed a significantly elevated WBC count, procalcitonin, and creatinine. Abdominal xray and CT were completed, that showed ileus/gastroenteritis. Urine culture was highly suspicious for UTI. Patient History Medical History (Updated 05/05/22 @ 04:33 by Marvin Lundberg DO) Anemia Anxiety Chicken pox (1978) Depression Fibromyalgia Foot pain (2012) Gastric ulcer (01/24/10) Hypertension Hypothyroidism Irregular periods/menstrual cycles Mumps (1969) Osteoarthritis Recurrent sinusitis Surgical History Anesthesia History of incisional hernia repair (01/17/13) History of surgery (12/2015) Hx of abdominal surgery (01/24/10) Status post appendectomy (1977) Status post delivery (08/28/00) Status post right foot surgery (06/19/15) Family & Social History Family History Grandmother Hypertension Stroke Mother Age: 78 Hypertension Mental health problem Stroke Sister Age: 50 Hypertension High cholesterol Mental health problem Father Traffic accident Grandfather Swallowed foreign body Grandfather No problems noted. Grandmother No problems noted. Sister No problems noted. Social History: household members spouse,family,children Prior Living Arrangements House other [place] Safety & Behavioral: Feels Safe in Current Yes Environment Been Physically Hurt or No Threatened By a Person Tobacco & Substance use: Tobacco type cigarettes Smoking Status Current every day smoker alcohol intake frequency holiday/special occasion Substance Use Type does not use Meds Home Medications and Allergies Home Medications Medication Instructions Recorded Confirmed Type acetaminophen 500 mg capsule 1,000 mg PO Q6H PRN Muscle Pain 11/03/19 05/05/22 History atorvastatin 40 mg tablet 40 mg PO BEDTIME 05/05/22 05/05/22 History cyclobenzaprine 10 mg tablet 10 mg PO TID PRN Spasms 05/05/22 05/05/22 History duloxetine 60 mg capsule,delayed 60 mg PO BEDTIME 05/05/22 05/05/22 History release levothyroxine 112 mcg tablet 112 mcg PO DAILY 05/05/22 05/05/22 History lisinopril 20 mg tablet 20 mg PO DAILY 05/05/22 05/05/22 History meloxicam 7.5 mg tablet 7.5 mg PO DAILY 05/05/22 05/05/22 History omeprazole 20 mg capsule,delayed 20 mg PO BID 05/05/22 05/05/22 History release paroxetine HCl 40 mg tablet 20 mg PO DAILY 05/05/22 05/05/22 History trazodone 50 mg tablet 100 mg PO BEDTIME PRN Insomnia 05/05/22 05/05/22 History triamterene 37.5 1 tab PO DAILY 05/05/22 05/05/22 History mg-hydrochlorothiazide 25 mg tablet Allergies Allergy/AdvReac Type Severity Reaction Status Date / Time felodipine [FELODIPINE] Allergy Severe EDEMA IN Verified 05/04/22 15:27 THE LOWER LEGS pineapple [PINEAPPLE] Allergy Severe TONGUE Verified 05/04/22 15:27 SWELLING strawberry [STRAWBERRY] Allergy Severe ITCHING, Verified 05/04/22 15:27 WELTS ON ARMS Sulfa (Sulfonamide Allergy Severe ANAPHYLAXIS Verified 05/04/22 15:27 Antibiotics) [SULFA (SULFONAMIDE ANTIBIOTICS)] tramadol [TRAMADOL] Allergy Severe SWELLING Verified 05/04/22 15:27 IN THE LEGS adhesive tape Allergy Intermediate red, Verified 05/04/22 15:27 blister, itching gabapentin [GABAPENTIN] Allergy Unknown leg Verified 05/04/22 15:27 swelling NSAIDS (Non-Steroidal Allergy Unknown irritates Verified 05/04/22 15:27 Anti-Inflamma GI tract [NSAIDS (NON-STEROIDAL ANTI-INFLAMMA] sucralfate AdvReac Mild itching Verified 05/04/22 15:27 Exam Vital Signs (past 8 hours): - 05/05/22 02:11 05/05/22 02:11 05/05/22 02:15 Temperature 98.4 F Pulse Rate 111 H Respiratory Rate Blood Pressure 109/78 99/58 L Pulse Oximetry 83 L Oxygen Delivery Method 05/05/22 02:15 05/05/22 02:30 05/05/22 02:35 Temperature 98.4 F 98.4 F Pulse Rate 106 H 108 H Respiratory Rate 19 Blood Pressure Pulse Oximetry 96 38 L 48 L Oxygen Delivery Method 05/05/22 02:36 05/05/22 02:36 05/05/22 02:38 Temperature 98.4 F 98.4 F Pulse Rate 107 H 106 H Respiratory Rate 21 28 H Blood Pressure 106/60 Pulse Oximetry 55 L 99 Oxygen Delivery Method 05/05/22 02:38 05/05/22 02:40 05/05/22 02:45 Temperature 98.4 F 98.6 F Pulse Rate 105 H 108 H Respiratory Rate 17 15 Blood Pressure 101/71 Pulse Oximetry 97 97 Oxygen Delivery Method 05/05/22 02:50 05/05/22 02:55 05/05/22 03:00 Temperature 98.6 F 98.6 F Pulse Rate 107 H 108 H Respiratory Rate 16 14 Blood Pressure 104/71 Pulse Oximetry 99 99 Oxygen Delivery Method 05/05/22 03:00 05/05/22 03:05 05/05/22 03:10 Temperature 98.6 F 98.6 F 98.6 F Pulse Rate 109 H 109 H 113 H Respiratory Rate 18 16 22 Blood Pressure Pulse Oximetry 91 90 L 87 L Oxygen Delivery Method 05/05/22 03:15 05/05/22 03:20 05/05/22 03:25 Temperature 98.6 F 98.6 F 98.6 F Pulse Rate 108 H 109 H 109 H Respiratory Rate 28 H 15 17 Blood Pressure Pulse Oximetry 98 98 98 Oxygen Delivery Method 05/05/22 03:30 05/05/22 03:30 05/05/22 03:47 Temperature 98.8 F 98.8 F Pulse Rate 108 H 109 H Respiratory Rate 20 21 Blood Pressure 89/65 L Pulse Oximetry 98 98 Oxygen Delivery Method 05/05/22 03:47 05/05/22 04:00 05/05/22 04:00 Temperature 99.0 F Pulse Rate 111 H Respiratory Rate 22 Blood Pressure 92/55 L 89/54 L Pulse Oximetry 98 Oxygen Delivery Method 05/05/22 03:00 05/05/22 04:30 05/05/22 04:30 Temperature 99.0 F Pulse Rate 110 H Respiratory Rate 15 Blood Pressure 85/63 L Pulse Oximetry 97 Oxygen Delivery Method Room Air 05/05/22 05:00 05/05/22 05:00 05/05/22 05:30 Temperature 98.8 F Pulse Rate 100 H Respiratory Rate 25 H Blood Pressure 94/64 93/54 L Pulse Oximetry 96 Oxygen Delivery Method 05/05/22 05:30 05/05/22 06:00 05/05/22 06:00 Temperature 98.8 F 98.8 F Pulse Rate 103 H 107 H Respiratory Rate 22 25 H Blood Pressure 99/65 Pulse Oximetry 95 97 Oxygen Delivery Method 05/05/22 06:30 05/05/22 06:30 05/05/22 07:00 Temperature 98.6 F Pulse Rate 104 H Respiratory Rate 11 L Blood Pressure 93/57 L 89/59 L Pulse Oximetry 96 Oxygen Delivery Method 05/05/22 07:00 05/05/22 07:30 05/05/22 07:30 Temperature 98.6 F 98.4 F Pulse Rate 106 H 97 H Respiratory Rate 21 18 Blood Pressure 87/53 L Pulse Oximetry 97 94 Oxygen Delivery Method Oxygen Delivery Method Room Air Narrative Exam Narrative: GEN - alert, cooperative and no distress HEENT - normocephalic and atraumatic, moist mucus membranes NECK - FROM, no adenopathy, no JVD HEART - RRR, S1, S2 normal, no S3 or S4, no murmurs LUNGS - symmetric chest rise, no accessory muscles, clear to auscultation bilaterally ABD - nondistended, normal bowel sounds, soft, nontender and no hepatomegaly, splenomegaly or masses BACK - significant right CVA tenderness EXT - no cyanosis, clubbing or edema SKIN - no rashes or suspicious lesions NEURO - no gross deficits Objective Labs Result Diagrams: 05/05/22 06:20 05/05/22 09:30 Labs: Laboratory Results - last 24 hr 05/04/22 05/04/22 05/04/22 15:32 15:51 15:51 WBC 31.4 H* RBC 4.28 Hgb 13.4 Hct 40.0 MCV 93.4 MCH 31.3 MCHC 33.6 RDW 13.3 Plt Count 704 H Neut % (Auto) Not Reportable Lymph % (Auto) Not Reportable [place] % (Auto) Not Reportable Eos % (Auto) Not Reportable Baso % (Auto) Not Reportable Neut # (Auto) Lymph # (Auto) Not Reportable [place] # (Auto) Not Reportable Eos # (Auto) Baso # (Auto) Not Reportable Total Counted 100 Seg Neutrophils % 60.0 Band Neutrophils % 15.0 H Lymphocytes % (Manual) 17.0 L Atypical Lymphs % 3.0 H Monocytes % (Manual) 2.0 Eosinophils % (Manual) 1.0 L Metamyelocytes % 2.0 H Neutrophils # (Manual) 78716 H RBC Morphology Normal morphology Sodium 131 L Potassium 3.3 L Chloride 96 L Carbon Dioxide 15 L BUN 115 H* Creatinine 2.37 H Estimated GFR 24 L BUN/Creatinine Ratio 48.5 H Glucose 91 Lactate Calcium 8.8 Total Bilirubin 0.3 AST 24 ALT 25 Alkaline Phosphatase 133 H Total Protein 7.6 Albumin 3.8 Globulin 3.8 Albumin/Globulin Ratio 1.0 Lipase 600 H Procalcitonin Urine Color Yellow Urine Appearance Cloudy Urine pH 5.0 Ur Specific [place] 1.020 Urine Protein 1+ H Urine Glucose (UA) Negative Urine Ketones Negative Urine Occult Blood 3+ H Urine Nitrate Negative Urine Bilirubin Negative Urine Urobilinogen 0.2 Ur Leukocyte Esterase 2+ H Urine RBC 5-10/hpf H Urine WBC 30-100/hpf H Ur Squamous Epith Cells 1-5 /hpf D Amorphous Sediment 1+ Urine Bacteria Many (>30) H Ur Culture Indicated? Specimen cultured Nasal Screen MRSA (PCR) Stl C. cayetanensis PCR Stool Rotavirus (PCR) Stool Adenovirus (PCR) Stool Astrovirus (PCR) Stool Cryptosporidium PCR Stl E.coli Shiga Tox PCR St Sh/Enteroin Ecoli PCR Stool E coli O157 PCR Stl Enterotoxigenic E PCR Stool EPEC (PCR) Stl E. histolytica PCR Stool Giardia Lamblia PCR Stool Sapovirus (PCR) Stl P. shigelloides PCR St Y.enterocolitica PCR Stool Vibrio (PCR) Stl Vibrio cholerae PCR Stl Enteroaggr Ecoli PCR Stl Norovirus GI/GII PCR Campylobacter (PCR) C. difficile Tox (PCR) SARS-CoV-2 (PCR) Influenza A (RT-PCR) Influenza B (RT-PCR) RSV (PCR) Salmonella (PCR) 05/04/22 05/04/22 05/04/22 15:51 15:51 16:04 WBC RBC Hgb Hct MCV MCH MCHC RDW Plt Count Neut % (Auto) Lymph % (Auto) [place] % (Auto) Eos % (Auto) Baso % (Auto) Neut # (Auto) Lymph # (Auto) [place] # (Auto) Eos # (Auto) Baso # (Auto) Total Counted Seg Neutrophils % Band Neutrophils % Lymphocytes % (Manual) Atypical Lymphs % Monocytes % (Manual) Eosinophils % (Manual) Metamyelocytes % Neutrophils # (Manual) RBC Morphology Sodium Potassium Chloride Carbon Dioxide BUN Creatinine Estimated GFR BUN/Creatinine Ratio Glucose Lactate 1.8 Calcium Total Bilirubin AST ALT Alkaline Phosphatase Total Protein Albumin Globulin Albumin/Globulin Ratio Lipase Procalcitonin 4.14 H Urine Color Urine Appearance Urine pH Ur Specific [place] Urine Protein Urine Glucose (UA) Urine Ketones Urine Occult Blood Urine Nitrate Urine Bilirubin Urine Urobilinogen Ur Leukocyte Esterase Urine RBC Urine WBC Ur Squamous Epith Cells Amorphous Sediment Urine Bacteria Ur Culture Indicated? Nasal Screen MRSA (PCR) Stl C. cayetanensis PCR Not detected Stool Rotavirus (PCR) Not detected Stool Adenovirus (PCR) Not detected Stool Astrovirus (PCR) Not detected Stool Cryptosporidium PCR Not detected Stl E.coli Shiga Tox PCR Not detected St Sh/Enteroin Ecoli PCR Not detected Stool E coli O157 PCR Not detected Stl Enterotoxigenic E PCR Not detected Stool EPEC (PCR) Not detected Stl E. histolytica PCR Not detected Stool Giardia Lamblia PCR Not detected Stool Sapovirus (PCR) Not detected Stl P. shigelloides PCR Not detected St Y.enterocolitica PCR Not detected Stool Vibrio (PCR) Not detected Stl Vibrio cholerae PCR Not detected Stl Enteroaggr Ecoli PCR Not detected Stl Norovirus GI/GII PCR Not detected Campylobacter (PCR) Not detected C. difficile Tox (PCR) Not detected SARS-CoV-2 (PCR) Influenza A (RT-PCR) Influenza B (RT-PCR) RSV (PCR) Salmonella (PCR) Not detected 05/04/22 05/04/22 05/04/22 16:05 18:55 18:55 WBC RBC Hgb 11.6 L Hct 34.5 L MCV MCH MCHC RDW Plt Count Neut % (Auto) Lymph % (Auto) [place] % (Auto) Eos % (Auto) Baso % (Auto) Neut # (Auto) Lymph # (Auto) [place] # (Auto) Eos # (Auto) Baso # (Auto) Total Counted Seg Neutrophils % Band Neutrophils % Lymphocytes % (Manual) Atypical Lymphs % Monocytes % (Manual) Eosinophils % (Manual) Metamyelocytes % Neutrophils # (Manual) RBC Morphology Sodium 132 L Potassium 4.5 D Chloride 103 Carbon Dioxide 13 L BUN 107 H* Creatinine 1.92 H Estimated GFR 30 L BUN/Creatinine Ratio 55.7 H Glucose 84 Lactate Calcium 7.2 L Total Bilirubin 0.5 AST 26 ALT 21 Alkaline Phosphatase 106 Total Protein 6.2 L Albumin 2.9 L Globulin 3.3 Albumin/Globulin Ratio 0.9 L Lipase Procalcitonin 2.50 H Urine Color Urine Appearance Urine pH Ur Specific [place] Urine Protein Urine Glucose (UA) Urine Ketones Urine Occult Blood Urine Nitrate Urine Bilirubin Urine Urobilinogen Ur Leukocyte Esterase Urine RBC Urine WBC Ur Squamous Epith Cells Amorphous Sediment Urine Bacteria Ur Culture Indicated? Nasal Screen MRSA (PCR) Stl C. cayetanensis PCR Stool Rotavirus (PCR) Stool Adenovirus (PCR) Stool Astrovirus (PCR) Stool Cryptosporidium PCR Stl E.coli Shiga Tox PCR St Sh/Enteroin Ecoli PCR Stool E coli O157 PCR Stl Enterotoxigenic E PCR Stool EPEC (PCR) Stl E. histolytica PCR Stool Giardia Lamblia PCR Stool Sapovirus (PCR) Stl P. shigelloides PCR St Y.enterocolitica PCR Stool Vibrio (PCR) Stl Vibrio cholerae PCR Stl Enteroaggr Ecoli PCR Stl Norovirus GI/GII PCR Campylobacter (PCR) C. difficile Tox (PCR) SARS-CoV-2 (PCR) Negative Influenza A (RT-PCR) Flu a negative Influenza B (RT-PCR) Flu b negative RSV (PCR) Negative Salmonella (PCR) 05/04/22 05/05/22 05/05/22 18:55 02:35 06:20 WBC 24.8 H RBC 3.75 L Hgb 11.7 L Hct 34.7 L MCV 92.3 MCH 31.2 MCHC 33.8 RDW 13.2 Plt Count 602 H Neut % (Auto) Test Fixture Assembler Lymph % (Auto) Test Fixture Assembler [place] % (Auto) Test Fixture Assembler Eos % (Auto) Test Fixture Assembler Baso % (Auto) Test Fixture Assembler Neut # (Auto) Test Fixture Assembler Lymph # (Auto) Test Fixture Assembler [place] # (Auto) Test Fixture Assembler Eos # (Auto) Test Fixture Assembler Baso # (Auto) Test Fixture Assembler Total Counted Seg Neutrophils % Band Neutrophils % Lymphocytes % (Manual) Atypical Lymphs % Monocytes % (Manual) Eosinophils % (Manual) Metamyelocytes % Neutrophils # (Manual) RBC Morphology Sodium Potassium Chloride Carbon Dioxide BUN Creatinine Estimated GFR BUN/Creatinine Ratio Glucose Lactate 0.7 Calcium Total Bilirubin AST ALT Alkaline Phosphatase Total Protein Albumin Globulin Albumin/Globulin Ratio Lipase Procalcitonin Urine Color Urine Appearance Urine pH Ur Specific [place] Urine Protein Urine Glucose (UA) Urine Ketones Urine Occult Blood Urine Nitrate Urine Bilirubin Urine Urobilinogen Ur Leukocyte Esterase Urine RBC Urine WBC Ur Squamous Epith Cells Amorphous Sediment Urine Bacteria Ur Culture Indicated? Nasal Screen MRSA (PCR) Negative for mrsa Stl C. cayetanensis PCR Stool Rotavirus (PCR) Stool Adenovirus (PCR) Stool Astrovirus (PCR) Stool Cryptosporidium PCR Stl E.coli Shiga Tox PCR St Sh/Enteroin Ecoli PCR Stool E coli O157 PCR Stl Enterotoxigenic E PCR Stool EPEC (PCR) Stl E. histolytica PCR Stool Giardia Lamblia PCR Stool Sapovirus (PCR) Stl P. shigelloides PCR St Y.enterocolitica PCR Stool Vibrio (PCR) Stl Vibrio cholerae PCR Stl Enteroaggr Ecoli PCR Stl Norovirus GI/GII PCR Campylobacter (PCR) C. difficile Tox (PCR) SARS-CoV-2 (PCR) Influenza A (RT-PCR) Influenza B (RT-PCR) RSV (PCR) Salmonella (PCR) 05/05/22 05/05/22 09:30 09:30 WBC RBC Hgb Hct MCV MCH MCHC RDW Plt Count Neut % (Auto) Lymph % (Auto) [place] % (Auto) Eos % (Auto) Baso % (Auto) Neut # (Auto) Lymph # (Auto) [place] # (Auto) Eos # (Auto) Baso # (Auto) Total Counted Seg Neutrophils % Band Neutrophils % Lymphocytes % (Manual) Atypical Lymphs % Monocytes % (Manual) Eosinophils % (Manual) Metamyelocytes % Neutrophils # (Manual) RBC Morphology Sodium 136 L Potassium 3.3 L D Chloride 104 Carbon Dioxide 17 L BUN 83 H Creatinine 1.37 H Estimated GFR 46 L BUN/Creatinine Ratio 60.6 H Glucose 103 H Lactate 0.9 Calcium 8.5 Total Bilirubin 0.3 AST 24 ALT 23 Alkaline Phosphatase 140 H Total Protein 6.9 Albumin 3.4 L Globulin 3.5 Albumin/Globulin Ratio 1.0 Lipase Procalcitonin Urine Color Urine Appearance Urine pH Ur Specific [place] Urine Protein Urine Glucose (UA) Urine Ketones Urine Occult Blood Urine Nitrate Urine Bilirubin Urine Urobilinogen Ur Leukocyte Esterase Urine RBC Urine WBC Ur Squamous Epith Cells Amorphous Sediment Urine Bacteria Ur Culture Indicated? Nasal Screen MRSA (PCR) Stl C. cayetanensis PCR Stool Rotavirus (PCR) Stool Adenovirus (PCR) Stool Astrovirus (PCR) Stool Cryptosporidium PCR Stl E.coli Shiga Tox PCR St Sh/Enteroin Ecoli PCR Stool E coli O157 PCR Stl Enterotoxigenic E PCR Stool EPEC (PCR) Stl E. histolytica PCR Stool Giardia Lamblia PCR Stool Sapovirus (PCR) Stl P. shigelloides PCR St Y.enterocolitica PCR Stool Vibrio (PCR) Stl Vibrio cholerae PCR Stl Enteroaggr Ecoli PCR Stl Norovirus GI/GII PCR Campylobacter (PCR) C. difficile Tox (PCR) SARS-CoV-2 (PCR) Influenza A (RT-PCR) Influenza B (RT-PCR) RSV (PCR) Salmonella (PCR) Assessment & Plan Assessment & Plan narrative: Pt is a 57yo woman with fibromyalgia, chronic pain, hypothyroidism, anxiety and depression, HTN, and GERD who presented with diarrhea and right sided back pain. 1) Pyelonephritis with sepsis: Pt hypotensive in the ED, BPs now stabilized with MAP consistently > 60. Creatine and WBC count initially very elevated, now gradually improving. Significant right flank pain. - Continue Zosyn for now, hopeful can narrow once urine culture returns - F/U urine and blood cultures - mIVF at 150cc/hr until tolerating improved PO 2) Gastroenteritis with ileus: Most likely cause of diarrhea, seen on CT scan. C diff negative in addition to remainder of stool PCR. - Clear liquid diet for now, will advance BMs stabilize and pain allows - mIVF as above - Continue Zosyn and Metronidazole as initiated in the ED 3) JUNIOR: Creatinine initially 2.37, now improving. - Continue mIVF - Trend creatinine 4) Fibromyalgia: - Continue home Duloxetine 5) Hypothyroidism: - Continue home Levothyroxine 6) Hypertension: Pts BP low now. - Hold home Lisinopril, Triamterene-HCTZ - Hold home statin 7) Anxiety and depression: - Continue home Paroxetine FEN: Clear diet as above DVT ppx: Lovenox Code: Full Dispo: Pending stabilization, return of cultures to allow narrowing of antibiotics. Anticipate 2 additional midnights. Time Spent With Patient Critical Care time: I spent a total of [] minutes of critical care time on this patient's care today; this time is exclusive of procedural time. Quality VTE Deep Vein Thrombosis/Pulmonary Embolism Present on Admission: No
[2022-05-05 10:14] LABS: Anisocytosis 1+; Neutrophils Absolute Manual 19840 /uL (3000-5900); Total Cells Counted 100
[2022-05-05] MEDS: LACTATED RINGERS 1,000 ML 150 ML IV ×2 (10:19→17:34)
[2022-05-05] MEDS: POTASSIUM CHLORIDE 20 MEQ TAB PO ×2 (10:19→13:00)
[2022-05-05] MEDS: OXYCODONE IR 5 MG TABLET PO ×2 (11:00→17:34)
[2022-05-05] MEDS: ACETAMINOPHEN 325 MG TABLET 650 MG PO (14:10)
[2022-05-05] MEDS: SODIUM CHLORIDE 0.9% 1,000 ML 1000 ML IV (16:22)
[2022-05-06] VITALS (22 sets, daily range): BP systolic 98–134; BP diastolic 57–79; PULSE 79–123; RESP 9–29; TEMP 36.1–36.4; O2SAT 92–100
[2022-05-06] MEDS: OXYCODONE IR 5 MG TABLET PO ×4 (00:09→18:13)
[2022-05-06] MEDS: ONDANSETRON 4 MG/2 ML INJ IV ×2 (00:09→06:22)
[2022-05-06] MEDS: LACTATED RINGERS 1,000 ML 150 ML IV ×4 (00:27→23:01)
--- NOTE | 2022-05-06 00:30 | PC.NURSE ---
Patient with multiple complaints upon entry into room. Specifically back pain and how to treat it. Medicated as necessary, but having to call Dr. Smith for nausea medication. Patient medicated with zofran slowly with nausea improving.
[2022-05-06] MEDS: PIPERACILLIN/TAZO 3.375 GM in SODIUM CHLORIDE 0.9% 100 ML IV ×3 (01:26→18:13)
[2022-05-06] MEDS: LEVOTHYROXINE 112 MCG TABLET PO (05:21)
[2022-05-06 06:02] LABS: Hematocrit 32.7 % (36-46); Hemoglobin 10.9 g/dL (12.0-16.0); Mean Corpuscular HGB Conc 33.3 % (30-36); Mean Corpuscular Hemoglobin 31.1 PG (26-34); Mean Corpuscular Volume 93.2 fL (80-100); Platelet Count 491 X10^3/uL (150-400); Red Blood Cell Count 3.51 X10^6/uL (4.0-5.2); Red Cell Distribution Width 13.5 % (11.6-14.8); White Blood Cell Count 22.9 X10^3/uL (4.5-11.0)
[2022-05-06 06:10] LABS: Add Manual Diff / Slide Review YES
[2022-05-06 06:19] LABS: Alanine Aminotransferase 21 IU/L (<35); Albumin 2.9 g/dL (3.5-5.0); Albumin Globulin Ratio 0.9 (1.0-2.8); Alkaline Phosphatase 110 U/L (38-126); Aspartate Aminotransferase 22 IU/L (14-36); Bilirubin Total 0.3 mg/dL (0.2-1.3); Blood Urea Nitrogen 57 mg/dL (7-17); Calcium 8.5 mg/dL (8.4-10.2); Carbon Dioxide 18 mmol/L (22-32); Chloride 109 mmol/L (98-107); Estimated Glomerular Filt Rate > 60 mL/min (>60); Globulin 3.2 g/dL (1.7-4.1); Glucose 89 mg/dL (70-100); HEMOLYSIS 49 (0-50); Potassium 4.1 mmol/L (3.4-5.1); Sodium 134 mmol/L (137-145); Total Protein 6.1 g/dL (6.3-8.2)
[2022-05-06 06:33] LABS: Neutrophils Absolute Manual 20381 /uL (3000-5900); Total Cells Counted 100
[2022-05-06 06:34] LABS: RBC Morphology Normal Morphology
--- NOTE | 2022-05-06 08:21 | P.PN_ITS ---
Subjective Subjective Date Patient Seen: 05/06/22 Interval history: The pt reports modest improvement in her right flank pain. She is now having discomfort from her lyons catheter. She had three episodes of diarrhea overnight, and has had 2 episodes thus far today. She continues to deny any abdominal pain. Exam Vital Signs (past 8 hours): - 05/06/22 00:30 05/06/22 01:00 05/06/22 01:01 Temperature 97.0 F L Pulse Rate 101 H 104 H 104 H Respiratory Rate 13 9 L 10 L Blood Pressure 126/79 Pulse Oximetry 98 99 99 Oxygen Flow Rate 05/06/22 01:01 05/06/22 01:30 05/06/22 02:00 Temperature Pulse Rate 104 H Respiratory Rate 15 Blood Pressure 126/79 108/57 L 108/57 L Pulse Oximetry 98 Oxygen Flow Rate 05/06/22 02:00 05/06/22 02:30 05/06/22 03:00 Temperature 97.0 F L Pulse Rate 104 H 104 H Respiratory Rate 13 15 Blood Pressure 101/62 101/62 Pulse Oximetry 98 98 Oxygen Flow Rate 05/06/22 03:00 05/06/22 03:30 05/06/22 04:00 Temperature 97.1 F L Pulse Rate 104 H 98 H Respiratory Rate 13 20 Blood Pressure 106/74 106/74 Pulse Oximetry 99 98 Oxygen Flow Rate 05/06/22 04:00 05/06/22 05:00 05/06/22 04:30 Temperature 97.0 F L Pulse Rate 96 H 100 H Respiratory Rate 25 H 17 Blood Pressure 104/72 Pulse Oximetry 97 95 96 Oxygen Flow Rate 0 05/06/22 05:00 05/06/22 05:00 05/06/22 05:30 Temperature Pulse Rate 102 H 100 H Respiratory Rate 17 23 Blood Pressure 104/72 Pulse Oximetry 97 96 Oxygen Flow Rate 05/06/22 06:05 05/06/22 06:30 05/06/22 07:00 Temperature 97.1 F L Pulse Rate 123 H 104 H 105 H Respiratory Rate 22 14 29 H Blood Pressure 104/70 Pulse Oximetry 96 99 98 Oxygen Flow Rate 05/06/22 07:30 05/06/22 08:00 Temperature Pulse Rate 102 H 107 H Respiratory Rate 25 H 24 Blood Pressure Pulse Oximetry 98 97 Oxygen Flow Rate Oxygen Delivery Method Room Air Oxygen Flow Rate 0 Narrative Exam Narrative: Gen: NAD, sitting comfortably in bed, appears well CV: RRR, no murmurs Resp: clear to auscultation bilaterally Abd: soft, nontender, nondistended Ext: no edema Objective Labs Result Diagrams: 05/06/22 05:30 05/06/22 05:30 Labs: Laboratory Results - last 24 hr 05/05/22 05/05/22 05/05/22 06:20 09:30 09:30 WBC 24.8 H RBC 3.75 L Hgb 11.7 L Hct 34.7 L MCV 92.3 MCH 31.2 MCHC 33.8 RDW 13.2 Plt Count 602 H Neut % (Auto) [employer] Lymph % (Auto) [employer] [place] % (Auto) [employer] Eos % (Auto) [employer] Baso % (Auto) [employer] Neut # (Auto) [employer] Lymph # (Auto) [employer] [place] # (Auto) [employer] Eos # (Auto) [employer] Baso # (Auto) [employer] Total Counted 100 Seg Neutrophils % 71.0 H Band Neutrophils % 9.0 H Lymphocytes % (Manual) 10.0 L Atypical Lymphs % 2.0 H Monocytes % (Manual) 6.0 Metamyelocytes % 2.0 H Myelocytes % Neutrophils # (Manual) 13379 H RBC Morphology Not Reportable Anisocytosis 1+ H Sodium 136 L Potassium 3.3 L D Chloride 104 Carbon Dioxide 17 L BUN 83 H Creatinine 1.37 H Estimated GFR 46 L BUN/Creatinine Ratio 60.6 H Glucose 103 H Lactate 0.9 Calcium 8.5 Total Bilirubin 0.3 AST 24 ALT 23 Alkaline Phosphatase 140 H Total Protein 6.9 Albumin 3.4 L Globulin 3.5 Albumin/Globulin Ratio 1.0 05/06/22 05/06/22 05:30 05:30 WBC 22.9 H RBC 3.51 L Hgb 10.9 L Hct 32.7 L MCV 93.2 MCH 31.1 MCHC 33.3 RDW 13.5 Plt Count 491 H Neut % (Auto) Not Reportable Lymph % (Auto) Not Reportable [place] % (Auto) Not Reportable Eos % (Auto) Not Reportable Baso % (Auto) Not Reportable Neut # (Auto) Lymph # (Auto) Not Reportable [place] # (Auto) Not Reportable Eos # (Auto) Baso # (Auto) Not Reportable Total Counted 100 Seg Neutrophils % 74.0 H Band Neutrophils % 15.0 H Lymphocytes % (Manual) 3.0 L Atypical Lymphs % Monocytes % (Manual) 6.0 Metamyelocytes % 1.0 H Myelocytes % 1.0 H Neutrophils # (Manual) 29236 H RBC Morphology Normal morphology Anisocytosis Sodium 134 L Potassium 4.1 Chloride 109 H Carbon Dioxide 18 L BUN 57 H Creatinine 0.89 Estimated GFR > 60 BUN/Creatinine Ratio 64.0 H Glucose 89 Lactate Calcium 8.5 Total Bilirubin 0.3 AST 22 ALT 21 Alkaline Phosphatase 110 Total Protein 6.1 L Albumin 2.9 L Globulin 3.2 Albumin/Globulin Ratio 0.9 L PFSH Medical History (Updated 05/05/22 @ 04:33 by Marvin Lundberg DO) Anemia Anxiety Chicken pox (1978) Depression Fibromyalgia Foot pain (2012) Gastric ulcer (01/24/10) Hypertension Hypothyroidism Irregular periods/menstrual cycles Mumps (1969) Osteoarthritis Recurrent sinusitis Surgical History Anesthesia History of incisional hernia repair (01/17/13) History of surgery (12/2015) Hx of abdominal surgery (01/24/10) Status post appendectomy (1977) Status post delivery (08/28/00) Status post right foot surgery (06/19/15) Family History Grandmother Hypertension Stroke Mother Age: 78 Hypertension Mental health problem Stroke Sister Age: 50 Hypertension High cholesterol Mental health problem Father Traffic accident Grandfather Swallowed foreign body Grandfather No problems noted. Grandmother No problems noted. Sister No problems noted. 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 seatbelt use: always helmet use: Yes water heater temp set < 120 deg: Yes working smoke detector in home: Yes fire extinguisher in home: Yes carbon monox detector in home: Yes firearms in home: No Smoking Status: Current every day smoker quit status: quit date established during the past year weight has: increased > 10 lbs well-balanced diet: daily or most days daily servings fruits/ve-4 caffeine: Yes eating out: 1-3 times/week Assessment & Plan Assessment & Plan narrative: Pt is a 57yo woman with fibromyalgia, chronic pain, hypothyroidism, anxiety and depression, HTN, and GERD who presented with diarrhea and right sided back pain. 1)? Pyelonephritis with sepsis:? Pt hypotensive in the ED, BPs now stabilized. Creatinine now normalized. WBC count remains elevated, but trending down. Significant right flank pain persists. - Continue Zosyn for now, hopeful can narrow once urine culture returns - F/U urine and blood cultures - blood culture negative thus far - mIVF at 150cc/hr until tolerating improved PO - Okay to d/c lyons catheter 2)? Gastroenteritis with ileus:? Most likely cause of diarrhea, seen on CT scan.? C diff negative in addition to remainder of stool PCR. - Full liquid diet for now, will advance BMs stabilize and pain allows - mIVF as above - Continue Zosyn 3)? JUNIOR:? Creatinine initially 2.37, now normalized. - Continue mIVF - Trend creatinine 4)? Fibromyalgia: - Continue home Duloxetine 5)? Hypothyroidism: - Continue home Levothyroxine 6)? Hypertension:? Pts BP low now. - Hold home Lisinopril, Triamterene-HCTZ - Restart home Atorvastatin 7)? Anxiety and depression: - Continue home Paroxetine FEN:? Clear diet as above DVT ppx:? Lovenox Code:? Full Dispo:? Pending stabilization, return of cultures to allow narrowing of antibiotics.? Would like to see WBC count improving significantly. PT consulted to help improve mobilization/strength, however do not anticipate d/c needs at this point. Time Spent With Patient Critical Care time: I spent a total of [] minutes of critical care time on this patient's care today; this time is exclusive of procedural time. Quality VTE Deep Vein Thrombosis/Pulmonary Embolism Present on Admission: No
[2022-05-06] MEDS: metroNIDAZOLE 500 MG/100 ML PIGGYBACK 100 MG IV (09:16)
[2022-05-06] MEDS: PANTOPRAZOLE 40 MG VIAL IV (09:16)
[2022-05-06] MEDS: ENOXAPARIN 40 MG/0.4 ML SYRINGE SUBCUT (09:16)
[2022-05-06] MEDS: PARoxetine 20 MG TABLET PO (09:17)
--- NOTE | 2022-05-06 16:24 | PT.IIE ---
Current Diagnoses Sepsis, unspecified organism (05/05/22) Surgical History (Last Reviewed 06/21/21 @ 20:01 by Deven Smart MD) Anesthesia History of incisional hernia repair (01/17/13) History of surgery (12/2015) Hx of abdominal surgery (01/24/10) Status post appendectomy (1977) Status post delivery (08/28/00) Status post right foot surgery (06/19/15) Medical History (Last Reviewed 05/04/22 @ 15:35 by Braulio Reed DO) Anemia Anxiety Chicken pox (1978) Depression Fibromyalgia Foot pain (2012) Gastric ulcer (01/24/10) Hypertension Hypothyroidism Irregular periods/menstrual cycles Mumps (1969) Osteoarthritis Recurrent sinusitis Physical Therapy Inpatient Evaluation/Re-Eval M1 PT/OT-IP Prior Functional Status Start: 05/06/22 14:49 Freq: NEEDED Status: Active Protocol: Document 05/06/22 15:51 LRN (Rec: 05/06/22 16:22 LRN [id number]) Medical Review Prior Functional Status Medical History Reviewed Yes Communication Normal Mobility and Gait Independent without assistive device most of the time. Activities of Daily Living and IADL's Independent but difficulty with stairs and ambulation due to fatigue and soreness from pt reported Fibromyalgia. Social History Household Members spouse,family,children Living Arrangements House Number of Floors (Floors) Two Floors Number of Stairs To Enter/Railing? 7 Home Environment Standard Height Toilet,Tub/ Shower Employment Status Unemployed Additional Social History Comment Lives with spouse and autistic adult son. Pt reports she takes care of her son. M2 PT-IP Current Condition Start: 05/06/22 14:49 Freq: NEEDED Status: Active Protocol: Document 05/06/22 15:51 LRN (Rec: 05/06/22 16:22 LRN [id number]) Physical Therapy Current Condition Current Condition Evaluation Date 05/06/22 Treatment Diagnosis Right sided back pain, diarrhea, UTI symptoms. Onset Date Admit 05/04/22 M3 PT-IP Subjective Start: 05/06/22 14:49 Freq: NEEDED Status: Active Protocol: Document 05/06/22 15:51 LRN (Rec: 05/06/22 16:22 LRN [id number]) Subjective Physical Therapy Visit Type Type Initial Evaluation Visit Start Time 15:20 Visit Stop Time 15:51 Total Visit Minutes 31 Notes 1 Physical Therapy Visit Comments Patient Comments Pt agreeable to getting up. Reports L wrist pain when moving around in bed and lateral foot pain bilaterally with gait. Pt requests a gown for backside because she won' t be able to stand tying the gown up because it'll be too tight and she states she can't stand tight things around her . Pt c/o back pain (R>L) rated 5/10, no change after gait. Patient Goals Pt goal is to be able to go home. Therapy Pain Assessment Location R Flank Intensity 5 Scale Used Numeric (0 - 10) M4 PT-IP Mobility and Gait Start: 05/06/22 14:49 Freq: NEEDED Status: Active Protocol: Document 05/06/22 15:51 LRN (Rec: 05/06/22 16:22 LRN [id number]) PT-Bed Mobility Assessment Scooting Scooting to Edge of Bed Independent Scooting Up and Down in Bed Standby Assistance PT-Transfer Assessment Sit to and From Stand Sit to and from Stand Independent Equipment Transfer Assistive Device None,Front Wheeled Walker Transfers Transfer Destination Bed Transfer Ability Level of Assist Independent Comments Mobility Comments Pt able to mobilize out of bed with head of bed almost maximally elevated to pt's liking. Pt requested no change in bed positioning. Gait Assessment Gait Gait Assistance Required: Independent,Standby Assistance Distance (Feet) 60 Assistive Devices Assistive Device Gait Belt,Front Wheeled Walker Orthotic/Prosthetic Devices or Brace: No Gait Deviations General Gait Pattern Decreased Stride Length,Flexed Trunk,Wide Based Gait Factors Limiting Gait Function Factors Limiting Gait Function Decreased Activity Tolerance, Decreased Strength,Pain,Poor Balance PT-Balance Assessment Sitting Balance and Reactions Static Sitting Balance Ability Normal Dynamic Sitting Balance Ability Normal Standing Balance and Reactions Static Standing Balance Ability Good Dynamic Standing Balance Ability Good Device Used FWW M5 PT-IP Objective Assessments Start: 05/06/22 14:49 Freq: NEEDED Status: Active Protocol: Document 05/06/22 15:51 LRN (Rec: 05/06/22 16:22 LRN [id number]) Orientation Orientation/Cognition Level of Alertness Alert Orientation Name,Month,Date,Year,Place, Situation Language Function Ability No Deficits Noted Safety Awareness Understands Safety Issues Memory Description No Deficits Noted Gross Range of Motion Upper Extremity ROM Assessment Within Functional Limits Lower Extremity ROM Assessment Within Functional Limits Strength Upper Extremity Strength Assessment Within Functional Limits Lower Extremity Strength Assessment Within Functional Limits Comments Strength Comments R ankle IV slightly limited due to pain. L Wrist flex/Ext strength limited due to Pain at lateral side of wrist. Flex/Ext 4+/5 , RD/UD 4/5. M6 PT-IP Treatment Start: 05/06/22 14:49 Freq: NEEDED Status: Active Protocol: Document 05/06/22 15:51 LRN (Rec: 05/06/22 16:22 LRN [id number]) Physical Therapy Treatment Other Treatments Other Treatment Performed Transfer training for placement and positioning of the L hand/wrist to eliminate wrist pain with scooting in bed. Pt was returned to bed with tray table and call light within reach. M7 PT-IP Assessment and Plan Start: 05/06/22 14:49 Freq: NEEDED Status: Active Protocol: Document 05/06/22 15:51 LRN (Rec: 05/06/22 16:22 LRN [id number]) PT Summary Assessment and Plan Potential Rehabilitation Potential Excellent Status of Condition at Evaluation Evolving Summary Impairments Pain,Strength,Balance,Gait, Activity Tolerance Assessment Summary Pt is a 57 yo female who is independent with mobility transfer in/out of bed and needs SBA with gait due to IV lines. The pt is limited in her activity tolerance due to low endurance; therefore although her LE strength is good, stair anbulation is expected to be challenging due to decreased strength and endurance due to bedrest. The pt is expected to progress without difficulty and should be able to DC home withn spouse to provide SBA> independent assist. Goals Bed Mobility Goal Independent Transfer Goal Independent Gait Goal Independent Gait Distance 150+ ft Other Goals Independently ascend/descend 7 stairs (4 steps x 2) with bilateral railing, stand rest stops as needed. Frequency of Treatment Frequency Of Treatment Once a Day Treatment Plan Physical Therapy Treatment Plan Bed Mobility Training,Gait Training Other Recommendations and Next Treatment Stair training. Focus Review L hand (fist)/wrist ( neutral) positioning when moving in bed to eliminate L wrist pain. Precautions Other Precautions Pt does not like things tight around her body. Weight Bearing Status Weight Bearing Status Full Weight Bearing Recommendations To Nursing Amount of Assist Needed Standby Assistance,1 Person Assist Discharge Recommendations PT Discharge Recommendations Home with Assistance Other Discharge Recommendations Pt currently needs SB of one, but expect by DC she will be safe & independent with transfers and gait. Equipment Needed for Home Before FWW? Discharge Transportation Needs at Discharge Private Vehicle
[2022-05-06] MEDS: ATORVASTATIN 20 MG TABLET 40 MG PO (21:13)
[2022-05-06] MEDS: DULOXETINE 30 MG CAPSULE 60 MG PO (21:13)
[2022-05-06] MEDS: HYDROMORPHONE 1 MG INJ IV (21:14)
[2022-05-07] VITALS (7 sets, daily range): BP systolic 119–147; BP diastolic 78–100; PULSE 98–128; RESP 15–20; TEMP 35.8–36.8; O2SAT 94–99
[2022-05-07] MEDS: PIPERACILLIN/TAZO 3.375 GM in SODIUM CHLORIDE 0.9% 100 ML IV ×3 (02:30→18:11)
[2022-05-07] MEDS: LACTATED RINGERS 1,000 ML 150 ML IV ×2 (05:57→18:16)
[2022-05-07] MEDS: LEVOTHYROXINE 112 MCG TABLET PO (05:57)
[2022-05-07] MEDS: PANTOPRAZOLE DR 40 MG TABLET PO (05:57)
[2022-05-07 06:27] LABS: Alanine Aminotransferase 23 IU/L (<35); Alkaline Phosphatase 114 U/L (38-126); Aspartate Aminotransferase 30 IU/L (14-36); BUN Creatinine Ratio 26.5 (6-22); Bilirubin Total 0.1 mg/dL (0.2-1.3); Blood Urea Nitrogen 18 mg/dL (7-17); Calcium 8.5 mg/dL (8.4-10.2); Carbon Dioxide 25 mmol/L (22-32); Chloride 106 mmol/L (98-107); Estimated Glomerular Filt Rate > 60 mL/min (>60); Globulin 3.1 g/dL (1.7-4.1); Glucose 108 mg/dL (70-100); HEMOLYSIS < 15 (0-50); Potassium 3.7 mmol/L (3.4-5.1); Sodium 141 mmol/L (137-145); Total Protein 6.1 g/dL (6.3-8.2)
[2022-05-07 06:55] LABS: Hematocrit 32.3 % (36-46); Hemoglobin 10.6 g/dL (12.0-16.0); Mean Corpuscular HGB Conc 32.8 % (30-36); Mean Corpuscular Volume 94.7 fL (80-100); Platelet Count 560 X10^3/uL (150-400); Red Blood Cell Count 3.41 X10^6/uL (4.0-5.2); Red Cell Distribution Width 13.4 % (11.6-14.8); White Blood Cell Count 19.5 X10^3/uL (4.5-11.0)
[2022-05-07 06:57] LABS: Add Manual Diff / Slide Review YES
[2022-05-07 07:44] LABS: Neutrophils Absolute Manual 15015 /uL (3000-5900); Total Cells Counted 100
[2022-05-07 07:45] LABS: RBC Morphology Normal Morphology
--- NOTE | 2022-05-07 08:31 | PM.PN.1 ---
Subjective Subjective Date Patient Seen: 05/07/22 Interval history: The pt reports feeling improved this morning. Her back pain is still present but not as severe. She does continue to have watery diarrhea, but feels the color has improved. She continues to deny any abdominal pain, SOB, chest pain. She has been able to urinate without difficulty or dysuria. Exam Vital Signs (past 8 hours): - 05/07/22 03:35 Temperature 98.2 F Pulse Rate 111 H Respiratory Rate 20 Blood Pressure 125/83 Pulse Oximetry 98 Oxygen Flow Rate 0 Oxygen Delivery Method Room Air Oxygen Flow Rate 0 Narrative Exam Narrative: Gen:? NAD, sitting comfortably in bed, appears well CV:? RRR, no murmurs Resp:? clear to auscultation bilaterally Abd:? soft, nontender, nondistended Ext:? no edema Back: minimal right CVA tenderness Objective Labs Result Diagrams: 05/07/22 05:38 05/07/22 05:38 Labs: Laboratory Results - last 24 hr 05/04/22 05/07/22 05/07/22 15:32 05:38 05:38 WBC 19.5 H RBC 3.41 L Hgb 10.6 L Hct 32.3 L MCV 94.7 MCH 31.0 MCHC 32.8 RDW 13.4 Plt Count 560 H Neut % (Auto) Not Reportable Lymph % (Auto) Not Reportable [place] % (Auto) Not Reportable Eos % (Auto) Not Reportable Baso % (Auto) Not Reportable Lymph # (Auto) Not Reportable [place] # (Auto) Not Reportable Baso # (Auto) Not Reportable Total Counted 100 Seg Neutrophils % 73.0 H Band Neutrophils % 4.0 Lymphocytes % (Manual) 14.0 L D Atypical Lymphs % 2.0 H Monocytes % (Manual) 5.0 Metamyelocytes % 1.0 H Myelocytes % 1.0 H Neutrophils # (Manual) 74605 H RBC Morphology Normal morphology Sodium 141 Potassium 3.7 Chloride 106 Carbon Dioxide 25 BUN 18 H Creatinine 0.68 Estimated GFR > 60 BUN/Creatinine Ratio 26.5 H Glucose 108 H Calcium 8.5 Total Bilirubin 0.1 L AST 30 ALT 23 Alkaline Phosphatase 114 Total Protein 6.1 L Albumin 3.0 L Globulin 3.1 Albumin/Globulin Ratio 1.0 Ref Test (Refrig) Comment PFSH Medical History (Updated 05/05/22 @ 04:33 by Marvin Lundberg DO) Anemia Anxiety Chicken pox (1978) Depression Fibromyalgia Foot pain (2012) Gastric ulcer (01/24/10) Hypertension Hypothyroidism Irregular periods/menstrual cycles Mumps (1969) Osteoarthritis Recurrent sinusitis Surgical History Anesthesia History of incisional hernia repair (01/17/13) History of surgery (12/2015) Hx of abdominal surgery (01/24/10) Status post appendectomy (1977) Status post delivery (08/28/00) Status post right foot surgery (06/19/15) Family History Grandmother Hypertension Stroke Mother Age: 78 Hypertension Mental health problem Stroke Sister Age: 50 Hypertension High cholesterol Mental health problem Father Traffic accident Grandfather Swallowed foreign body Grandfather No problems noted. Grandmother No problems noted. Sister No problems noted. 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 seatbelt use: always helmet use: Yes water heater temp set < 120 deg: Yes working smoke detector in home: Yes fire extinguisher in home: Yes carbon monox detector in home: Yes firearms in home: No Smoking Status: Current every day smoker quit status: quit date established during the past year weight has: increased > 10 lbs well-balanced diet: daily or most days daily servings fruits/ve-4 caffeine: Yes eating out: 1-3 times/week Assessment & Plan Assessment & Plan narrative: Pt is a 57yo woman with fibromyalgia, chronic pain, hypothyroidism, anxiety and depression, HTN, and GERD who presented with diarrhea and right sided back pain. 1)? Sepsis:? Pt hypotensive in the ED, BPs now stable.? Creatinine normalized.? WBC count remains elevated, but continues to trend down. Right flank pain improving. Originally thought to be due to pyelonephritis, however urine culture has now returned negative. Blood cultures negative x 48hrs. Unclear source, possibly GI. Reconsider C diff despite normal initial testing, as diarrhea persists. - Continue Zosyn - mIVF at 150cc/hr as pt remains tachycardic - Repeat C diff testing 2)? Gastroenteritis with ileus:? Most likely cause of diarrhea, seen on CT scan.? Initial C diff negative in addition to remainder of stool PCR. - Continue full liquid diet for now, will advance BMs stabilize and pain allows - mIVF as above - Continue Zosyn 3)? JUNIOR:? Creatinine initially 2.37, now normalized. - Continue mIVF - Trend creatinine 4)? Fibromyalgia: - Continue home Duloxetine 5)? Hypothyroidism: - Continue home Levothyroxine 6)? Hypertension:? Pts BP low now. - Hold home Lisinopril, Triamterene-HCTZ - Restart home Atorvastatin 7)? Anxiety and depression: - Continue home Paroxetine FEN:? Clear diet as above DVT ppx:? Lovenox Code:? Full Dispo:? Pending continued normalization of WBC count, repeat C diff testing.? Potentially ready for d/c tomorrow. Should be okay to d/c home. Time Spent With Patient Critical Care time: I spent a total of [] minutes of critical care time on this patient's care today; this time is exclusive of procedural time. Quality VTE Deep Vein Thrombosis/Pulmonary Embolism Present on Admission: No
[2022-05-07] MEDS: OXYCODONE IR 5 MG TABLET PO ×3 (09:08→20:24)
[2022-05-07] MEDS: ENOXAPARIN 40 MG/0.4 ML SYRINGE SUBCUT (09:08)
[2022-05-07] MEDS: PARoxetine 20 MG TABLET PO (09:08)
--- NOTE | 2022-05-07 15:35 | PT.IPTN ---
Current Diagnoses Sepsis, unspecified organism (05/05/22) Physical Therapy Treatment Note M2 PT-IP Current Condition Start: 05/06/22 14:49 Freq: NEEDED Status: Active Protocol: Document 05/06/22 15:51 LRN (Rec: 05/06/22 16:22 LRN [id number]) Physical Therapy Current Condition Current Condition Evaluation Date 05/06/22 Treatment Diagnosis Right sided back pain, diarrhea, UTI symptoms. Onset Date Admit 05/04/22 M3 PT-IP Subjective Start: 05/06/22 14:49 Freq: NEEDED Status: Active Protocol: Document 05/07/22 15:24 LJ (Rec: 05/07/22 15:35 LJ [id number]) Subjective Physical Therapy Visit Type Type Treatment Note Visit Start Time 15:09 Visit Stop Time 15:20 Total Visit Minutes 11 Notes Nursing reports pt up and moving in room independently to toilet. Physical Therapy Visit Comments Patient Comments Pt agreeable to do PT Patient Goals Pt goal is to be able to go home. M4 PT-IP Mobility and Gait Start: 05/06/22 14:49 Freq: NEEDED Status: Active Protocol: Document 05/07/22 15:24 LJ (Rec: 05/07/22 15:35 LJ [id number]) PT-Bed Mobility Assessment Scooting Scooting to Edge of Bed Independent Scooting Up and Down in Bed Independent PT-Transfer Assessment Sit to and From Stand Sit to and from Stand Independent Equipment Transfer Assistive Device Gait Belt Transfers Transfer Destination Bed Transfer Ability Level of Assist Independent Comments Mobility Comments Pt independent with all mobility. Gait Assessment Gait Gait Assistance Required: Independent Distance (Feet) 200 Assistive Devices Assistive Device Gait Belt Orthotic/Prosthetic Devices or Brace: No Gait Deviations General Gait Pattern Within Normal Limits Factors Limiting Gait Function Factors Limiting Gait Function Decreased Activity Tolerance, Decreased Strength,Pain,Poor Balance Comments Gait Comments Pt ambulated from room to stairs then around nursing station pushing the IV pole. Gait appears normal and pt had no LOB or c/o pain or weakness. Stair Climbing Assessment Evaluation Level of Assist On Stairs Independent Devices Stair Climbing Assistive Devices Left Railing,Right Railing Technique/Endurance Stair Climbing Direction Ascend and Descend Stair Climbing Technique Step Over Step Number of Steps Climbed 3 Stair Climbing Set # Repetitions (reps) 3 Comments Stair Climbing Comments Pt able to safely navigate stairs without issue M5 PT-IP Objective Assessments Start: 05/06/22 14:49 Freq: NEEDED Status: Active Protocol: Document 05/06/22 15:51 LRN (Rec: 05/06/22 16:22 LRN [id number]) Orientation Orientation/Cognition Level of Alertness Alert Orientation Name,Month,Date,Year,Place, Situation Language Function Ability No Deficits Noted Safety Awareness Understands Safety Issues Memory Description No Deficits Noted Gross Range of Motion Upper Extremity ROM Assessment Within Functional Limits Lower Extremity ROM Assessment Within Functional Limits Strength Upper Extremity Strength Assessment Within Functional Limits Lower Extremity Strength Assessment Within Functional Limits Comments Strength Comments R ankle IV slightly limited due to pain. L Wrist flex/Ext strength limited due to Pain at lateral side of wrist. Flex/Ext 4+/5 , RD/UD 4/5. M6 PT-IP Treatment Start: 05/06/22 14:49 Freq: NEEDED Status: Active Protocol: Document 05/07/22 15:24 LJ (Rec: 05/07/22 15:35 LJ [id number]) Physical Therapy Treatment Education Education Provided Safety M7 PT-IP Assessment and Plan Start: 05/06/22 14:49 Freq: NEEDED Status: Active Protocol: Document 05/07/22 15:24 LJ (Rec: 05/07/22 15:35 LJ [id number]) PT Summary Assessment and Plan Potential Rehabilitation Potential Excellent Status of Condition at Evaluation Evolving Summary Impairments Pain,Strength,Balance,Gait, Activity Tolerance Assessment Summary Pt demonstrates safe mobility and gait independently. Safe to DC home with spouse to assist as needed. Notified telephonic nurse case manager and nursing of PT discharge. Goals Bed Mobility Goal Independent Transfer Goal Independent Gait Goal Independent Gait Distance 150+ ft Other Goals Independently ascend/descend 7 stairs (4 steps x 2) with bilateral railing, stand rest stops as needed. Frequency of Treatment Frequency Of Treatment Once a Day Weight Bearing Status Weight Bearing Status Full Weight Bearing Recommendations To Nursing Amount of Assist Needed Independent Discharge Recommendations PT Discharge Recommendations Home with Assistance Transportation Needs at Discharge Private Vehicle
[2022-05-07] MEDS: ATORVASTATIN 20 MG TABLET 40 MG PO (20:24)
[2022-05-07] MEDS: DULOXETINE 30 MG CAPSULE 60 MG PO (20:24)
[2022-05-07] MEDS: HYDROMORPHONE 1 MG INJ IV (22:52)
[2022-05-08] MEDS: LACTATED RINGERS 1,000 ML 150 ML IV ×2 (01:24→08:01)
[2022-05-08] MEDS: PIPERACILLIN/TAZO 3.375 GM in SODIUM CHLORIDE 0.9% 100 ML IV (02:56)
[2022-05-08 04:00] VITALS: BP 135/83; PULSE 102; RESP 20; TEMP 36.3; O2SAT 99
[2022-05-08] MEDS: LEVOTHYROXINE 112 MCG TABLET PO (06:24)
[2022-05-08] MEDS: PANTOPRAZOLE DR 40 MG TABLET PO (06:24)
[2022-05-08 07:14] LABS: Hematocrit 30.5 % (36-46); Hemoglobin 10.3 g/dL (12.0-16.0); Mean Corpuscular HGB Conc 33.6 % (30-36); Mean Corpuscular Hemoglobin 31.4 PG (26-34); Mean Corpuscular Volume 93.4 fL (80-100); Platelet Count 548 X10^3/uL (150-400); Red Blood Cell Count 3.27 X10^6/uL (4.0-5.2); Red Cell Distribution Width 13.4 % (11.6-14.8); White Blood Cell Count 18.6 X10^3/uL (4.5-11.0)
[2022-05-08 07:15] LABS: Add Manual Diff / Slide Review YES
[2022-05-08 07:21] LABS: BUN Creatinine Ratio 11.3 (6-22); Blood Urea Nitrogen 6 mg/dL (7-17); Calcium 8.2 mg/dL (8.4-10.2); Carbon Dioxide 25 mmol/L (22-32); Chloride 104 mmol/L (98-107); Estimated Glomerular Filt Rate > 60 mL/min (>60); Glucose 105 mg/dL (70-100); HEMOLYSIS < 15 (0-50); Potassium 3.4 mmol/L (3.4-5.1); Sodium 138 mmol/L (137-145)
--- NOTE | 2022-05-08 07:36 | PC.NURSE ---
Patient had a soft BM in toilet with bright red blood and what appeared to be some blood clots. Also, small abrasion noted to inner left labia that patient stated was from the urinary catheter with temp prob she had in while in ICU. Hat in toilet to collect next BM.
[2022-05-08 08:00] VITALS: BP 130/83; PULSE 91; RESP 17; TEMP 36.2; O2SAT 100
[2022-05-08] MEDS: OXYCODONE IR 5 MG TABLET PO ×2 (08:00→13:21)
[2022-05-08] MEDS: PARoxetine 20 MG TABLET PO (08:00)
[2022-05-08] MEDS: ENOXAPARIN 40 MG/0.4 ML SYRINGE SUBCUT (08:00)
--- NOTE | 2022-05-08 08:02 | PT.IPTN ---
Current Diagnoses Sepsis, unspecified organism (05/05/22) Physical Therapy Treatment Note M2 PT-IP Current Condition Start: 05/06/22 14:49 Freq: NEEDED Status: Active Protocol: Document 05/06/22 15:51 LRN (Rec: 05/06/22 16:22 LRN [id number]) Physical Therapy Current Condition Current Condition Evaluation Date 05/06/22 Treatment Diagnosis Right sided back pain, diarrhea, UTI symptoms. Onset Date Admit 05/04/22 M3 PT-IP Subjective Start: 05/06/22 14:49 Freq: NEEDED Status: Active Protocol: Document 05/08/22 08:01 AB (Rec: 05/08/22 08:02 AB [id number]) Subjective Physical Therapy Visit Type Type Administrative Note Notes REHABILITATION SERVICES COUNSELOR informed that pt is independent with mobility. 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 M7 PT-IP Assessment and Plan Start: 05/06/22 14:49 Freq: NEEDED Status: Active Protocol: Document 05/08/22 08:01 AB (Rec: 05/08/22 08:02 AB [id number]) PT Summary Assessment and Plan Frequency of Treatment Frequency Of Treatment Discharge
[2022-05-08 08:05] LABS: Neutrophils Absolute Manual 12090 /uL (3000-5900); Nucleated Red Blood Cells 9 #/Diff; Total Cells Counted 100
[2022-05-08 08:06] LABS: RBC Morphology Normal Morphology
--- NOTE | 2022-05-08 08:17 | P.DS_ITS ---
History of Present Illness History of Present Illness Chief complaint: Diarhea x7 / Rt Flank pain / UTI sym Discharge Providers Provider Date of admission: 05/05/22 01:11 Discharge Date: 05/08/22 Primary care physician: Abbey Patel MD Consults: 05/04/22 17:57 Consult After Hours PICC Line RN Stat Comment: 05/06/22 14:02 Consult to Physical Therapy Evaluate & Treat Comment: Physician Instructions: Evaluate and Treat Discharge provider: Alex Jackson MD Summary Hospital Course Discharge Diagnosis: Sepsis without shock due to gastroenteritis Gastroenteritis with ileus Acute kidney injury Hypertension Hypothyroidism Anxiety and depression Fibromyalgia Hospital Course: Patient was admitted to the hospital with an significantly elevated white blood cell count tachycardia and fever. She was admitted with concerns of sepsis due to clinical indicators. There was initial concerns because of her pain and discomfort that maybe she had pyelonephritis. Her urine culture eventually was negative. CT scan was done which revealed gastro intestinal inflammation had ileus consistent with gastroenteritis. Patient underwent stool evaluation for infection which was negative. Repeat stool evaluation is underway. Patient initially had lots of liquid diarrhea and some blood. That transition to the day of discharge where she is having infrequent bowel movements with a little bit of blood and blood clots. Her abdominal pain is significantly improved. Her white blood cell count has improved. Her kidney injury has improved. During her hospital stay she was placed on a clear liquid diet she had vital signs monitored regularly she had repeat blood testing done. She did not have any significant high volume gastrointestinal bleeding hemoglobin hematocrit remained stable. Her pain was controlled with oral pain medication. Her diet was advanced. She was up moving to the bathroom without difficulty and stable for discharge. Exam Vital Signs (past 8 hours): - 05/08/22 04:00 Temperature 97.3 F L Pulse Rate 102 H Respiratory Rate 20 Blood Pressure 135/83 Pulse Oximetry 99 Oxygen Flow Rate 0 Oxygen Delivery Method Room Air Oxygen Flow Rate 0 Narrative Exam Narrative: Gen.: Alert and oriented x3 no apparent distress. HEENT: NCAT PERRLA tympanic membranes are clear nares are patent oral mucosa is moist no tonsillar hypertrophy neck is supple without lymphadenopathy no thyroid enlargement. Cardio: S1-S2 regular rate and rhythm no murmurs appreciated. Respiratory: Lungs are clear to auscultation no wheezes or crackles normal respiratory effort. Abdomen: Soft nontender no rebound or guarding no liver spleen enlargement no appreciable hernias Extremities: Full range of motion no appreciable weakness no cyanosis or edema. Neurologic: Grossly intact. Objective Labs Result Diagrams: 05/08/22 06:51 05/08/22 06:51 Labs: Laboratory Results - last 24 hr 05/08/22 05/08/22 06:51 06:51 WBC 18.6 H RBC 3.27 L Hgb 10.3 L Hct 30.5 L MCV 93.4 MCH 31.4 MCHC 33.6 RDW 13.4 Plt Count 548 H Neut % (Auto) Not Reportable Lymph % (Auto) Not Reportable [place] % (Auto) Not Reportable Eos % (Auto) Not Reportable Baso % (Auto) Not Reportable Lymph # (Auto) Not Reportable [place] # (Auto) Not Reportable Baso # (Auto) Not Reportable Total Counted 100 Seg Neutrophils % 63.0 Band Neutrophils % 2.0 L Lymphocytes % (Manual) 27.0 Atypical Lymphs % 1.0 H Monocytes % (Manual) 3.0 Eosinophils % (Manual) 1.0 L Myelocytes % 3.0 H Neutrophils # (Manual) 83538 H Nucleated RBCs 9 H RBC Morphology Normal morphology Sodium 138 Potassium 3.4 Chloride 104 Carbon Dioxide 25 BUN 6 L Creatinine 0.53 Estimated GFR > 60 BUN/Creatinine Ratio 11.3 Glucose 105 H Calcium 8.2 L PFSH Medical History (Updated 05/05/22 @ 04:33 by Marvin Lundberg DO) Anemia Anxiety Chicken pox (1978) Depression Fibromyalgia Foot pain (2012) Gastric ulcer (01/24/10) Hypertension Hypothyroidism Irregular periods/menstrual cycles Mumps (1969) Osteoarthritis Recurrent sinusitis Surgical History Anesthesia History of incisional hernia repair (01/17/13) History of surgery (12/2015) Hx of abdominal surgery (01/24/10) Status post appendectomy (1977) Status post delivery (08/28/00) Status post right foot surgery (06/19/15) Family History Grandmother Hypertension Stroke Mother Age: 78 Hypertension Mental health problem Stroke Sister Age: 50 Hypertension High cholesterol Mental health problem Father Traffic accident Grandfather Swallowed foreign body Grandfather No problems noted. Grandmother No problems noted. Sister No problems noted. 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 Juan Carlos dan next week. 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 If she has high volume of bloody diarrhea would recommend a call to the clinic. Discharge orders & Medications Prescriptions: New hydrocodone-acetaminophen 5-325 mg Tablet 1 tab PO Q4H PRN (Reason: Pain, Moderate (4-6)) Qty: 20 0RF amoxicillin-pot clavulanate 875-125 mg tablet 1 tab PO BID Qty: 10 0RF Continued acetaminophen 500 mg capsule 1,000 mg PO Q6H PRN (Reason: Muscle Pain) cyclobenzaprine 10 mg tablet 10 mg PO TID PRN (Reason: Spasms) Label Comments: TAKE ONE TABLET BY MOUTH THREE TIMES DAILY, PT STATES TAKES ONLY AT BEDTIME atorvastatin 40 mg tablet 40 mg PO BEDTIME Label Comments: TAKE ONE TABLET BY MOUTH NIGHTLY AT BEDTIME trazodone 50 mg tablet 100 mg PO BEDTIME PRN (Reason: Insomnia) Label Comments: TAKE 2 TABLETS BY MOUTH AT BEDTIME NEEDED FOR INSOMNIA lisinopril 20 mg tablet 20 mg PO DAILY Label Comments: TAKE ONE TABLET BY MOUTH ONE TIME DAILY meloxicam 7.5 mg tablet 7.5 mg PO DAILY Label Comments: TAKE 1 TABLET BY MOUTH EVERY DAY WITH LARGEST MEAL triamterene-hydrochlorothiazid 37.5-25 mg tablet 1 tab PO DAILY Label Comments: TAKE ONE TABLET BY MOUTH ONE TIME DAILY omeprazole 20 mg capsule,delayed release(DR/EC) 20 mg PO BID Label Comments: TAKE ONE CAPSULE BY MOUTH TWICE DAILY FOR GASTRITIS paroxetine HCl 40 mg tablet 20 mg PO DAILY Label Comments: TAKE 1/2 TABLET BY MOUTH EVERY MORNING levothyroxine 112 mcg tablet 112 mcg PO DAILY Label Comments: TAKE ONE TABLET BY MOUTH EVERY MORNING duloxetine 60 mg capsule,delayed release(DR/EC) 60 mg PO BEDTIME Label Comments: TAKE ONE CAPSULE BY MOUTH ONE TIME DAILY Follow up/Referrals: Abbey Patel MD [Primary Care Provider] - Discharge Data Primary Care Provider: Abbey Patel Quality VTE Deep Vein Thrombosis/Pulmonary Embolism Present on Admission: No
--- NOTE | 2022-05-08 08:26 | CM.DPC ---
DCP Cont: P: Per MD, pt medically stable for discharge today. Pt to discharge home with spouse. Per PT, pt independent. No needs from this DCP. Felicia Dang RN/DCP
[2022-05-08 12:00] VITALS: BP 134/98; PULSE 98; RESP 17; TEMP 36.2; O2SAT 100
[2022-05-08 13:15] LABS: Clostridium Difficile Tox PCR Negative for C. diff (Negative)
--- NOTE | 2022-05-08 16:27 | PC.NURSE ---
Pt discharged home by private vehicle at 1445, escorted off floor by wheelchair, accompanied by hospital staff and spouse. IV and PICC line removed, discharge teaching provided including follow up appointment and new medications. Questions and concerns addressed. Pt left floor with all belongings.
== END 2022-05-08 16:31 | disposition home or self-care (01) | DRG 872 ==
LOC: ED 18:35 → AC 05-05 01:12 → ICU 05-05 02:05 → AC 05-06 20:32
PROVIDERS: Emergency Medicine; Admitting Provider Family Medicine; Emergency Provider Emergency Medicine; PCP Family Medicine; Referring Provider Emergency Medicine; Visit Provider Family Medicine
DX: A41.9 Sepsis, unspecified organism (principal); K56.7 Ileus, unspecified; N17.9 Acute kidney failure, unspecified; K52.9 Noninfective gastroenteritis and colitis, unspecified; F17.210 Nicotine dependence, cigarettes, uncomplicated; M79.7 Fibromyalgia; E03.9 Hypothyroidism, unspecified; I10 Essential (primary) hypertension; F41.9 Anxiety disorder, unspecified; F32.A Depression, unspecified; K21.9 Gastro-esophageal reflux disease without esophagitis; Z20.822 Contact with and (suspected) exposure to COVID-19
CPT/HCPCS: 0241U; 36415; 36569; 36592; 74018; 74176; 80048; 80053; 81001; 83605; 83690; 84145; 85007; 85014; 85018; 85025; 87040; 87493; 87507; 87797; 96365; 96367; 96375; 97116; 97162; 99222; 99232; 99238; 99284; 99291; C9113; J1170; J1642; J1650; J2270; J2405; J2543

== ENCOUNTER → 2022-05-19 12:41 | Outpatient (CLI) | payer SELFPAY ==
[2022-05-05 03:38] VITALS: BMI 35.8
== END ==
PROVIDERS: PCP Family Medicine; Referring Provider Family Medicine; Visit Provider Family Medicine
DX: R19.7 Diarrhea, unspecified (principal)
CPT/HCPCS: 87177

== ENCOUNTER 2022-05-28 08:53 | Emergency (ER) | payer SELFPAY ==
[2022-05-05 03:38] VITALS: BMI 35.8
[2022-05-28 09:24] VITALS: BP 183/113; PULSE 105; RESP 20; TEMP 36.7; O2SAT 100; BMI 38.7
--- NOTE | 2022-05-28 12:34 | ED.EXTPRO ---
HPI - Extremity Problem General Chief complaint: Extremity Problem,Nontraumatic Stated complaint: cellulitis both legs, peeling on toes&fingers Time Seen by Provider: 05/28/22 12:29 Source: patient Mode of arrival: Ambulatory Limitations: no limitations History of Present Illness HPI Narrative: The patient was admitted here about 2 weeks ago with gastroenteritis, potential sepsis. She received significant amount of IV fluids during the hospitalization, she had swelling to both lower extremities at the time of discharge the did not exist when she was admitted. Swelling is decreased. She has pain in both feet. The skin is peeling from the plantar feet on both sides. She is 2 prior surgeries to the right foot. She is distortion to the right medial foot. She has erythema on both lower extremities. There are no red streaks extending upper legs. She is no numbness or weakness to the feet. She is no fever chills. She is not diabetic. She is no numbness or tingling to her feet. She denies recent injury. Related Data Home Medications Medication Instructions Recorded Confirmed acetaminophen 500 mg capsule 1,000 mg PO Q6H PRN Muscle Pain 11/03/19 05/05/22 atorvastatin 40 mg tablet 40 mg PO BEDTIME 05/05/22 05/05/22 duloxetine 60 mg capsule,delayed 60 mg PO BEDTIME 05/05/22 05/05/22 release levothyroxine 112 mcg tablet 112 mcg PO DAILY 05/05/22 05/05/22 lisinopril 20 mg tablet 20 mg PO DAILY 05/05/22 05/05/22 omeprazole 20 mg capsule,delayed 20 mg PO BID 05/05/22 05/05/22 release paroxetine HCl 40 mg tablet 20 mg PO DAILY 05/05/22 05/05/22 trazodone 50 mg tablet 100 mg PO BEDTIME PRN Insomnia 05/05/22 05/05/22 triamterene 37.5 1 tab PO DAILY 05/05/22 05/05/22 mg-hydrochlorothiazide 25 mg tablet Previous Rx's Medication Instructions Recorded amoxicillin 875 mg-potassium 1 tab PO BID #10 tabs 05/08/22 clavulanate 125 mg tablet cyclobenzaprine 10 mg tablet See Rx Instructions .Route 05/20/22 .COMPLEX #30 tabs meloxicam 7.5 mg tablet See Rx Instructions .Route 12/27/22 .COMPLEX #30 tabs oxycodone 5 mg tablet 5 mg PO BID PRN pain #20 tabs 05/21/22 doxycycline hyclate 100 mg tablet 100 mg PO BID 7 days #14 tabs 05/28/22 Allergies Allergy/AdvReac Type Severity Reaction Status Date / Time felodipine [FELODIPINE] Allergy Severe EDEMA IN Verified 05/04/22 15:27 THE LOWER LEGS pineapple [PINEAPPLE] Allergy Severe TONGUE Verified 05/04/22 15:27 SWELLING strawberry [STRAWBERRY] Allergy Severe ITCHING, Verified 05/04/22 15:27 WELTS ON ARMS Sulfa (Sulfonamide Allergy Severe ANAPHYLAXIS Verified 05/04/22 15:27 Antibiotics) [SULFA (SULFONAMIDE ANTIBIOTICS)] tramadol [TRAMADOL] Allergy Severe SWELLING Verified 05/04/22 15:27 IN THE LEGS adhesive tape Allergy Intermediate red, Verified 05/04/22 15:27 blister, itching gabapentin [GABAPENTIN] Allergy Unknown leg Verified 05/04/22 15:27 swelling NSAIDS (Non-Steroidal Allergy Unknown irritates Verified 05/04/22 15:27 Anti-Inflamma GI tract [NSAIDS (NON-STEROIDAL ANTI-INFLAMMA] sucralfate AdvReac Mild itching Verified 05/04/22 15:27 Review of Systems Review of Systems ROS Unobtainable: All systems reviewed & are unremarkable except as noted in HPI and below Patient History Medical History (Updated 05/28/22 @ 12:53 by Deven Smart MD) Anemia Anxiety Chicken pox (1978) Depression Fibromyalgia Foot pain (2012) Gastric ulcer (01/24/10) Hypertension Hypothyroidism Irregular periods/menstrual cycles Mumps (1969) Osteoarthritis Recurrent sinusitis Surgical History Anesthesia History of incisional hernia repair (01/17/13) History of surgery (12/2015) Hx of abdominal surgery (01/24/10) Status post appendectomy (1977) Status post delivery (08/28/00) Status post right foot surgery (06/19/15) Family History Grandmother Hypertension Stroke Mother Age: 78 Hypertension Mental health problem Stroke Sister Age: 50 Hypertension High cholesterol Mental health problem Father Traffic accident Grandfather Swallowed foreign body Grandfather No problems noted. Grandmother No problems noted. Sister No problems noted. 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 seatbelt use: always helmet use: Yes water heater temp set < 120 deg: Yes working smoke detector in home: Yes fire extinguisher in home: Yes carbon monox detector in home: Yes firearms in home: No Smoking Status: Current every day smoker quit status: quit date established during the past year weight has: increased > 10 lbs well-balanced diet: daily or most days daily servings fruits/ve-4 caffeine: Yes eating out: 1-3 times/week Smoking Status: Current every day smoker alcohol intake frequency: holidays/special occasions only Substance Use Type: does not use Exam Initial Vital Signs Initial Vital Signs: Vital Signs Temperature 98.1 F 05/28/22 09:24 Pulse Rate 105 H 05/28/22 09:24 Respiratory Rate 20 05/28/22 09:24 Blood Pressure 183/113 H 05/28/22 09:24 Pulse Oximetry 100 05/28/22 09:24 Oxygen Delivery Method 05/28/22 09:24 Const General: cooperative, well developed, well groomed and No ill appearing HENMT Head: normocephalic and atraumatic Skin Other: Erythema to the soles of both feet due to excoriation of tissue. Focal area of warmth to the right medial plantar foot and the right lateral calcaneus. No induration or fluctuance . Cellulitis is noted, no lymphangitis. There are no open wounds. Neuro General: patient alert, patient awake and patient oriented x3 Other: Motor and sensory exam of both feet is normal. Extrem General: no pedal edema and no calf tenderness Other: Normal range of motion in both ankles and through both feet. Dorsalis pedis pulses are normal. Course Course Course Narrative: The patient was given an initial dose of doxycycline. She will be discharged on doxycycline for 7 days. She should seek follow-up with her doctor in about 10 days. Orders Ordered: ED Orders 05/28/22 12:29 Blood Culture Stat Complete Blood Count AUTO DIFF Stat Comprehensive Metabolic Panel Stat Lactate (Lactic Acid) Stat Procalcitonin Stat Troponin & CK Cardiac Panel Stat Acetaminophen (Acetaminophen 325 Mg Tablet) 975 mg PO NOW ONE Stop: 05/28/22 12:44 Doxycycline Hyclate (Doxycycline Hyclate 100 Mg Tablet) 100 mg PO NOW ONE Stop: 05/28/22 12:44 Sodium Chloride (Normal Saline 0.9%) 1,779 mls @ 593 mls/hr 30 ml/kg infuse over 3 hr (1779 ml) IV NOW ONE Stop: 05/28/22 15:28 Vital Signs Vital signs: Vital Signs - 8 hr 05/28/22 09:24 Temperature 98.1 F Pulse Rate 105 H Respiratory Rate 20 Blood Pressure 183/113 H Pulse Oximetry 100 Oxygen Delivery Method Room Air Discharge Plan Departure Patient Disposition: Home Clinical Impression: Cellulitis of foot, right Instructions: DI for Cellulitis -- Adult Activity Restrictions/Additional Instructions: Epsom salt/form water soaks to both feet twice daily until symptoms are improving. Doxycycline 2 times daily as prescribed. Tylenol for pain. Recheck with your doctor in about 10 days, return here as needed. Prescriptions: New doxycycline hyclate 100 mg tablet 100 mg PO BID 7 Days Qty: 14 0RF No Action cyclobenzaprine 10 mg tablet See Rx Instructions .ROUTE .COMPLEX Qty: 30 0RF Dose Instruction: TAKE ONE TABLET BY MOUTH THREE TIMES DAILY Rx Instructions: TAKE ONE TABLET BY MOUTH THREE TIMES DAILY meloxicam 7.5 mg tablet See Rx Instructions .ROUTE .COMPLEX Qty: 30 0RF Dose Instruction: TAKE 1 TABLET BY MOUTH EVERY DAY WITH LARGEST MEAL Rx Instructions: TAKE 1 TABLET BY MOUTH EVERY DAY WITH LARGEST MEAL oxycodone 5 mg tablet 5 mg PO BID PRN (Reason: pain) Qty: 20 0RF acetaminophen 500 mg capsule 1,000 mg PO Q6H PRN (Reason: Muscle Pain) atorvastatin 40 mg tablet 40 mg PO BEDTIME Label Comments: TAKE ONE TABLET BY MOUTH NIGHTLY AT BEDTIME trazodone 50 mg tablet 100 mg PO BEDTIME PRN (Reason: Insomnia) Label Comments: TAKE 2 TABLETS BY MOUTH AT BEDTIME NEEDED FOR INSOMNIA lisinopril 20 mg tablet 20 mg PO DAILY Label Comments: TAKE ONE TABLET BY MOUTH ONE TIME DAILY triamterene-hydrochlorothiazid 37.5-25 mg tablet 1 tab PO DAILY Label Comments: TAKE ONE TABLET BY MOUTH ONE TIME DAILY omeprazole 20 mg capsule,delayed release(DR/EC) 20 mg PO BID Label Comments: TAKE ONE CAPSULE BY MOUTH TWICE DAILY FOR GASTRITIS paroxetine HCl 40 mg tablet 20 mg PO DAILY Label Comments: TAKE 1/2 TABLET BY MOUTH EVERY MORNING levothyroxine 112 mcg tablet 112 mcg PO DAILY Label Comments: TAKE ONE TABLET BY MOUTH EVERY MORNING duloxetine 60 mg capsule,delayed release(DR/EC) 60 mg PO BEDTIME Label Comments: TAKE ONE CAPSULE BY MOUTH ONE TIME DAILY amoxicillin-pot clavulanate 875-125 mg tablet 1 tab PO BID Qty: 10 0RF Referrals: Abbey Patel MD [Primary Care Provider] - Stand Alone Forms: Patient Portal/API
--- NOTE | 2022-05-28 12:42 | PC.NURSE ---
1235 dr sherman at , verbal order not to place iv, draw blood, all orders canceled, verbal order.
[2022-05-28] MEDS: DOXYCYCLINE HYCLATE 100 MG TABLET PO (13:01)
[2022-05-28] MEDS: ACETAMINOPHEN 325 MG TABLET 975 MG PO (13:01)
[2022-05-28 13:06] VITALS: BP 159/100; PULSE 100; RESP 18; TEMP 36.6; O2SAT 99
== END 2022-05-28 13:06 | disposition home or self-care (01) ==
PROVIDERS: Emergency Provider Emergency Medicine; PCP Family Medicine
DX: L03.115 Cellulitis of right lower limb (principal); Z79.899 Other long term (current) drug therapy
CPT/HCPCS: 99283

== ENCOUNTER → 2022-09-30 14:22 | Outpatient (CLI) | payer OTHER, SELFPAY ==
[2022-05-05 03:38] VITALS: BMI 35.8
== END ==
PROVIDERS: PCP Family Medicine; Referring Provider Family Medicine; Visit Provider Surgery
DX: L89.893 Pressure ulcer of other site, stage 3 (principal); M79.672 Pain in left foot
CPT/HCPCS: 87070; 87075; 87077; 87147; 87186; 87205; 97597; 99203; 99213

== ENCOUNTER → 2022-10-04 10:46 | Outpatient (CLI) | payer OTHER, SELFPAY ==
[2022-05-05 03:38] VITALS: BMI 35.8
[2022-10-04 11:50] LABS: Add Manual Diff / Slide Review NO; Basophils Absolute Auto 100 /uL (0-100); Eosinophils Absolute Auto 200 /uL (0-450); Eosinophils Percent Auto 1.8 % (2-4); Hematocrit 38.7 % (36-46); Hemoglobin 13.1 g/dL (12.0-16.0); Lymphocytes Absolute Auto 4500 /uL (1100-4500); Lymphocytes Percent Auto 34.4 % (25-40); Mean Corpuscular HGB Conc 33.9 % (30-36); Mean Corpuscular Hemoglobin 31.4 PG (26-34); Mean Corpuscular Volume 92.8 fL (80-100); Monocytes Absolute Auto 600 /uL (0-900); Monocytes Percent Auto 4.8 % (3-14); Neutrophils Absolute Auto 7600 /uL (1500-7000); Platelet Count 412 X10^3/uL (150-400); Red Blood Cell Count 4.17 X10^6/uL (4.0-5.2); Red Cell Distribution Width 13.4 % (11.6-14.8); White Blood Cell Count 13.2 X10^3/uL (4.5-11.0)
[2022-10-04 12:02] LABS: Alanine Aminotransferase 21 IU/L (<35); Albumin 4.4 g/dL (3.5-5.0); Albumin Globulin Ratio 1.3 (1.0-2.8); Alkaline Phosphatase 85 U/L (38-126); Aspartate Aminotransferase 25 IU/L (14-36); BUN Creatinine Ratio 28.2 (6-22); Bilirubin Total 0.5 mg/dL (0.2-1.3); Blood Urea Nitrogen 33 mg/dL (7-17); Calcium 9.4 mg/dL (8.4-10.2); Carbon Dioxide 21 mmol/L (22-32); Chloride 101 mmol/L (98-107); Cholesterol 236 mg/dL (140-199); Estimated Glomerular Filt Rate 55 mL/min (>60); Globulin 3.3 g/dL (1.7-4.1); Glucose 95 mg/dL (70-100); HDL Cholesterol 63 mg/dL (40-60); HEMOLYSIS < 15 (0-50); Sodium 134 mmol/L (137-145); Total Protein 7.7 g/dL (6.3-8.2)
[2022-10-04 12:09] LABS: Triglycerides 829 mg/dL (35-150)
[2022-10-04 12:33] LABS: TSH w/ Reflex to FT4 6.58 uIU/mL (0.47-4.68)
[2022-10-04 13:14] LABS: Free T4, Direct Thyroxine 0.93 ng/dL (0.78-2.19)
== END ==
PROVIDERS: PCP Family Medicine; Referring Provider Family Medicine; Visit Provider Family Medicine
DX: E03.9 Hypothyroidism, unspecified (principal); D64.9 Anemia, unspecified; I10 Essential (primary) hypertension; E78.5 Hyperlipidemia, unspecified
CPT/HCPCS: 36415; 80053; 80061; 84439; 84443; 85025

== ENCOUNTER → 2022-10-07 14:17 | Outpatient (CLI) | payer OTHER, SELFPAY ==
[2022-05-05 03:38] VITALS: BMI 35.8
== END ==
PROVIDERS: PCP Family Medicine; Referring Provider Family Medicine; Visit Provider Surgery
DX: L89.893 Pressure ulcer of other site, stage 3 (principal)
CPT/HCPCS: 11042; 73080; 73110; 73630; 82043; 82274; 82570

== ENCOUNTER → 2022-10-07 15:14 | Outpatient (CLI) | payer OTHER, SELFPAY ==
[2022-05-05 03:38] VITALS: BMI 35.8
--- NOTE | 2022-10-07 15:31 | DI.RAD.S_ITS ---
PROCEDURE: XR FOOT LT MIN 3V INDICATIONS: Wound to left foot TECHNIQUE: 3 views of the foot were acquired. COMPARISON: None. FINDINGS: Bones: No fractures or dislocations. No suspicious bony lesions. No osseous erosions. Hallux valgus deformity noted. Pes planus deformity. Medial bunion noted. Severe midfoot osteoarthritis. Small dorsal calcaneal bone spur. Soft tissues: No tibiotalar joint effusion. Achilles tendon appears normal. IMPRESSION: No yfn evidence of osteomyelitis. Plain film radiographs can be insensitive to osteomyelitis during the initial 15 days of the disease process. If there is clinical concern for osteomyelitis, then three-phase nuclear medicine bone scan or MRI should be considered for further evaluation. Dictated by: Jennifer Olmedo MD, PhD on 10/07/2022 at 16:23 Approved by: Jennifer Olmedo MD, PhD on 10/07/2022 at 16:25
--- NOTE | 2022-10-07 15:31 | DI.RAD.S_ITS ---
PROCEDURE: XR ELBOW LT MIN 3V INDICATIONS: L elbow pain, no known injury TECHNIQUE: 3 views of the elbow were acquired. COMPARISON: None. FINDINGS: Bones: No fractures or dislocations. No suspicious bony lesions. Soft tissues: No elbow joint effusion. No suspicious soft tissue calcifications. IMPRESSION: No osseous lesion. If symptoms and/or clinical suspicion for pathology persists, further assessment with advanced imaging (e.g. CT, MRI or bone scan) should be considered. Dictated by: Jennifer Olmedo MD, PhD on 10/07/2022 at 16:23 Approved by: Jennifer Olmedo MD, PhD on 10/07/2022 at 16:23
--- NOTE | 2022-10-07 15:31 | DI.RAD.S_ITS ---
PROCEDURE: XR WRIST LT MIN 3V INDICATIONS: left wrist pain TECHNIQUE: 4 views of the wrist were acquired. COMPARISON: None. FINDINGS: Bones: No fractures or dislocations. No suspicious bony lesions. Mild 1st CMC joint osteoarthritis. Scaphoid view: Scaphoid is intact. Soft tissues: No suspicious soft tissue calcifications. IMPRESSION: No osseous lesion. If symptoms and/or clinical suspicion for pathology persists, further assessment with advanced imaging (e.g. CT, MRI or bone scan) should be considered. Dictated by: Jennifer Olmedo MD, PhD on 10/07/2022 at 16:25 Approved by: Jennifer Olmedo MD, PhD on 10/07/2022 at 16:25
[2022-10-07 18:42] LABS: Creatinine Urine Random 116.9 mg/dL
[2022-10-07 18:48] LABS: Microalbumi Creatinin Ratio Ur 5.9 ug/mg CR (<30); Microalbumin Urine Random 0.7 mg/dL (0-1.6)
[2022-10-09 17:30] LABS: Fecal Immunochemical Test Negative (Negative)
== END ==
PROVIDERS: PCP Family Medicine; Referring Provider Surgery; Visit Provider Surgery
DX: Z12.11 Encounter for screening for malignant neoplasm of colon (principal); D64.9 Anemia, unspecified; E03.9 Hypothyroidism, unspecified; I10 Essential (primary) hypertension; S91.302A Unspecified open wound, left foot, initial encounter; R52 Pain, unspecified
CPT/HCPCS: 73080; 73110; 73630; 82043; 82274; 82570

== ENCOUNTER → 2022-10-14 14:35 | Outpatient (CLI) | payer OTHER, SELFPAY ==
[2022-05-05 03:38] VITALS: BMI 35.8
== END ==
PROVIDERS: PCP Family Medicine; Referring Provider Family Medicine; Visit Provider Surgery
DX: L89.893 Pressure ulcer of other site, stage 3 (principal); I10 Essential (primary) hypertension; F17.210 Nicotine dependence, cigarettes, uncomplicated; M20.62 Acquired deformities of toe(s), unspecified, left foot
CPT/HCPCS: 11042; 99213

== ENCOUNTER → 2022-10-27 11:19 | Outpatient (CLI) | payer OTHER, SELFPAY ==
[2022-05-05 03:38] VITALS: BMI 35.8
== END ==
PROVIDERS: PCP Family Medicine; Referring Provider Family Medicine; Visit Provider Surgery
DX: I34.81 Nonrheumatic mitral (valve) annulus calcification (principal); S91.302A Unspecified open wound, left foot, initial encounter; R60.0 Localized edema; L89.893 Pressure ulcer of other site, stage 3; F17.210 Nicotine dependence, cigarettes, uncomplicated
CPT/HCPCS: 11042; 93306; Q9957

== ENCOUNTER → 2022-10-27 12:19 | Outpatient (CLI) | payer OTHER, SELFPAY ==
[2022-05-05 03:38] VITALS: BMI 35.8
--- NOTE | 2022-10-27 12:24 | DI.ECHO.S_ITS ---
[facility]---------[facility] +---------+ : : [address] [place] : : : : [id number] : : : : Phone: [phone]+ Echocardiogram Report + + :Name: KAROLINA CARNEY Study Date: 10/27/2022 Height: 66 in : :[facility] ReadingLocation: Weight: 227 lb : : Gender: Female BSA: 2.1 m2 : :: 1965 Age: 57 yrs BP: 141/86 mmHg: :Reason For Study: EDEMA : :Ordering Physician: WESTON, : :LORENA Performed By: Mindy Hernandez : :Referring: LORENA ONTIVEROS : + + Interpretation Summary Mild concentric left ventricular hypertrophy with ejection fraction 60-65%. Mild mitral annular calcification. No valvular regurgitation. Procedure: A two-dimensional transthoracic echocardiogram with color flow and Doppler was performed. The study quality was technically adequate. A contrast injection of Definity was performed to improve assessment of LV function. There is no prior echocardiogram noted for this patient. The heart rate ranged between 96-108 bpm during the study. Left Ventricle: The left ventricle is normal in size. There is mild concentric left ventricular hypertrophy. The ejection fraction is estimated to be 60-65%. There are no focal wall motion abnormalities. Diastolic function could not be accurately assessed due to unobtainable data. Right Ventricle: The right ventricle is normal in size and function. Atria: The left atrial size is normal. Right atrial size is normal. There is no Doppler evidence for an interatrial shunt. Mitral Valve: There is mild mitral annular calcification. The mitral valve is normal in structure and function. There is no mitral regurgitation noted. Aortic Valve: The aortic valve is trileaflet. The aortic valve opens well. There is no aortic valve stenosis. No aortic regurgitation is present. Tricuspid Valve: The tricuspid valve is normal in structure and function. No tricuspid regurgitation. Pulmonary artery pressures cannot be estimated because of the lack of a measurable TR jet velocity. Pulmonic Valve: The pulmonic valve is not well visualized. There is no pulmonic valvular regurgitation. Great Vessels: The aortic root is normal size. The dimensions of the ascending aorta are normal. The IVC is of normal diameter and collapses greater than 50% with a sniff. This suggests a low right atrial pressure of 3 mm Hg. Pericardium/ Pleura There is no pericardial effusion. There is no pleural effusion. MMode/2D Measurements & Calculations LVIDd: 4.6 cm LVOT diam: 2.0 cm LVIDs: 3.2 cm Ao root diam: 3.2 cm FS: 30.4 % asc Aorta Diam: 3.5 cm IVSd: 1.1 cm LVPWd: 1.2 cm LV valdez. diameter/BSA (cm/m^2): 2.2 LV sys. diameter/BSA (cm/m^2): 1.5 LA A2 area: 17.3 cm2 RA long axis: 5.0 cm LA A4 area: 14.7 cm2 RA area: 12.7 cm2 LA length (vol): 5.1 cm RA vol: 27.4 ml LA vol: 42.1 ml RA : 13.0 ml/m2 LA vol index: 19.9 ml/m2 IVC diam: 0.89 cm RVD1 (basal): 2.8 cm LVLs ap4: 6.6 cm RVD2 (mid): 2.0 cm LVLd ap2: 7.6 cm TAPSE_phl: 1.7 cm LVLs ap2: 6.1 cm Doppler Measurements & Calculations Ao V2 max: 142.0 cm/sec LVOT Max Lyle: 108.0 cm/sec Ao V2 mean: 95.9 cm/sec LV V1 max P.7 mmHg Ao max P.0 mmHg LV V1 VTI: 19.2 cm Ao mean P.0 mmHg SHARIF(I,D): 2.4 cm2 Ao V2 VTI: 25.5 cm SHARIF(V,D): 2.4 cm2 sev ratio: 0.75 SHARIF indexed to BSA (cm^2/m^2): 1.1 PA V2 max: 103.0 cm/sec SV(LVOT): 60.3 ml PA V2 mean: 76.9 cm/sec PA mean P.0 mmHg PA pr(Accel): 36.3 mmHg AV VR_phl: 0.76 SHARIF(VTI)/BSA_phl: 1.1 Electronically signed by: Avinash Arteaga on Reading Physician:10/27/2022 08:22 PM
== END ==
PROVIDERS: PCP Family Medicine; Referring Provider Family Medicine; Visit Provider Family Medicine
DX: R60.0 Localized edema (principal); S91.302A Unspecified open wound, left foot, initial encounter; I34.81 Nonrheumatic mitral (valve) annulus calcification
CPT/HCPCS: 93306; Q9957

== ENCOUNTER 2023-09-12 13:18 | Emergency (ER) | payer OTHER, SELFPAY ==
[2022-05-05 03:38] VITALS: BMI 35.8
[2023-09-12 13:34] VITALS: BP 117/73; PULSE 117; RESP 20; TEMP 36.7; O2SAT 98; BMI 37.1
[2023-09-12] MEDS: KETOROLAC 30 MG/ML VIAL IM (16:23)
--- NOTE | 2023-09-12 16:31 | ED_ITS ---
HPI - Extremity Problem <Priya Mckeon PA-C - Last Filed: 09/12/23 19:41> General Chief complaint: Extremity Problem,Nontraumatic Stated complaint: Bilateral hip pain Time Seen by Provider: 09/12/23 13:45 Source: patient Mode of arrival: Ambulatory History of Present Illness HPI Narrative: 58-year-old female with history of chronic back pain and fibromyalgia here for bilateral low back pain that started 5 days ago. No history of injury or trauma. She denies any new or unusual activities prior to the onset. States she was walking to her kitchen when she started feeling pain in the bilateral low back/buttocks area. There has been no radiation to either leg and she denies any numbness or tingling or weakness in the lower extremities. She takes cyclobenzaprine nightly for chronic back pain. She is also tried Tylenol a few times without relief. States she is unable to take oral NSAIDs due to history of peptic ulcer however she is able to tolerate Toradol and states it has helped her significantly in the past with flare-ups of back pain. She is mostly sedentary. She denies any bowel or bladder incontinence. Related Data Previous Rx's Medication Instructions Recorded oxycodone 5 mg tablet 5 mg PO DAILY PRN pain #5 tabs 09/23/22 atorvastatin 40 mg tablet 40 mg PO ONCE PM #90 tabs 02/18/23 duloxetine 60 mg capsule,delayed 60 mg PO DAILY #90 caps 02/18/23 release lisinopril 40 mg tablet 40 mg PO DAILY #90 tabs 05/19/23 paroxetine HCl 40 mg tablet 20 mg (1/2 x 40 mg) PO QAM #45 tabs 05/19/23 cyclobenzaprine 10 mg tablet 10 mg PO 3XD #30 tabs 06/16/23 levothyroxine 112 mcg tablet 112 mcg PO DAILY #90 tabs 07/07/23 meloxicam 7.5 mg tablet 7.5 mg PO DAILY #90 tabs 08/06/23 omeprazole 20 mg capsule,delayed 20 mg PO BID #60 caps 08/06/23 release trazodone 50 mg tablet 100 mg (2 x 50 mg) PO BEDTIME for 08/06/23 insomnia #60 tabs triamterene 37.5 1 tab PO DAILY #30 tabs 08/06/23 mg-hydrochlorothiazide 25 mg tablet baclofen 10 mg tablet 10 mg PO TID #30 tabs 09/12/23 hydrocodone 5 mg-acetaminophen 325 1 tab PO BID PRN pain #5 tabs 09/12/23 mg tablet Allergies Allergy/AdvReac Type Severity Reaction Status Date / Time felodipine [FELODIPINE] Allergy Severe EDEMA IN Verified 09/12/23 13:33 THE LOWER LEGS pineapple [PINEAPPLE] Allergy Severe TONGUE Verified 09/12/23 13:33 SWELLING strawberry [STRAWBERRY] Allergy Severe ITCHING, Verified 09/12/23 13:33 WELTS ON ARMS Sulfa (Sulfonamide Allergy Severe ANAPHYLAXIS Verified 09/12/23 13:33 Antibiotics) [SULFA (SULFONAMIDE ANTIBIOTICS)] tramadol [TRAMADOL] Allergy Severe SWELLING Verified 09/12/23 13:33 IN THE LEGS adhesive tape Allergy Intermediate red, Verified 09/12/23 13:33 blister, itching gabapentin [GABAPENTIN] Allergy Unknown leg Verified 09/12/23 13:33 swelling NSAIDS (Non-Steroidal Allergy Unknown irritates Verified 09/12/23 13:33 Anti-Inflamma GI tract [NSAIDS (NON-STEROIDAL ANTI-INFLAMMA] sucralfate AdvReac Mild itching Verified 09/12/23 13:33 Review of Systems <Priya Mckeon PA-C - Last Filed: 09/12/23 19:41> Review of Systems ROS Unobtainable: All systems reviewed & are unremarkable except as noted in HPI and below Patient History <Priya Mckeon PA-C - Last Filed: 09/12/23 19:41> Medical History (Updated 09/12/23 @ 16:32 by Priya Mckeon PA-C) Orbital fracture Foot pain (2012) Recurrent sinusitis Gastric ulcer (01/24/10) Anemia Chicken pox (1978) Hypertension Hypothyroidism Irregular periods/menstrual cycles Mumps (1969) Osteoarthritis Depression Anxiety Surgical History Anesthesia History of surgery (12/2015) Status post right foot surgery (06/19/15) History of incisional hernia repair (01/17/13) Hx of abdominal surgery (01/24/10) Status post delivery (08/28/00) Status post appendectomy (1977) Family History Grandmother Hypertension Stroke Mother Age: 79 Hypertension Mental health problem Stroke Sister Age: 51 Hypertension High cholesterol Mental health problem Father Traffic accident Grandfather Swallowed foreign body Grandfather No problems noted. Grandmother No problems noted. Sister No problems noted. 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 seatbelt use: always helmet use: Yes water heater temp set < 120 deg: Yes working smoke detector in home: Yes fire extinguisher in home: Yes carbon monox detector in home: Yes firearms in home: No Smoking Status: Current every day smoker quit status: quit date established during the past year weight has: increased > 10 lbs well-balanced diet: daily or most days daily servings fruits/ve-4 caffeine: Yes eating out: 1-3 times/week Smoking Status: Current every day smoker alcohol intake frequency: holidays/special occasions only Substance Use Type: does not use Exam <Priya Mckeon PA-C - Last Filed: 09/12/23 19:41> Narrative Exam Narrative: GENERAL: Well-developed, well-nourished, appears stated age. Obese. In no acute distress HEAD: Atraumatic. Normocephalic. EYES: Pupils equal round and reactive. Extraocular motions intact. No scleral icterus. No injection or drainage. ENT: Nose without bleeding, purulent drainage. Airway patent. NECK: Trachea midline. Non tender RESPIRATORY: Respiratory rate and effort normal EXTREMITIES: No edema or joint tenderness. NEURO: AOx3. No focal neurologic deficits. Normal strength and sensation in bilateral lower extremities. No footdrop. Ambulates without assistance but ambulating appears painful. BACK: Spine midline, nontender, no step-offs or deformity or crepitus. Tenderness to bilateral paraspinal musculature in the lower back and to the bilateral sacral area. No sciatic nerve tenderness. SKIN: No rash or erythema of visible areas Initial Vital Signs Initial Vital Signs: Vital Signs Temperature 98.0 F 09/12/23 13:34 Pulse Rate 117 H 09/12/23 13:34 Respiratory Rate 20 09/12/23 13:34 Blood Pressure 117/73 09/12/23 13:34 Pulse Oximetry 98 09/12/23 13:34 Oxygen Delivery Method Room Air 09/12/23 13:34 <Braulio Reed DO - Last Filed: 09/17/23 07:10> Initial Vital Signs Initial Vital Signs: Vital Signs Temperature 98.0 F 09/12/23 13:34 Pulse Rate 117 H 09/12/23 13:34 Respiratory Rate 20 09/12/23 13:34 Blood Pressure 117/73 09/12/23 13:34 Pulse Oximetry 98 09/12/23 13:34 Oxygen Delivery Method Room Air 09/12/23 13:34 Course <Priya Mckeon PA-C - Last Filed: 09/12/23 19:41> Orders Ordered: Discontinued Medications Ketorolac Tromethamine (Ketorolac 30 Mg/Ml Vial) 30 mg IM NOW ONE Stop: 09/12/23 16:06 Last Admin: 09/12/23 16:23 Dose: 30 mg Documented By: ELVIN Lidocaine (Remove Lidocaine Patch) 1 each TOP BEDTIME ONE Stop: 09/12/23 16:07 Last Admin: 09/12/23 16:33 Dose: 1 each Documented By: ELVIN Vital Signs Vital signs: Vital Signs - 8 hr 09/12/23 13:34 09/12/23 16:54 Temperature 98.0 F Pulse Rate 117 H 90 Respiratory Rate 20 18 Blood Pressure 117/73 142/81 H Pulse Oximetry 98 98 Oxygen Delivery Method Room Air Room Air <DO Joe Connell Last Filed: 09/17/23 07:10> Orders Ordered: Discontinued Medications Ketorolac Tromethamine (Ketorolac 30 Mg/Ml Vial) 30 mg IM NOW ONE Stop: 09/12/23 16:06 Last Admin: 09/12/23 16:23 Dose: 30 mg Documented By: ELVIN Lidocaine (Remove Lidocaine Patch) 1 each TOP BEDTIME ONE Stop: 09/12/23 16:07 Last Admin: 09/12/23 16:33 Dose: 1 each Documented By: ELVIN Vital Signs Vital signs: Vital Signs - 8 hr 09/12/23 13:34 09/12/23 16:54 Temperature 98.0 F Pulse Rate 117 H 90 Respiratory Rate 20 18 Blood Pressure 117/73 142/81 H Pulse Oximetry 98 98 Oxygen Delivery Method Room Air Room Air MDM - Extremity (Nontraumatic) <Priya Mckeon PA-C - Last Filed: 09/12/23 19:41> [facility] Narrative Medical decision making narrative: Patient here with low back pain that started 5 days ago. Atraumatic. She has no red flag symptoms such as bowel or bladder incontinence, trauma to the back, saddle anesthesia, footdrop, or other focal neurologic deficits. No imaging indicated at this time Her examination reveals some paraspinal muscle tenderness to the lumbar and sacral areas. She has no symptoms of sciatica radiating to her extremities. Highly suspect this is musculoskeletal in origin. She has been on cyclobenzaprine for a long time so I recommend she stop that and try baclofen instead. She was given Toradol IM here in the ED. strongly recommend she utilize Tylenol and lidocaine patches for pain but if she has breakthrough pain or is unable to sleep I did give her 5 tablets of [place]. We discussed stretches and range of motion exercises that can be helpful for low back pain. We discussed possibly doing physical therapy or care support representative. Recommend she follow up with her PCP if not improving to discuss the next step in treatment. Stable for discharge at this time Discharge Plan Departure Patient Disposition: Home Clinical Impression: Low back pain Qualifiers: Chronicity: acute Back pain laterality: bilateral Sciatica presence: without sciatica Qualified Code(s): M54.50 - Low back pain, unspecified Instructions: DI for Low Back Pain, Activity May Be Better Than Rest for Low Back Pain Recovery Activity Restrictions/Additional Instructions: Thank you for choosing us to care for you today. You were seen for low back pain. Your history and exam did not give any indication that you needed imaging (such as x-ray) of your back today. It appears you are having musculoskeletal pain of your low back. You were given pain medication in the emergency department and a prescription for pain medication as well. Please use Tylenol throughout the day as needed for pain, and for severe breakthrough pain or for pain at bedtime you may use the pain medication (hydrocodone) that was prescribed. Please stop taking your cyclobenzaprine in order to take the baclofen that was prescribed (muscle relaxer). If you are not having any improvement in the next 1-2 weeks please follow up with her primary care physician to discuss the next in treatment. Please perform low back exercises and stretches as we discussed. Prescriptions: New baclofen 10 mg tablet 10 mg PO TID Qty: 30 0RF hydrocodone-acetaminophen 5-325 mg tablet 1 tab PO BID PRN (Reason: pain) Qty: 5 0RF No Action oxycodone 5 mg tablet 5 mg PO DAILY PRN (Reason: pain) Qty: 5 0RF duloxetine 60 mg capsule,delayed release(DR/EC) 60 mg PO DAILY Qty: 90 1RF atorvastatin 40 mg tablet 40 mg PO ONCE PM Qty: 90 1RF paroxetine HCl 40 mg tablet 20 mg PO QAM Qty: 45 1RF lisinopril 40 mg tablet 40 mg PO DAILY Qty: 90 1RF cyclobenzaprine 10 mg tablet 10 mg PO 3XD Qty: 30 0RF levothyroxine 112 mcg tablet 112 mcg PO DAILY Qty: 90 0RF triamterene-hydrochlorothiazid 37.5-25 mg tablet 1 tab PO DAILY Qty: 30 0RF trazodone 50 mg tablet 100 mg PO BEDTIME Qty: 60 0RF meloxicam 7.5 mg tablet 7.5 mg PO DAILY Qty: 90 0RF omeprazole 20 mg capsule,delayed release(DR/EC) 20 mg PO BID Qty: 60 0RF Referrals: Abbey Patel MD [Primary Care Provider] - Stand Alone Forms: Patient Portal/API ED Sign-out <Braulio Reed, - Last Filed: 09/17/23 07:10> [facility] ED Attending [facility] Attestation: Dr Reed Co-Sign Statement: I was available for consultation during this patient's emergency department visit. This chart is signed by myself for administrative purposes only. I did not have direct contact with this patient during this visit. They were seen independently by the APC.
[2023-09-12 16:54] VITALS: BP 142/81; PULSE 90; RESP 18; O2SAT 98
== END 2023-09-12 17:03 | disposition home or self-care (01) ==
PROVIDERS: Emergency Provider Physician Assistant; PCP Family Medicine
DX: M54.50 Low back pain, unspecified (principal)
CPT/HCPCS: 96372; 99283; J1885

== ENCOUNTER → 2023-09-26 11:28 | Outpatient (CLI) | payer OTHER, SELFPAY ==
[2022-05-05 03:38] VITALS: BMI 35.8
--- NOTE | 2023-09-26 11:30 | DI.MG.S_ITS ---
BILATERAL DIGITAL SCREENING MAMMOGRAM 3D/2D WITH CAD: 09/26/2023 CLINICAL: Routine screening. Family history of breast cancer. Comparison is made to exams dated: 11/27/2020 mammogram, 10/22/2019 mammogram, and 10/10/2017 mammogram - [facility]. There are scattered areas of fibroglandular density in both breasts (category b / 25%-50% glandular tissue). Current study was also evaluated with a Computer Aided Detection (CAD) system. No significant masses, calcifications, or other findings are seen in either breast. There has been no significant interval change. IMPRESSION: NEGATIVE There is no mammographic evidence of malignancy. A 1 year screening mammogram is recommended. Based on the Tyrer Cuzick model (a risk assessment model) the patient's lifetime risk is 6.1% and her 10 year risk is 2.0%. According to the ACR, ACS, and NCCN guidelines, an annual breast MRI exam along with mammogram is recommended if the patient's lifetime risk is 20% or greater. This exam was interpreted at Station ID: [id number]. NOTE: For mammograms, a report in lay terms will be sent to the patient. Approximately 15% of breast malignancies will not be visualized mammographically. In the management of a palpable breast mass, a negative mammogram must not discourage biopsy of a clinically suspicious lesion. Electronically Signed By: Fahad bethea/saroj:09/26/2023 14:47:58 letter sent: Normal Exam ACR BI-RADS Category 1: Negative [id number]
== END ==
PROVIDERS: PCP Family Medicine; Referring Provider Family Medicine; Visit Provider Family Medicine
DX: Z12.31 Encounter for screening mammogram for malignant neoplasm of breast (principal); R92.323 Mammographic fibroglandular density, bilateral breasts; Z80.3 Family history of malignant neoplasm of breast
CPT/HCPCS: 77063; 77067

== ENCOUNTER → 2024-01-18 14:52 | Outpatient (CLI) | payer OTHER, SELFPAY ==
[2022-05-05 03:38] VITALS: BMI 35.8
[2024-01-18 15:30] LABS: Add Manual Diff / Slide Review NO; Basophils Absolute Auto 100 /uL (0-100); Eosinophils Absolute Auto 500 /uL (0-450); Eosinophils Percent Auto 3.1 % (2-4); Hematocrit 38.4 % (36-46); Hemoglobin 12.9 g/dL (12.0-16.0); Lymphocytes Absolute Auto 5400 /uL (1100-4500); Lymphocytes Percent Auto 36.4 % (25-40); Mean Corpuscular HGB Conc 33.6 % (30-36); Mean Corpuscular Hemoglobin 31.7 PG (26-34); Mean Corpuscular Volume 94.5 fL (80-100); Monocytes Absolute Auto 800 /uL (0-900); Monocytes Percent Auto 5.2 % (3-14); Neutrophils Absolute Auto 8100 /uL (1500-7000); Neutrophils Percent Auto 54.3 % (50-75); Platelet Count 394 X10^3/uL (150-400); Red Blood Cell Count 4.07 X10^6/uL (4.0-5.2); Red Cell Distribution Width 12.5 % (11.6-14.8); White Blood Cell Count 14.9 X10^3/uL (4.5-11.0)
[2024-01-18 15:47] LABS: Hemoglobin A1C% w Est Avg Glu 5.3 % (4.0-6.0)
[2024-01-18 16:09] LABS: Alanine Aminotransferase 25 IU/L (<35); Albumin 4.5 g/dL (3.5-5.0); Albumin Globulin Ratio 1.4 (1.0-2.8); Alkaline Phosphatase 93 U/L (38-126); Aspartate Aminotransferase 29 IU/L (14-36); BUN Creatinine Ratio 26.3 (6-22); Bilirubin Total 0.4 mg/dL (0.2-1.3); Blood Urea Nitrogen 26 mg/dL (7-17); Calcium 10.1 mg/dL (8.4-10.2); Carbon Dioxide 24 mmol/L (22-32); Chloride 104 mmol/L (98-107); Cholesterol 187 mg/dL (140-199); Estimated Glomerular Filt Rate > 60 mL/min (>60); Globulin 3.3 g/dL (1.7-4.1); Glucose 95 mg/dL (70-100); HDL Cholesterol 54 mg/dL (40-60); HEMOLYSIS < 15 (0-50); Potassium 4.7 mmol/L (3.4-5.1); Sodium 136 mmol/L (137-145); Total Protein 7.8 g/dL (6.3-8.2); Triglycerides 413 mg/dL (35-150)
[2024-01-18 16:13] LABS: Creatinine Urine Random 41.87 mg/dL
[2024-01-18 16:15] LABS: Microalbumin Urine Random 4.7 mg/dL (0-1.6)
--- NOTE | 2024-01-18 16:42 | DI.RAD.S_ITS ---
PROCEDURE: XR SHOULDER LT MIN 2V INDICATIONS: left shoulder pain TECHNIQUE: 3 views of the shoulder were acquired. COMPARISON: None. FINDINGS: Bones: No fractures or dislocations. Yavy-xi-yehgoahr acromioclavicular joint and glenohumeral joint osteoarthritic changes are seen with joint space narrowing, subchondral sclerosis and small marginal osteophyte formation. No suspicious bony lesions. Visualized ribs appear intact. Soft tissues: No suspicious soft tissue calcifications. IMPRESSION: [id number] left shoulder joint osteoarthritis. No fracture or dislocation. No gross soft tissue abnormalities. Dictated by: Adarsh Cohen M.D. on 01/19/2024 at 14:41 Approved by: Adarsh Cohen M.D. on 01/19/2024 at 14:43
[2024-01-18 17:50] LABS: Free T4, Direct Thyroxine 0.73 ng/dL (0.78-2.19)
== END ==
PROVIDERS: PCP Family Medicine; Referring Provider Family Medicine; Visit Provider Family Medicine
DX: I10 Essential (primary) hypertension (principal); K21.9 Gastro-esophageal reflux disease without esophagitis; E03.9 Hypothyroidism, unspecified; Z87.11 Personal history of peptic ulcer disease; E78.5 Hyperlipidemia, unspecified; F41.9 Anxiety disorder, unspecified; F32.9 Major depressive disorder, single episode, unspecified; R60.0 Localized edema; E04.1 Nontoxic single thyroid nodule; M25.512 Pain in left shoulder; R73.9 Hyperglycemia, unspecified; M19.012 Primary osteoarthritis, left shoulder
CPT/HCPCS: 36415; 73030; 80053; 80061; 82043; 82570; 83036; 84439; 84443; 85025

== ENCOUNTER → 2024-07-15 11:09 | Outpatient (CLI) | payer BC, SELFPAY ==
[2022-05-05 03:38] VITALS: BMI 35.8
[2024-07-15 15:05] LABS: Free T4, Direct Thyroxine 1.05 ng/dL (0.78-2.19)
== END ==
PROVIDERS: PCP Family Medicine; Referring Provider Family Medicine; Visit Provider Family Medicine
DX: E03.9 Hypothyroidism, unspecified (principal)
CPT/HCPCS: 36415; 84439; 84443